=== PATIENT | female | born 1980 | race Caucasian/White ===

== ENCOUNTER → 2016-10-24 | Outpatient (CLI) | payer OTHER ==
[~2016-10-24] MED LIST: HYOS0.1216 PO; NF-ESOM40C PO; OXYC-197 PO; PROM25TA14 PO
--- OUTSIDE RECORDS SUMMARY | 2016-10-24 10:37 | XMS REPORT | Continuity of Care Document ---
Author Author [facility] Organization [facility] Address Unknown Phone Unavailable Care Team Providers Care Improvement Intern Name Role Phone ARMIDA GUERRERO MD PCP Insurance Providers Payer Name Policy Number Subscriber Name Relationship [employer] [id number] Adam Higgins 18 Self / Same As Patient Enter Insurance Name [id number] Jewel Higgins 01 Advance Directives Directive Response Recorded Date/Time Advance Directives No 06/28/16 9:37am Organ Donor Yes 06/28/16 9:37am Resuscitation Status Full Code 06/28/16 9:37am Problems No problem information available. Medications Current Home Medications Medication Dose Units Route Directions Days/Qty Instructions Start Date Hyoscyamine Sulfate 0.125 Mg 0.125 Mg Oral Every 6 Hours as needed for Pain 06/23/16 Promethazine Hcl (Phenergan Tablet) 25 Mg 25 Mg Oral Three Times A Day as needed for Nausea/Vomiting 06/23/16 Esomeprazole Magnesium 40 Mg 40 Mg Oral Twice A Day 06/23/16 Oxycodone Hcl/Acetaminophen 1 Each 1 Each Oral Every 4HRS as needed for Abdominal Pain 30 06/28/16 Social History Social History Problem Response Recorded Date/Time Alcohol Use Rarely Uses 06/28/2016 9:37am Recreational Drug Use No 06/28/2016 9:37am Recent Foreign Travel No 06/28/2016 9:37am Recent Infectious Disease Exposure No 06/28/2016 9:37am Smoking Status Never a Smoker 06/28/2016 9:37am Recent Hopitalizations No 06/28/2016 9:37am Query Response Start Date Stop Date Smoking Status Never a Smoker Hospital Discharge Instructions Patient Instructions Physician Instructions New, Converted or Re-Newed RX: RX on Chart Plan of Care/Instructions/FU: dressings off in 48 hours. Incentive spirometry. Follow-up in 3 weeks. Activity as Tolerated: Yes Discharge Diet: No Restrictions Care Plan Patient Instructions:: dressings off in 48 hours. Incentive spirometry. Follow-up in 3 weeks. Plan of Care Discharge Date 06/28/16 3:36pm Instructions/Education Provided ANESTHESIA INSTRUCTIONS POSTOP Laparoscopic Cholecystectomy (DC) Prescriptions See Medication Section Functional Status No functional status results. Allergies, Adverse Reactions, Alerts Allergen Type Severity Reaction Status Last Updated Codeine Allergy Unknown NAUSEA Active 06/23/16 Immunizations No immunization records. Vital Signs Acute Vital Signs Vital Response Date/Time Temperature (Fahrenheit) 97.3 degrees F (97.6 - 99.5) 06/28/2016 3:36pm Temperature (Calculated Celsius) 36.41628 degrees C (36.4 - 37.5) 06/28/2016 3:15pm Temperature Source Temporal 06/28/2016 3:36pm Pulse Rate (adult) 75 bpm (60 - 90) 06/28/2016 3:36pm Respiratory Rate 16 bpm (12 - 24) 06/28/2016 3:36pm O2 Sat by Pulse Oximetry 98 % (88 - 100) 06/28/2016 3:36pm Blood Pressure 124/67 mm Hg 06/28/2016 3:36pm Blood Pressure Mean 119 mm Hg 06/23/2016 9:21am Pain Numeric Pain Scale 2 06/28/2016 3:36pm Pain Intensity 2 06/28/2016 3:15pm Height (Feet) 5 feet 06/28/2016 9:37am Height (Inches) 1.00 inches 06/28/2016 9:37am Height (Calculated Centimeters) 154.871290 cm 06/28/2016 9:37am Weight (Pounds) 220 pounds 06/28/2016 9:37am Weight (Ounces) 5.0 oz 06/28/2016 9:37am Weight (Calculated Grams) 38634.07 gm 06/28/2016 9:37am Weight (Calculated Kilograms) 99.906330 kilograms 06/28/2016 9:37am Calculated BMI 41.6 06/28/2016 9:37am Results Pending Microbiology Results Procedure Source Collection Date/Time Procedures Procedure Status Date Provider(s) Robot-assisted laparoscopic cholecystectomy Completed 06/28/16 BARRERA VAZQUEZ MD Encounters Encounter Location Arrival/Admit Date Discharge/Depart Date Attending Provider Departed [facility] 06/28/16 9:35am 3:36pm BARRERA VAZQUEZ MD Departed Clinic [facility] 06/23/16 9:05am 06/23/16 9: 36am BARRERA VAZQUEZ MD Registered Clinic [facility] 06/20/16 6:52am CHRISTIANO DOWNING APRN
[2016-10-24 11:14] LABS: BASOPHILS % (AUTO) 1 % (0-10); EOSINOPHILS # (AUTO) 0.3 10^3/uL (0.0-0.3); EOSINOPHILS % (AUTO) 5 % (0-10); LYMPHOCYTES # (AUTO) 2.4 X 10^3 (1.0-4.0); LYMPHOCYTES % (AUTO) 33 % (12-44); MEAN CORPUSCULAR HEMOGLOBIN 27 PG (25-34); MEAN CORPUSCULAR HGB CONC 34 G/DL (32-36); MEAN CORPUSCULAR VOLUME 79 FL (80-99); MEAN PLATELET VOLUME 8.7 FL (7.4-10.4); MONOCYTES # (AUTO) 0.6 X 10^3 (0.0-1.0); MONOCYTES % (AUTO) 8 % (0-12); NEUTROPHILS % (AUTO) 54 % (42-75); PLATELET COUNT 355 10^3/uL (130-400); RED BLOOD COUNT 4.93 10^6/uL (4.35-5.85); RED CELL DISTRIBUTION WIDTH 14.6 % (10.0-14.5); WHITE BLOOD COUNT 7.4 10^3/uL (4.3-11.0)
[2016-10-24 11:42] LABS: ALANINE AMINOTRANSFERASE 15 U/L (0-55); ALBUMIN 3.9 G/DL (3.2-4.5); ANION GAP 6 MMOL/L (5-14); ASPARTATE AMINO TRANSFERASE 11 U/L (5-34); BILIRUBIN,TOTAL 0.5 MG/DL (0.1-1.0); BLOOD UREA NITROGEN 12 MG/DL (7-18); BUN/CREATININE RATIO 16; CALCIUM 8.9 MG/DL (8.5-10.1); CARBON DIOXIDE 26 MMOL/L (21-32); CHLORIDE 107 MMOL/L (98-107); CREATINE KINASE 55 U/L (29-168); CREATININE SERUM 0.74 MG/DL (0.60-1.30); GFR ESTIMATED > 60; GLUCOSE 107 MG/DL (70-105); POTASSIUM 3.9 MMOL/L (3.6-5.0); SODIUM 139 MMOL/L (135-145); TOTAL PROTEIN 6.4 G/DL (6.4-8.2)
[2016-10-24 11:49] LABS: TROPONIN I < 0.30 NG/ML (<0.30)
== END ==
LOC: CARD 10:28
PROVIDERS: ATTEND Nurse Practitioner Family
DX: R07.9 Chest pain, unspecified (principal)
CPT/HCPCS: 36415; 80053; 82550; 84484; 85025; 93005

== ENCOUNTER → 2017-01-11 | Outpatient (CLI) | payer OTHER ==
--- NOTE | 2017-01-11 15:52 | Diagnostic Imaging Report ---
INDICATION: Burning pain going down left side and left shoulder for approximately 3 days. FINDINGS: Frontal, lateral and swimmer's views of the thoracic spine demonstrate no fracture or subluxation. The disc spaces are of normal width. Mild anterior osteophytes are seen anteriorly at the T7 level. IMPRESSION: There are minimal degenerative changes of the thoracic spine. Dictated by: Dictated on workstation # [id number]
--- NOTE | 2017-01-11 15:53 | Diagnostic Imaging Report ---
INDICATION: Complains of burning pain going down left side and left shoulder for 3 days. COMPARISON STUDY: None. FINDINGS: Three views of the left shoulder demonstrate no fracture or dislocation. Small osteophytes are seen off the acromioclavicular joint. The joint spaces are of normal width. IMPRESSION: There are small osteophytes off of the left acromioclavicular joint. Dictated by: Dictated on workstation # [id number]
== END ==
LOC: RAD 14:44
PROVIDERS: ATTEND Nurse Practitioner Family
DX: M25.512 Pain in left shoulder (principal)
CPT/HCPCS: 72072; 73030

== ENCOUNTER → 2017-03-07 | Outpatient (CLI) | payer OTHER | DX: M54.5 Low back pain (principal) ==

== ENCOUNTER → 2017-03-13 | Outpatient (CLI) | payer OTHER ==
--- NOTE | 2017-03-13 16:28 | Diagnostic Imaging Report ---
INDICATION: Left lower quadrant abdominal pain for two weeks. FINDINGS: Uterus measures 8.4 x 5.8 x 5.0 cm. The endometrium is prominent with a thickness of 1.7 cm. There is no discrete myometrial or endometrial mass documented. There is blood flow to both ovaries. Right ovary measures 2.7 x 1.8 x 1.8 cm and contains an approximately 1.4 cm cyst along its margin. The left ovary measures 4.2 x 2.6 x 2.1 cm with an approximately 2.4 x 1.8 x 2.3 cm hyperechoic focus which may represent complex cyst. Other consideration would include endometrioma. No definite free fluid is seen. IMPRESSION: 1. Endometrial thickness may be related to menstrual cycle and clinical correlation is recommended. If indicated, followup study could be performed to document resolution. 2. Hyperechoic 2.4 x 1.8 x 2.3 cm structure in the left ovary is nonspecific and could represent complex cyst or possible endometrioma. This could also be further evaluated after passage of several menstrual cycles to document stability or resolution. Dictated by: Dictated on workstation # [id number]
== END ==
LOC: RAD 14:36
PROVIDERS: ATTEND Nurse Practitioner Family
DX: N83.9 Noninflammatory disorder of ovary, fallopian tube and broad ligament, unspecified (principal); R10.2 Pelvic and perineal pain; R10.32 Left lower quadrant pain
CPT/HCPCS: 76830; 76856

== ENCOUNTER → 2017-03-22 | Outpatient (CLI) | payer OTHER ==
--- NOTE | 2017-03-22 13:28 | Diagnostic Imaging Report ---
PROCEDURE: MR imaging cervical spine without contrast. TECHNIQUE: Multiplanar, multisequence MR imaging of the cervical spine was performed without contrast. INDICATION: Neck pain. FINDINGS: There is straightening of the cervical spine curvature. The spinal alignment is otherwise normal. The vertebral body heights and disc heights are preserved. There is a mild disc desiccation in the yyeac-gc-dmz cervical spine levels. There is homogeneous bone marrow signal in the vertebral bodies. The spinal cord has normal caliber, signal, and contour. The foramen magnum and upper cervical canal are widely patent. C2-C3: Unremarkable. C3-C4: There is a minimal posterior disc herniation or thickening of the posterior longitudinal ligament with no spinal canal or foraminal stenosis at this level. C4-C5: No significant disc herniation. No spinal canal or foraminal stenosis. C5-C6: No significant disc herniation, no spinal canal or foraminal stenosis. C6-C7: Unremarkable. C7-T1: Unremarkable. IMPRESSION: There is straightening of the cervical spine which may reflect muscle spasm. No significant spinal canal or foraminal stenosis at any level. Very minimal degenerative changes. Dictated by: Dictated on workstation # [id number]
== END ==
LOC: RAD 11:36
PROVIDERS: ATTEND Orthopaedic Surgery
DX: M54.2 Cervicalgia (principal)
CPT/HCPCS: 72141

== ENCOUNTER 2017-08-24 09:41 | Outpatient (RCR) | payer OTHER ==
[~2017-08-24 09:41] MED LIST changes: +HYOS-20 PO; -HYOS0.1216 PO
== END 2017-11-22 | disposition home or self-care (01) ==
LOC: ONC 09:41
PROVIDERS: ATTEND Internal Medicine Hematology & Oncology
DX: R79.89 Other specified abnormal findings of blood chemistry (principal); Z86.718 Personal history of other venous thrombosis and embolism; I10 Essential (primary) hypertension; F12.90 Cannabis use, unspecified, uncomplicated; E66.01 Morbid (severe) obesity due to excess calories; Z68.41 Body mass index [BMI] 40.0-44.9, adult; Z79.82 Long term (current) use of aspirin; Z79.899 Other long term (current) drug therapy
CPT/HCPCS: 99214

== ENCOUNTER 2017-10-02 17:40 | Emergency (ER) | payer OTHER ==
[~2017-10-02] VITALS: Ht 154.9 cm; Wt 95.3 kg
[2017-10-02 18:17] LABS: BASOPHILS # (AUTO) 0.1 10^3/uL (0.0-0.1); BASOPHILS % (AUTO) 0 % (0-10); EOSINOPHILS # (AUTO) 0.3 10^3/uL (0.0-0.3); EOSINOPHILS % (AUTO) 2 % (0-10); HEMATOCRIT 38 % (35-52); HEMOGLOBIN 13.6 G/DL (11.5-16.0); LYMPHOCYTES # (AUTO) 5.9 X 10^3 (1.0-4.0); LYMPHOCYTES % (AUTO) 42 % (12-44); MEAN CORPUSCULAR HEMOGLOBIN 27 PG (25-34); MEAN CORPUSCULAR HGB CONC 36 G/DL (32-36); MEAN CORPUSCULAR VOLUME 76 FL (80-99); MEAN PLATELET VOLUME 9.7 FL (7.4-10.4); MONOCYTES # (AUTO) 1.1 X 10^3 (0.0-1.0); MONOCYTES % (AUTO) 8 % (0-12); NEUTROPHILS # (AUTO) 6.8 X 10^3 (1.8-7.8); NEUTROPHILS % (AUTO) 48 % (42-75); PLATELET COUNT 419 10^3/uL (130-400); RED BLOOD COUNT 5.02 10^6/uL (4.35-5.85); RED CELL DISTRIBUTION WIDTH 15.1 % (10.0-14.5); WHITE BLOOD COUNT 14.1 10^3/uL (4.3-11.0)
[2017-10-02 18:31] LABS: ALANINE AMINOTRANSFERASE 29 U/L (0-55); ALBUMIN 4.2 GM/DL (3.2-4.5); ALKALINE PHOSPHATASE 90 U/L (40-136); BILIRUBIN,TOTAL 0.5 MG/DL (0.1-1.0); BUN/CREATININE RATIO 23; CALCIUM 9.9 MG/DL (8.5-10.1); CARBON DIOXIDE 18 MMOL/L (21-32); CHLORIDE 103 MMOL/L (98-107); GFR ESTIMATED > 60; GLUCOSE 97 MG/DL (70-105); POTASSIUM 3.5 MMOL/L (3.6-5.0); SODIUM 137 MMOL/L (135-145); TOTAL PROTEIN 7.4 GM/DL (6.4-8.2)
[2017-10-02 18:33] VITALS: BP 160/82
--- NOTE | 2017-10-02 18:33 | ED General ---
General Chief Complaint: Respiratory Problems Stated Complaint: SOB Nursing Triage Note: PT REPORTS WITH SOA, WEAKNESS AFTER BEING DIAGNOSED ON SUNDAY AT [facility] WITH A PE AND STARTED ON XARELTO. PT REPORTS STARTING PERIOD ON THE FOLLOWING DAY AND HAVING A VERY HEAVY PERIOD D/T THE XARELTO. PT STATES SOA AND WEAKNESS WORSENING TODAY. Nursing Sepsis Screen: No Definite Risk Source of Information: Patient Exam Limitations: No Limitations History of Present Illness Time Seen by Provider: 18:00 Initial Comments This 37-year-old woman presents to the emergency room with complaints of shortness of breath and lightheadedness after being diagnosed with pulmonary embolus at [facility] on September 26. She has been on Xarelto since that time. She started her menstrual period on the following day, September 27. She has been bleeding heavily since. Normally her menstrual cycle lasts about 5 days but she continues to have bleeding now. Bleeding is finally starting to slow today. She has gone through 2-3 pads per hour throughout the last few days. She is concerned about anemia. She also has some cough in the mornings that is productive. This is a long-term problem. She denies any fever or chills. She is a daily smoker of marijuana but has not smoked in the past few days. Hemoglobin on September 26 was 11.5. Vital signs are within normal limits at this time. Allergies and Home Medications Allergies Coded Allergies: codeine (Verified Allergy, Unknown, NAUSEA, 06/23/16) Home Medications Esomeprazole Magnesium 40 Mg Cap, 40 MG PO BID, (Reported) Hyoscyamine Sulfate 0.125 Mg Tablet, 0.125 MG PO Q6H PRN for PAIN, (Reported) Oxycodone HCl/Acetaminophen 1 Each Tablet, 1 EACH PO Q4H PRN for ABDOMINAL PAIN , #30 Prescribed by: BARRERA VAZQUEZ on 06/28/16 1208 Promethazine HCl 25 Mg Tablet, 25 MG PO TID PRN for NAUSEA/VOMITING, (Reported) Constitutional: see HPI, weakness EENTM: no symptoms reported Respiratory: see HPI Cardiovascular: see HPI Gastrointestinal: no symptoms reported Genitourinary: no symptoms reported : No Musculoskeletal: no symptoms reported Skin: no symptoms reported Psychiatric/Neurological: No Symptoms Reported Hematologic/Lymphatic: No Symptoms Reported Past Fkikbvt-Therol-Wyvmrv Hx Patient Social History Alcohol Use: Rarely Uses Number of Drinks Today: II Alcohol Beverage of Choice: Other Recreational Drug Use: Yes Drug of Choice: MARIJUANA DAILY Smoking Status: Never a Smoker 2nd Hand Smoke Exposure: Yes Recent Foreign Travel: No Contact w/Someone Who Travel: No Recent Infectious Disease Expo: No Recent Hopitalizations: No Physical Abuse: No Sexual Abuse: No Mistreated: No Fear: No Immunizations Up To Date Tetanus Booster (TDap): Less than 5yrs Date of Influenza Vaccine: Jun 17, 2011 Seasonal Allergies Seasonal Allergies: Yes Surgeries History of Surgeries: Yes (LIPOMA REMOVED, WISDOM TEETH, RIGHT CTR, ) Surgeries: Appendectomy, Gallbladder, Tubal Ligation Respiratory History of Respiratory Disorde: Yes Respiratory Disorders: Pulmonary Embolism Cardiovascular History of Cardiac Disorders: Yes Cardiac Disorders: Deep Vein Thrombosis, Hypertension Neurological History of Neurological Disord: Yes (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; SPASMS) Reproductive System : No Hx Reproductive Disorders: No Genitourinary History of Genitourinary Disor: No Gastrointestinal History of Gastrointestinal Di: Yes Gastrointestinal Disorders: Gastroesophageal Reflux, Gall Bladder Disease Musculoskeletal History of Musculoskeletal Dis: Yes (abnormal curvature of the spine due to muscle spasm) Musculoskeletal Disorders: Spasms Endocrine History of Endocrine Disorders: No HEENT History of HEENT Disorders: No Cancer History of Cancer: No Psychosocial History of Psychiatric Problem: Yes Behavioral Health Disorders: Depression Suicide Risk Score: 1 Integumentary History of Skin or Integumenta: No Blood Transfusions History of Blood Disorders: No Physical Exam Vital Signs Vital Sign - Last 12Hours 10/02/17 18:03 Temp 97.5 Pulse 101 Resp 24 B/P (MAP) 159/81 (107) Pulse Ox 100 O2 Delivery Room Air Capillary Refill : Less Than 3 Seconds General Appearance: No Apparent Distress, WD/WN HEENT: PERRL/EOMI, Normal ENT Inspection, Pharynx Normal Neck: Normal Inspection Respiratory: Lungs Clear, Normal Breath Sounds, No Accessory Muscle Use, No Respiratory Distress Cardiovascular: Regular Rate, Rhythm, No Edema, No Murmur Extremity: Normal Inspection, No Pedal Edema Neurologic/Psychiatric: Alert, Oriented x3, No Motor/Sensory Deficits, Normal 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, 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 Norm as Tested Skin: Normal Color, Warm/Dry Progress/Results/Core Measures Suspected Sepsis Recent Fever Within 48 Hours: No Infection Criteria Present: None New/Unexplained Altered Menta: No Sepsis Screen: No Definite Risk Sepsis Diagnosis: SIRS Temperature:97.5 Pulse: 101 Respiratory Rate: 24 Laboratory Tests 10/02/17 17:58: White Blood Count 14.1H Blood Pressure 159 /81 Mean: 107 Laboratory Tests 10/02/17 17:58: Creatinine 0.90, INR Comment 2.1H, Platelet Count 419H, Total Bilirubin 0.5 Results/Orders Lab Results Micro Results My Orders Medications Given in ED Vital Signs/I&O Capillary Refill : Less Than 3 Seconds Blood Pressure Mean: 107 Progress Note #1: Time: 18:31 Progress Note Patient seen and examined. Labs ordered. We will obtain a chest x-ray and orthostatic blood pressures. Vital signs are within normal limits at this time. Progress Note #2: Progress Note Workup was relatively unremarkable be leukocytosis was incidentally noted. Further workup was pursued to rule out identifiable causes of infection. Influenza screen was negative. Chest x-ray and urine were also clear. Heart rate elevated mildly with orthostatic vital signs. A liter of IV fluids was administered which did improve patient's symptoms. Patient was instructed to discontinue aspirin while on Xarelto. Diagnostic Imaging Diagonstic Imaging: Xray Plain Films/CT/US/NM/MRI: chest Comments Chest x-ray viewed by me and report reviewed. See report below: NAME: ADAM DE OLIVEIRA MED REC#: [id number] PT STATUS: REG ER : 1980 PHYSICIAN: LISA CHANEY MD ADMIT DATE: 10/02/17/ER Draft Date of Exam:10/02/17 CHEST PA/LAT (2 VIEW) INDICATION: Shortness of breath and weakness and dizziness PA and lateral chest obtained at 0702 p.m. Heart and mediastinal silhouette are normal in appearance. The lungs are clear. There is no pneumothorax or pleural fluid. IMPRESSION: Negative chest. Dictated on workstation # [id number] Dict: 10/02/[id number] Trans: 10/02/171856 NEHA [id number] Interpreted by: CARLOS TROY MD Departure Impression Impression: Primary Impression: Menorrhagia Qualified Codes: N92.2 - Excessive menstruation at puberty Additional Impressions: Pulmonary embolus Qualified Codes: I26.99 - Other pulmonary embolism without acute cor pulmonale Anticoagulated Dyspnea Qualified Codes: R06.00 - Dyspnea, unspecified Leukocytosis Qualified Codes: D72.829 - Elevated white blood cell count, unspecified Disposition: 01 HOME, SELF-CARE Condition: Improved Departure-Patient Inst. Decision time for Depature: 22:27 Referrals: ARMIDA GUERRERO MD (PCP) Primary Care Physician CHRISTIANO DOWNING APRN (Family) Primary Care Physician Patient Instructions: Pulmonary Embolism (Blood Clot in the Lungs) Add. Discharge Instructions: Follow-up with your primary care provider soon as possible. Continue taking Xarelto but stop aspirin until otherwise directed by your doctor. Return to the emergency room if symptoms worsen. Avoid any exposure to lung irritants including smoking of any kind. All discharge instructions reviewed with patient and/or family. Voiced understanding. Copy Copies To 1: ARMIDA GUERRERO MD, JOSHUA T MD Oct 02, 2017 18:33
[2017-10-02 18:34] VITALS: BP_SYST 118; BP_SYST 129; BP_DIAS 84; BP_DIAS 91
[2017-10-02 18:40] LABS: INR 2.1 (0.8-1.4); PROTHROMBIN TIME PATIENT 23.4 SEC (12.2-14.7)
--- NOTE | 2017-10-02 18:58 | Diagnostic Imaging Report ---
INDICATION: Shortness of breath and weakness and dizziness PA and lateral chest obtained at 0702 p.m. Heart and mediastinal silhouette are normal in appearance. The lungs are clear. There is no pneumothorax or pleural fluid. IMPRESSION: Negative chest. Dictated by: Dictated on workstation # [id number]
[2017-10-02] MEDS ORDERED: NS IV 1000 ML 1,000 ML ONE (19:36)
[2017-10-02 20:57] LABS: BILIRUBIN,URINE NEGATIVE (NEGATIVE); CLARITY,URINE VERY CLOUDY; COLOR,URINE RED; GLUCOSE, URINE (UA) NEGATIVE (NEGATIVE); KETONES,URINE 2+ (NEGATIVE); LEUKOCYTE ESTERASE ,URINE 1+ (NEGATIVE); NITRITE,URINE NEGATIVE (NEGATIVE); PH,URINE 6.5 (5-9); PROTEIN,URINE 3+ (NEGATIVE); UROBILINOGEN,URINE NORMAL (NORMAL)
[2017-10-02 21:13] LABS: RBC,URINE TNTC /HPF; WBC,URINE RARE /HPF
[2017-10-02 22:35] VITALS: BP 137/88
== END 2017-10-02 22:34 | disposition home or self-care (01) ==
LOC: EDUNIT# 17:40 → ER 17:42
DX: N92.2 Excessive menstruation at puberty (principal); I26.99 Other pulmonary embolism without acute cor pulmonale; D72.829 Elevated white blood cell count, unspecified; I10 Essential (primary) hypertension; K21.9 Gastro-esophageal reflux disease without esophagitis; F32.9 Major depressive disorder, single episode, unspecified; F12.10 Cannabis abuse, uncomplicated; Z90.49 Acquired absence of other specified parts of digestive tract; Z98.51 Tubal ligation status; Z86.718 Personal history of other venous thrombosis and embolism; Z79.01 Long term (current) use of anticoagulants
CPT/HCPCS: 36415; 71046; 80053; 81000; 83880; 85025; 85610; 85730; 87804; 96360

== ENCOUNTER 2018-02-25 15:50 | Emergency (ER) | payer OTHER ==
[~2018-02-25] VITALS: Ht 154.9 cm; Wt 95.3 kg
--- OUTSIDE RECORDS SUMMARY | 2018-02-25 16:00 | XMS REPORT | CCD ---
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 Name Role Phone PP Unavailable CCM Unavailable Summary Purpose Interface Exchange Insurance Providers Payer name Policy type / Coverage type Covered constitution party ID Effective Begin Date Effective End Date [facility] Commercial Insurance [id number] Unknown Unknown [employer] Commercial Insurance [id number] Unknown Unknown Family history Runs in the family Diagnosis Age At Onset Skin cancer Unknown Diabetes mellitus Type 2 Unknown brain aneursym Unknown Colon cancer Unknown Breast cancer Unknown Alcoholism Unknown Hyperlipidemia Unknown Brother Diagnosis Age At Onset Asthma Unknown Mother Diagnosis Age At Onset Diabetes mellitus Type 2 Unknown Arthritis Unknown Hyperlipidemia Unknown Father Diagnosis Age At Onset Asthma Unknown Social History Social History Element Codes Description Effective Dates Marital status Unknown Jewel Higgins 06/15/2016 Employment Unknown Currently employed 06/15/[address]: 795386907 Never smoker 06/15/2016 Alcohol history Unknown occasionally drinks alcohol 06/15/2016 Allergies, Adverse Reactions, Alerts Allergies, Adverse Reactions, Alerts data not found Past Medical History Illness Codes Condition Status Onset Date Resolved Date Pulmonary Embolus Unknown Active 10/04/2017 Unknown Other pulmonary embolism without acute cor pulmonale ICD-9: 415.19 ICD-10: I26.99 Active 10/04/2017 Unknown Essential (primary) hypertension ICD-9: 401.1 ICD-10: I10 Active 08/07/2017 Unknown Other chest pain ICD-9 : 786.59 ICD-10: R07.89 Active 08/07/2017 Unknown Other specified abnormal findings of blood chemistry ICD-9: 790.92 ICD-10: R79.89 Active 08/07/2017 Unknown Cervicalgia ICD-9: 723.1 ICD-10: M54.2 Active 02/28/2017 Unknown Gastro-esophageal reflux disease without esophagitis ICD-9: 530.81 ICD-10: K21.9 Active 06/14/2016 Unknown Muscle spasm of back ICD-9: 724.8 ICD-10: M62.830 Active 07/19/2017 Unknown Headache ICD-9: 784.0 ICD-10: R51 Active 05/18/2017 Unknown Left lower quadrant pain ICD-9: 789.04 ICD-10: R10.32 Active 03/09/2017 Unknown Pelvic and perineal pain ICD-9: [id number] ICD-10: R10.2 Active 03/05/2017 Unknown Low back pain ICD-9: 724.2 ICD-10: M54.5 Active 03/05/2017 Unknown Sacroiliitis, not elsewhere classified ICD-9: 720.2 ICD-10: M46.1 Active 03/05/2017 Unknown Other muscle spasm ICD -9: 728.85 ICD-10: M62.838 Active 02/28/2017 Unknown Other obesity due to excess calories ICD-9: 278.00 ICD-10: E66.09 Active 01/17/2017 Unknown Pain in left shoulder ICD-9: 719.41 ICD-10: M25.512 Active 01/17/2017 Unknown Acute vulvitis ICD-9: 616.10 ICD-10: N76.2 Active 11/03/2016 Unknown Acute vaginitis ICD-9 : 623.5 ICD-10: N76.0 Active 10/24/2016 Unknown Contact with and (suspected) exposure to infections with a predominantly sexual mode of transmission ICD-9: V01.6 ICD-10: Z20.2 Active 10/24/2016 Unknown Encounter for gynecological examination (general) (routine ) without abnormal findings ICD-9: V72.31 ICD-10: Z01.419 Active 10/24/2016 Unknown Pain in right shoulder ICD-9: 719.41 ICD-10: M25.511 Active 08/15/2016 Unknown Cellulitis of abdominal wall ICD-9: 682.2 ICD-10: L03.311 Active 07/05/2016 Unknown Other allergic rhinitis ICD-9: 477.8 ICD-10: J30.89 Active 06/14/2016 Unknown Right upper quadrant pain ICD-9: 789.01 ICD-10: R10.11 Active 06/14/2016 Unknown Problems Condition Codes Effective Dates Condition Status Pulmonary Embolus Unknown 10/04/2017 Active Other pulmonary embolism without acute cor pulmonale ICD-9: 415.19 ICD-10: I26.99 10/04/2017 Active Essential (primary) hypertension ICD-9: 401.1 ICD-10: I10 08/07/2017 Active Other chest pain ICD-9 : 786.59 ICD-10: R07.89 08/07/2017 Active Other specified abnormal findings of blood chemistry ICD-9: 790.92 ICD-10: R79.89 08/07/2017 Active Cervicalgia ICD-9: 723.1 ICD-10: M54.2 02/28/2017 Active Gastro-esophageal reflux disease without esophagitis ICD-9: 530.81 ICD-10: K21.9 06/14/2016 Active Muscle spasm of back ICD-9: 724.8 ICD-10: M62.830 07/19/2017 Active Headache ICD-9: 784.0 ICD-10: R51 05/18/2017 Active Left lower quadrant pain ICD-9: 789.04 ICD-10: R10.32 03/09/2017 Active Pelvic and perineal pain ICD-9: [id number] ICD-10: R10.2 03/05/2017 Active Low back pain ICD-9: 724.2 ICD-10: M54.5 03/05/2017 Active Sacroiliitis, not elsewhere classified ICD-9: 720.2 ICD-10: M46.1 03/05/2017 Active Other muscle spasm ICD -9: 728.85 ICD-10: M62.838 02/28/2017 Active Other obesity due to excess calories ICD-9: 278.00 ICD-10: E66.09 01/17/2017 Active Pain in left shoulder ICD-9: 719.41 ICD-10: M25.512 01/17/2017 Active Acute vulvitis ICD-9: 616.10 ICD-10: N76.2 11/03/2016 Active Acute vaginitis ICD-9 : 623.5 ICD-10: N76.0 10/24/2016 Active Contact with and (suspected) exposure to infections with a predominantly sexual mode of transmission ICD-9: V01.6 ICD-10: Z20.2 10/24/2016 Active Encounter for gynecological examination (general) (routine ) without abnormal findings ICD-9: V72.31 ICD-10: Z01.419 10/24/2016 Active Pain in right shoulder ICD-9: 719.41 ICD-10: M25.511 08/15/2016 Active Cellulitis of abdominal wall ICD-9: 682.2 ICD-10: L03.311 07/05/2016 Active Other allergic rhinitis ICD-9: 477.8 ICD-10: J30.89 06/14/2016 Active Right upper quadrant pain ICD-9: 789.01 ICD-10: R10.11 06/14/2016 Active Medications Medication Codes Instructions Start Date Stop Date Status Fill Instructions hydrocodone 5 mg-acetaminophen 325 mg tablet RxNorm: 042017 1 Tablet(s) PO QID as needed 09/06/2017 No Stop Date Active omeprazole 20 mg capsule,delayed release RxNorm: 291591 1 Capsule(s) PO BID 09/06/2017 08/31/2018 Active tizanidine 4 mg tablet RxNorm: 308859 1 Tablet(s) PO TID as needed 07/19/2017 11/15/2017 Active omeprazole 20 mg capsule,delayed release RxNorm: 877713 1 Capsule(s) PO daily 07/19/2017 09/05/2017 Inactive lisinopril 10 mg tablet RxNorm: 713619 1 Tablet(s) PO daily 02/201710/03/2017 Inactive hydrocodone 5 mg-acetaminophen 325 mg tablet RxNorm: 858270 1 Tablet(s) PO QID as needed 06/18/2017 09/05/2017 Inactive tizanidine 4 mg tablet RxNorm: 677433 1 Tablet(s) PO TID PRN TAKE 1 TABLET BY MOUTH THREE TIMES DAILY NEEDED 05/18/2017 06/26/2017 Inactive promethazine 25 mg/mL injection solution RxNorm: 697326 Milliliter(s) Inj 05/18/2017 05/18/2017 Inactive ketorolac 60 mg/2 mL intramuscular solution RxNorm: 932646 Milliliter(s) IM 05/18/2017 05/18/2017 Inactive hydrocodone 5 mg-acetaminophen 325 mg tablet RxNorm: 939382 1 Tablet(s) PO QID as needed 05/18/2017 06/17/2017 Inactive gabapentin 100 mg capsule RxNorm: 160917 TAKE 1 CAPSULE BY MOUTH THREE TIMES DAILY 04/23/2017 06/21/2017 Inactive hydrocodone 5 mg-acetaminophen 325 mg tablet RxNorm: 903919 1 Tablet(s) PO QID as needed 04/19/2017 05/17/2017 Inactive tizanidine 2 mg tablet RxNorm: 864878 TAKE 1 TABLET BY MOUTH THREE TIMES DAILY NEEDED 04/09/2017 05/17/2017 Inactive tizanidine 2 mg tablet RxNorm: 429673 1 Tablet(s) PO TID as needed 03/16/2017 03/25/2017 Inactive hydrocodone 5 mg-acetaminophen 325 mg tablet RxNorm: 167918 1 Tablet(s) PO QID as needed 03/16/2017 04/18/2017 Inactive Kenalog 40 mg/mL suspension for injection RxNorm: 8079599 1 Milliliter(s) Inj 03/05/2017 03/05/2017 Inactive Cipro 500 mg tablet RxNorm: 059657 1 Tablet(s) PO BID 201603/14/2017 Inactive Flagyl 500 mg tablet RxNorm: 444412 1 Tablet(s) PO TID 201603/14/2017 Inactive tizanidine 2 mg tablet RxNorm: 261276 1 Tablet(s) PO TID as needed 02/28/2017 03/09/2017 Inactive gabapentin 100 mg capsule RxNorm: 007528 1 Capsule(s) PO TID 04/22/2017 Inactive gabapentin 100 mg capsule RxNorm: 311542 1 Capsule(s) PO QHS 01/31/2017 Inactive cyclobenzaprine 5 mg tablet RxNorm: 281340 1-2 Tablet(s) PO TID as needed muscle spasms 01/11/2017 01/20/2017 Inactive Bactrim DS 800 mg-160 mg tablet RxNorm: 071670 1 Tablet(s) PO BID 11/03/2016 11/12/2016 Inactive hydrocodone 5 mg-acetaminophen 325 mg tablet RxNorm: 734824 1 Tablet(s) PO QID as needed 11/03/2016 03/15/2017 Inactive lisinopril 10 mg tablet RxNorm: 957461 1 Tablet(s) PO daily 12/02/2016 Inactive metronidazole 500 mg tablet RxNorm: 287133 1 Tablet(s) PO TID 10/30/2016 11/08/2016 Inactive metronidazole 500 mg tablet RxNorm: 205869 1 Tablet(s) PO TID 10/30/2016 10/29/2016 Inactive Zithromax Z-Nioclas 250 mg tablet RxNorm: 570505 1 Tablet(s) PO UD 10/24/2016 04/18/2017 Inactive Diflucan 150 mg tablet RxNorm: 884907 1 Tablet(s) PO daily 03/201711/06/2016 Inactive cyclobenzaprine 5 mg tablet RxNorm: 494871 1-2 Tablet(s) PO TID as needed muscle spasms 10/12/2016 10/21/2016 Inactive prednisone 20 mg tablet RxNorm: 790574 2 Tablet(s) PO daily 08/20/2016 Inactive Lamisil 250 mg tablet RxNorm: 247699 1 Tablet(s) PO daily If cleared after 1 week stop pill and use cream 08/16/20162015 Inactive cyclobenzaprine 5 mg tablet RxNorm: 729391 2 Tablet(s) PO TID as needed muscle spasms 08/16/2016 08/20/2016 Inactive Keflex 500 mg capsule RxNorm: 139773 1 Capsule(s) PO TID 201507/12/2016 Inactive mupirocin 2 % topical ointment RxNorm: 293034 1 Application TOP BID 07/06/2016 07/12/2016 Inactive Phenergan 25 mg tablet RxNorm: 314080 1 Tablet(s) PO TID as needed for nausea 06/19/2016 06/28/2016 Inactive hyoscyamine 0.125 mg sublingual tablet RxNorm: 3229690 1 Tablet(s) SL Q6 for pain 06/19/2016 06/18/2016 Inactive hyoscyamine 0.125 mg sublingual tablet RxNorm: 5617698 1 Tablet(s) SL Q6 for pain 06/19/2016 06/23/2016 Inactive Phenergan 25 mg tablet RxNorm: 163058 1 Tablet(s) PO TID as needed for nausea 06/19/2016 06/18/2016 Inactive Diflucan 150 mg tablet RxNorm: 502257 1 Tablet(s) PO daily 06/21/2016 Inactive amlodipine 5 mg tablet RxNorm: 160516 1 Tablet(s) PO QAM No Start Date Active lisinopril 40 mg tablet RxNorm: 939603 1 Tablet(s) PO QAM No Start Date Active Xarelto 20 mg tablet RxNorm: 7405056 1 Tablet(s) PO daily -Pt will start after she finishes 21 days of 15 mg BID No Start Date Active Maxzide-25mg 37.5 mg-25 mg tablet RxNorm: 33849 1 Tablet(s) PO QAM No Start Date Active Nexium 24HR 20 mg tablet,delayed release RxNorm: 3033683 1 Tablet(s) PO daily No Start Date 02/27/2017 Inactive aspirin 81 mg chewable tablet RxNorm: 860290 1 Tablet(s) PO daily No Start Date 02/27/2017 Inactive Medication Administered Medication Codes Instructions Start Date Status promethazine 25 mg/mL injection solution RxNorm: 674351 Milliliter 05/18/2017 No longer Active ketorolac 60 mg/2 mL intramuscular solution RxNorm: 935705 Milliliter 05/18/2017 No longer Active Kenalog 40 mg/mL suspension for injection RxNorm: 9421303 1Milliliter 03/05/2017 No longer Active Immunizations No Immunization data Assessments Condition Codes Effective Dates Other pulmonary embolism without acute cor pulmonale ICD-10 : I26.99 ICD-9: 415.19 10/04/2017 Other specified abnormal findings of blood chemistry ICD-10 : R79.89 ICD-9: 790.92 08/07/2017 Other chest pain ICD-10: R07.89 ICD-9: 786.59 08/07/2017 Essential (primary) hypertension ICD-10: I10 ICD-9: 401.1 08/07/2017 Cervicalgia ICD-10: M54.2 ICD-9: 723.1 07/19/2017 Gastro-esophageal reflux disease without esophagitis ICD-10 : K21.9 ICD-9: 530.81 07/19/2017 Muscle spasm of back ICD-10: M62.830 ICD-9: 724.8 07/19/2017 Headache ICD-10: R51 ICD-9: 784.0 05/18/2017 Left lower quadrant pain ICD-10: R10.32 ICD-9: 789.04 03/09/2017 Pelvic and perineal pain ICD-10: R10.2 ICD-9: QJO3127 03/09/2017 Sacroiliitis, not elsewhere classified ICD-10: M46.1 ICD-9: 720.2 03/05/2017 Low back pain ICD-10: M54.5 ICD-9: 724.2 03/05/2017 Other muscle spasm ICD-10: M62.838 ICD-9: 728.85 02/28/2017 Pain in left shoulder ICD-10: M25.512 ICD-9: 719.41 01/17/2017 Other obesity due to excess calories ICD-10: E66.09 ICD-9: 278.00 01/17/2017 Acute vulvitis ICD-10: N76.2 ICD-9: 616.10 11/03/2016 Encounter for gynecological examination (general) (routine) without abnormal findings ICD-10: Z01.419 ICD-9: V72.31 10/24/2016 Acute vaginitis ICD-10: N76.0 ICD-9: 623.5 10/24/2016 Contact with and (suspected) exposure to infections with a predominantly sexual mode of transmission ICD-10: Z20.2 ICD-9: V01.6 10/24/2016 Pain in right shoulder ICD-10: M25.511 ICD-9: 719.41 08/16/2016 Cellulitis of abdominal wall ICD-10: L03.311 ICD-9: 682.2 07/06/2016 Right upper quadrant pain ICD-10: R10.11 ICD-9: 789.01 06/15/2016 Other allergic rhinitis ICD-10: J30.89 ICD-9: 477.8 06/15/2016 Reason For Visit Reason For Visit Effective Dates Notes Hospital Follow Up 10/04/2017 hypertension 08/07/2017 back pain 07/19/2017 medication follow up 05/18/2017 abdominal pain 03/09/2017 back pain 03/05/2017 neck pain 02/28/2017 shoulder pain 01/17/2017 shoulder pain 01/11/2017 skin lesion 11/03/2016 vaginal discharge 10/24/2016 shoulder pain 08/16/2016 cellulitis 07/06/2016 abdominal pain 06/15/2016 Results Observation Observation Code Item Item Code Result Date Culture Urine [id number] URINE CULTURE SEE NOTES 03/08/2017 Urine Culture Ucult Complete Growth of aerobe sent to ref lab 03/07/2017 GC/CHL PRB [id number] Chl trach DNA Negative 10/25/2016 GC/CHL PRB [id number] GC PROBE Negative 10/25/2016 Wet Prep [id number] Yeast Vaginal None 10/24/2016 Wet Prep [id number] Trichomonas None 10/24/2016 Comp Metabolic Ycp422 NA 136 mEq/L 06/16/2016 Comp Metabolic Mjv654 K 4.3 mEq/L 06/16/2016 Comp Metabolic Ufd926 CL 103 mEq/L 06/16/2016 Comp Metabolic Mxu083 CO2 26.0 mEq/L 06/16/2016 Comp Metabolic Yww897 ANION GAP 11 06/16/2016 Comp Metabolic Kct931 GLUCOSE 115 mg/dL 06/16/2016 Comp Metabolic Qvn740 Creat 0.7 mg/dL 06/16/2016 Comp Metabolic Cwt751 eGFR 106 ml/min/1.73m2 06/16/2016 Comp Metabolic Naz451 BUN 11 mg/dL 06/16/2016 Comp Metabolic Umg921 B/C Ratio 16.7 Ratio 06/16/2016 Comp Metabolic Bus056 CALCIUM 9.0 mg/dL 06/16/2016 Comp Metabolic Thf301 ALK PHOS 89 U/L 06/16/2016 Comp Metabolic Csx932 AST(SGOT) 14 U/L 06/16/2016 Comp Metabolic Lbm785 ALT(SGPT) 20 U/L 06/16/2016 Comp Metabolic Dom257 BILI T 0.5 mg/dL 06/16/2016 Comp Metabolic Tqj437 ALBUMIN 3.6 g/dL 06/16/2016 Comp Metabolic Bkd430 TPRO 5.9 g/dL 06/16/2016 Comp Metabolic Zxk409 GLOB 2.3 g/dL 06/16/2016 Comp Metabolic Bkx412 A/G Ratio 1.6 Ratio 06/16/2016 Comp Metabolic Oqa276 Osmo 272 mOsmo 06/16/2016 Cbc With Differential Ord2 WBC 10.09 K/ul 06/16/2016 Cbc With Differential Ord2 RBC 4.82 M/ul 06/16/2016 Cbc With Differential Ord2 HGB 13.0 g/dl 06/16/2016 Cbc With Differential Ord2 Neut% 53.1 % 06/16/2016 Cbc With Differential Ord2 HCT 38.7 % 06/16/2016 Cbc With Differential Ord2 Lymph% 33.5 % 06/16/2016 Cbc With Differential Ord2 MCV 80.3 fl 06/16/2016 Cbc With Differential Ord2 [place]% 8.1 % 06/16/2016 Cbc With Differential Ord2 MCH 27.0 pg 06/16/2016 Cbc With Differential Ord2 MCHC 33.6 pg 06/16/2016 Cbc With Differential Ord2 Eos% 4.9 % 06/16/2016 Cbc With Differential Ord2 Baso% 0.4 % 06/16/2016 Cbc With Differential Ord2 PLT 337 K/ul 06/16/2016 Cbc With Differential Ord2 RDW 15.3 % 06/16/2016 Cbc With Differential Ord2 Neut ABS# 5.36 K/ul 06/16/2016 Cbc With Differential Ord2 Lymph ABS# 3.38 K/ul 06/16/2016 Cbc With Differential Ord2 [place] ABS# 0.8 K/ul 06/16/2016 Cbc With Differential Ord2 Eos ABS# 0.5 K/ul 06/16/2016 Cbc With Differential Ord2 Baso ABS# 0.0 K/ul 06/16/2016 Lipid Ord30 CHOL 153 mg/dL 06/16/2016 Lipid Ord30 HDL 43.0 mg/dl 06/16/2016 Lipid Ord30 TRIG 121 mg/dL 06/16/2016 Lipid Ord30 LDL 86 mg/dL 06/16/2016 Lipid Ord30 C/HDL 3.6 Ratio 06/16/2016 Tsh Ord6 hTSH II 2.03 uIU/mL 06/16/2016 Review of Systems System Result Effective Dates Constitutional No recent illness 2017 Constitutional No fever 10/04/2017 Constitutional fatigue 10/04/2017 Constitutional No chills 10/04/2017 Constitutional No diaphoresis 10/04/2017 Eyes No eye erythema 10/04/2017 Ears/Nose/Throat/Neck No nasal discharge 10/04/2017 Ears/Nose/Throat/Neck No nasal allergies 10/04/2017 Cardiovascular chest pain/pressure 2017 Cardiovascular No edema 10/04/2017 Respiratory No cough 10/04/2017 Respiratory dyspnea on exertion 2017 Gastrointestinal No abdominal pain 2017 Dermatologic No rash 10/04/2017 Neurologic No alteration of consciousness 10/04/2017 Neurologic No mental status change 2017 Constitutional recent illness 08/07/2017 Constitutional No chills 08/07/2017 Constitutional No diaphoresis 08/07/2017 Constitutional No fever 08/07/2017 Eyes No eye erythema 08/07/2017 Ears/Nose/Throat/Neck No nasal discharge 08/07/2017 Cardiovascular No chest pain/pressure Cardiovascular No dyspnea 08/07/2017 Cardiovascular No edema 08/07/2017 Cardiovascular hypertension 08/07/2017 Respiratory No cough 08/07/2017 Respiratory No chest congestion 2016 Musculoskeletal back pain 08/07/2017 Dermatologic No rash 08/07/2017 Neurologic No alteration of consciousness 08/07/2017 Neurologic No mental status change 2016 Constitutional No recent illness 2016 Constitutional No chills 07/19/2017 Constitutional No diaphoresis 07/19/2017 Constitutional No fever 07/19/2017 Eyes No eye erythema 07/19/2017 Ears/Nose/Throat/Neck No nasal discharge 07/19/2017 Ears/Nose/Throat/Neck No nasal allergies 07/19/2017 Cardiovascular No chest pain/pressure 10/2016 Cardiovascular No dyspnea 07/19/2017 Cardiovascular hypertension 07/19/2017 Cardiovascular No near-syncope/dizziness 07/19/2017 Cardiovascular No palpitations 2016 Respiratory No cough 07/19/2017 Respiratory No chest congestion 2016 Musculoskeletal back pain 07/19/2017 Musculoskeletal shoulder pain 07/19/2017 Neurologic No alteration of consciousness 07/19/2017 Neurologic No mental status change 2016 Constitutional No recent illness 2016 Constitutional No chills 05/18/2017 Constitutional No fever 05/18/2017 Eyes No blindness 05/18/2017 Ears/Nose/Throat/Neck No nasal discharge 05/18/2017 Cardiovascular No chest pain/pressure 09/2016 Cardiovascular No dyspnea 05/18/2017 Respiratory No cough 05/18/2017 Respiratory No dyspnea 05/18/2017 Musculoskeletal neck pain 05/18/2017 Dermatologic No rash 05/18/2017 Neurologic No alteration of consciousness 05/18/2017 Neurologic No mental status change 2016 Ears/Nose/Throat/Neck No dizziness 2016 Ears/Nose/Throat/Neck headache 2016 Gastrointestinal nausea 05/18/2017 Gastrointestinal No vomiting 05/18/2017 Constitutional recent illness 03/09/2017 Constitutional No chills 03/09/2017 Constitutional No diaphoresis 03/09/2017 Constitutional No fever 03/09/2017 Eyes No eye erythema 03/09/2017 Ears/Nose/Throat/Neck No nasal allergies 03/09/2017 Ears/Nose/Throat/Neck No nasal discharge 03/09/2017 Cardiovascular No chest pain/pressure Cardiovascular No dyspnea 03/09/2017 Respiratory No cough 03/09/2017 Respiratory No dyspnea 03/09/2017 Gastrointestinal abdominal pain 2016 Gastrointestinal No nausea 03/09/2017 Gastrointestinal No vomiting 03/09/2017 Genitourinary/Nephrology pelvic pain Musculoskeletal No back pain 03/09/2017 Dermatologic No rash 03/09/2017 Neurologic No alteration of consciousness 03/09/2017 Neurologic No mental status change 2016 Gastrointestinal No constipation 2016 Gastrointestinal No diarrhea 03/09/2017 Gastrointestinal No melena 03/09/2017 Gastrointestinal No hematochezia 2016 Constitutional recent illness 03/05/2017 Constitutional No chills 03/05/2017 Constitutional No diaphoresis 03/05/2017 Constitutional No fever 03/05/2017 Eyes No eye erythema 03/05/2017 Ears/Nose/Throat/Neck No nasal allergies 03/05/2017 Ears/Nose/Throat/Neck No nasal discharge 03/05/2017 Cardiovascular No chest pain/pressure Cardiovascular No dyspnea 03/05/2017 Respiratory No cough 03/05/2017 Respiratory No dyspnea 03/05/2017 Gastrointestinal abdominal pain 2016 Gastrointestinal No vomiting 03/05/2017 Gastrointestinal No nausea 03/05/2017 Genitourinary/Nephrology pelvic pain Musculoskeletal back pain 03/05/2017 Dermatologic No rash 03/05/2017 Neurologic No alteration of consciousness 03/05/2017 Neurologic No mental status change 2016 Constitutional No recent illness 2016 Constitutional No chills 02/28/2017 Constitutional No fever 02/28/2017 Eyes No eye erythema 02/28/2017 Ears/Nose/Throat/Neck No nasal discharge 02/28/2017 Cardiovascular No chest pain/pressure Cardiovascular No dyspnea 02/28/2017 Respiratory No cough 02/28/2017 Respiratory No dyspnea 02/28/2017 Neurologic No alteration of consciousness 02/28/2017 Neurologic No mental status change 2016 Musculoskeletal neck pain 02/28/2017 Dermatologic No rash 02/28/2017 Constitutional No recent illness 2016 Constitutional No chills 01/17/2017 Constitutional No fever 01/17/2017 Eyes No eye erythema 01/17/2017 Ears/Nose/Throat/Neck No nasal allergies 01/17/2017 Ears/Nose/Throat/Neck No nasal discharge 01/17/2017 Cardiovascular No chest pain/pressure 11/2016 Respiratory No dyspnea 01/17/2017 Musculoskeletal shoulder pain 01/17/2017 Neurologic No alteration of consciousness 01/17/2017 Neurologic No mental status change 2016 Constitutional obesity 01/17/2017 Constitutional No recent illness 2016 Constitutional No chills 01/11/2017 Constitutional No fever 01/11/2017 Eyes No eye erythema 01/11/2017 Ears/Nose/Throat/Neck No nasal allergies 01/11/2017 Ears/Nose/Throat/Neck No nasal discharge 01/11/2017 Cardiovascular No chest pain/pressure Respiratory No dyspnea 01/11/2017 Musculoskeletal shoulder pain 01/11/2017 Neurologic No alteration of consciousness 01/11/2017 Neurologic No mental status change 2016 Constitutional recent illness 11/03/2016 Constitutional No chills 11/03/2016 Constitutional No fever 11/03/2016 Eyes No eye erythema 11/03/2016 Ears/Nose/Throat/Neck No nasal discharge 11/03/2016 Ears/Nose/Throat/Neck No nasal allergies 11/03/2016 Cardiovascular No dyspnea 11/03/2016 Respiratory No cough 11/03/2016 Dermatologic sores 11/03/2016 Neurologic No alteration of consciousness 11/03/2016 Constitutional recent illness 10/24/2016 Constitutional No chills 10/24/2016 Constitutional No fever 10/24/2016 Eyes No eye erythema 10/24/2016 Ears/Nose/Throat/Neck No nasal allergies 10/24/2016 Ears/Nose/Throat/Neck No nasal discharge 10/24/2016 Respiratory No cough 10/24/2016 Neurologic No alteration of consciousness 10/24/2016 Genitourinary/Nephrology dysuria 2016 Genitourinary/Nephrology vaginal discharge 10/24/2016 Genitourinary/Nephrology pelvic pain 03/2017 Neurologic No mental status change 2016 Cardiovascular chest pain/pressure 2016 Respiratory chest tightness 10/24/2016 Constitutional No recent illness 2015 Constitutional No fever 08/16/2016 Eyes No eye erythema 08/16/2016 Ears/Nose/Throat/Neck No nasal discharge 08/16/2016 Ears/Nose/Throat/Neck No nasal allergies 08/16/2016 Cardiovascular No chest pain/pressure Respiratory No cough 08/16/2016 Respiratory No dyspnea 08/16/2016 Musculoskeletal joint complaint 2015 Neurologic No alteration of consciousness 08/16/2016 Neurologic No mental status change 2015 Constitutional recent illness 07/06/2016 Constitutional No anorexia 07/06/2016 Constitutional No night sweats 2015 Constitutional No chills 07/06/2016 Constitutional No diaphoresis 07/06/2016 Constitutional No fatigue 07/06/2016 Constitutional No fever 07/06/2016 Constitutional No malaise 07/06/2016 Constitutional No weight loss 07/06/2016 Constitutional No weight gain 07/06/2016 Constitutional No insomnia 07/06/2016 Dermatologic sores 07/06/2016 Gastrointestinal abdominal pain 2015 Gastrointestinal constipation 07/06/2016 Gastrointestinal No diarrhea 07/06/2016 Gastrointestinal No vomiting 07/06/2016 Gastrointestinal No nausea 07/06/2016 Constitutional No recent illness 2015 Constitutional No chills 06/15/2016 Constitutional No diaphoresis 06/15/2016 Constitutional No fever 06/15/2016 Eyes No eye erythema 06/15/2016 Ears/Nose/Throat/Neck nasal allergies Ears/Nose/Throat/Neck No nasal discharge 06/15/2016 Ears/Nose/Throat/Neck No postnasal drip 06/15/2016 Ears/Nose/Throat/Neck No sinus congestion 06/15/2016 Cardiovascular No chest pain/pressure Cardiovascular No dyspnea 06/15/2016 Respiratory No chest congestion 2015 Respiratory No cough 06/15/2016 Respiratory No dyspnea 06/15/2016 Gastrointestinal No abdominal pain 2015 Gastrointestinal No vomiting 06/15/2016 Gastrointestinal No nausea 06/15/2016 Genitourinary/Nephrology dysuria 2015 Musculoskeletal No joint complaint 2015 Dermatologic No rash 06/15/2016 Neurologic No alteration of consciousness 06/15/2016 Neurologic No mental status change 2015 Physical Exam Exam Name System Name Item Name Status Result Effective Dates Notes Full Exam - General 1994 Constitutional general appearance Overall: well developed 10/04/2017 None Full Exam - General 1994 Constitutional general appearance Overall: in no acute distress 10/04/2017 None Full Exam - General 1994 Constitutional general appearance Overall: well nourished 10/04/2017 None Full Exam - General 1994 Eyes conjunctiva /eyelids Overall: conjunctiva clear 10/04/2017 None Full Exam - General 1994 Eyes conjunctiva /eyelids Overall: cornea clear 10/04/2017 None Full Exam - General 1994 Eyes conjunctiva /eyelids Overall: eyelids normal 10/04/2017 None Full Exam - General 1994 Ears/Nose/Throat lips/teeth/gingiva Overall: benign lips 10/04/2017 None Full Exam - General 1994 Ears/Nose/Throat oral cavity/pharynx/larynx Overall: oral mucosa clear 10/04/2017 None Full Exam - General 1994 Respiratory respiratory effort/rhythm Overall: normal rate 10/04/2017 None Full Exam - General 1994 Respiratory respiratory effort/rhythm Overall: no retractions 10/04/2017 None Full Exam - General 1994 Respiratory auscultation Diffuse: diminished 10/04/2017 None Full Exam - General 1994 Respiratory auscultation Overall: breath sounds clear bilaterally 10/04/2017 None Full Exam - General 1994 Cardiovascular auscultation of heart Overall: normal heart sounds 10/04/2017 None Full Exam - General 1994 Cardiovascular auscultation of heart Overall: regular rate 10/04/2017 None Full Exam - General 1994 Musculoskeletal head and neck Overall: head atraumatic 10/04/2017 None Full Exam - General 1994 Musculoskeletal gait and station Overall: normal station 10/04/2017 None Full Exam - General 1994 Musculoskeletal gait and station Overall: normal gait 10/04/2017 None Full Exam - General 1994 Neurologic cranial nerves Overall: crainial nerves 2 - 12 grossly intact 10/04/2017 None Full Exam - General 1994 Psychiatric orientation/consciousness Overall: oriented to person, place and time 10/04/2017 None Full Exam - General 1994 Psychiatric mood and affect Overall: normal mood and affect 10/04/2017 None Full Exam - General 1994 Psychiatric appearance Overall: well-groomed, good eye contact 10/04/2017 None Full Exam - General 1994 Constitutional general appearance Overall: well developed 08/07/2017 None Full Exam - General 1994 Constitutional general appearance Overall: in no acute distress 08/07/2017 None Full Exam - General 1994 Constitutional general appearance Overall: well nourished 08/07/2017 None Full Exam - General 1994 Eyes conjunctiva /eyelids Overall: conjunctiva clear 08/07/2017 None Full Exam - General 1994 Eyes conjunctiva /eyelids Overall: eyelids normal 08/07/2017 None Full Exam - General 1994 Eyes conjunctiva /eyelids Overall: cornea clear 08/07/2017 None Full Exam - General 1994 Ears/Nose/Throat lips/teeth/gingiva Overall: benign lips 08/07/2017 None Full Exam - General 1994 Ears/Nose/Throat oral cavity/pharynx/larynx Overall: oral mucosa clear 08/07/2017 None Full Exam - General 1994 Respiratory auscultation Overall: breath sounds clear bilaterally 08/07/2017 None Full Exam - General 1994 Respiratory respiratory effort/rhythm Overall: no retractions 08/07/2017 None Full Exam - General 1994 Respiratory respiratory effort/rhythm Overall: normal rate 08/07/2017 None Full Exam - General 1994 Cardiovascular auscultation of heart Overall: regular rate 08/07/2017 None Full Exam - General 1994 Cardiovascular auscultation of heart Overall: normal heart sounds 08/07/2017 None Full Exam - General 1994 Musculoskeletal head and neck Overall: head atraumatic 08/07/2017 None Full Exam - General 1994 Neurologic cranial nerves Overall: crainial nerves 2 - 12 grossly intact 08/07/2017 None Full Exam - General 1994 Psychiatric orientation/consciousness Overall: oriented to person, place and time 08/07/2017 None Full Exam - General 1994 Psychiatric mood and affect Overall: normal mood and affect 08/07/2017 None Full Exam - General 1994 Psychiatric appearance Overall: well-groomed, good eye contact 08/07/2017 None Full Exam - General 1994 Constitutional general appearance Overall: well developed 07/19/2017 None Full Exam - General 1994 Constitutional general appearance Overall: in no acute distress 07/19/2017 None Full Exam - General 1994 Constitutional general appearance Overall: well nourished 07/19/2017 None Full Exam - General 1994 Eyes conjunctiva /eyelids Overall: conjunctiva clear 07/19/2017 None Full Exam - General 1994 Eyes conjunctiva /eyelids Overall: eyelids normal 07/19/2017 None Full Exam - General 1994 Eyes conjunctiva /eyelids Overall: cornea clear 07/19/2017 None Full Exam - General 1994 Eyes pupils and irises Overall: pupils equal, round, reactive to light and accomodation 07/19/2017 None Full Exam - General 1994 Ears/Nose/Throat lips/teeth/gingiva Overall: benign lips 07/19/2017 None Full Exam - General 1994 Ears/Nose/Throat oral cavity/pharynx/larynx Overall: oral mucosa clear 07/19/2017 None Full Exam - General 1994 Respiratory respiratory effort/rhythm Overall: no retractions 07/19/2017 None Full Exam - General 1994 Respiratory respiratory effort/rhythm Overall: normal rate 07/19/2017 None Full Exam - General 1994 Respiratory auscultation Overall: breath sounds clear bilaterally 07/19/2017 None Full Exam - General 1994 Cardiovascular auscultation of heart Overall: regular rate 07/19/2017 None Full Exam - General 1994 Cardiovascular auscultation of heart Overall: normal heart sounds 07/19/2017 None Full Exam - General 1994 Abdomen abdominal exam Overall: normal bowel sounds 07/19/2017 None Full Exam - General 1994 Abdomen abdominal exam Epigastric: tender to palpation 07/19/2017 None Full Exam - General 1994 Abdomen abdominal exam Epigastric: dull pain 07/19/2017 None Full Exam - General 1994 Abdomen abdominal exam Epigastric: no guarding 07/19/2017 None Full Exam - General 1994 Abdomen abdominal exam Epigastric: no rebound tenderness 07/19/2017 None Full Exam - General 1994 Abdomen abdominal exam Epigastric: soft 07/19/2017 None Full Exam - General 1994 Musculoskeletal head and neck Overall: head atraumatic 07/19/2017 None Full Exam - General 1994 Musculoskeletal gait and station Overall: normal station 07/19/2017 None Full Exam - General 1994 Musculoskeletal gait and station Overall: normal gait 07/19/2017 None Full Exam - General 1994 Musculoskeletal spine, ribs and pelvis Spine: tender @ cervical spine 07/19/2017 None Full Exam - General 1994 Neurologic cranial nerves Overall: crainial nerves 2 - 12 grossly intact 07/19/2017 None Full Exam - General 1994 Psychiatric orientation/consciousness Overall: oriented to person, place and time 07/19/2017 None Full Exam - General 1994 Psychiatric mood and affect Overall: normal mood and affect 07/19/2017 None Full Exam - General 1994 Psychiatric appearance Overall: well-groomed, good eye contact 07/19/2017 None Full Exam - Orthopedics Constitutional general appearance Overall: well nourished 05/18/2017 None Full Exam - Orthopedics Constitutional general appearance Overall: well developed 05/18/2017 None Full Exam - Orthopedics Constitutional general appearance Overall: in no acute distress 05/18/2017 None Full Exam - Orthopedics Eyes conjunctiva/ eyelids Overall: conjunctiva clear 05/18/2017 None Full Exam - Orthopedics Eyes conjunctiva/ eyelids Overall: eyelids normal 05/18/2017 None Full Exam - Orthopedics Ears/Nose/Throat lips/teeth/gingiva Overall: benign lips 05/18/2017 None Full Exam - Orthopedics Ears/Nose/Throat oral cavity/pharynx/larynx Overall: oral mucosa clear 05/18/2017 None Full Exam - Orthopedics Respiratory auscultation Overall: breath sounds clear bilaterally 05/18/2017 None Full Exam - Orthopedics Respiratory respiratory effort/rhythm Overall: no retractions 05/18/2017 None Full Exam - Orthopedics Respiratory respiratory effort/rhythm Overall: normal rate 05/18/2017 None Full Exam - Orthopedics Cardiovascular examination of vasculature Overall: clear S1 and S2 05/18/2017 None Full Exam - Orthopedics MS: head/neck insp & palp - H/N Cervical muscles palpation: tender left paracervical 05/18/2017 None Full Exam - Orthopedics MS: head/neck insp & palp - H/N Cervical muscles palpation: tender right paracervical 05/18/2017 None Full Exam - Orthopedics MS: head/neck insp & palp - H/N Cervical muscles palpation: tender left trapezius 05/18/2017 None Full Exam - Orthopedics MS: head/neck insp & palp - H/N Cervical muscles palpation: tender right trapezius 05/18/2017 None Full Exam - Orthopedics Psychiatric orientation/consciousness Overall: oriented to person, place and time 05/18/2017 None Full Exam - Orthopedics Psychiatric mood and affect Overall: normal mood and affect 05/18/2017 None Full Exam - Orthopedics Psychiatric appearance Overall: well-groomed, good eye contact 05/18/2017 None Full Exam - General 1994 Constitutional general appearance Overall: well developed 03/09/2017 None Full Exam - General 1994 Constitutional general appearance Overall: well nourished 03/09/2017 None Full Exam - General 1994 Constitutional general appearance Evidence of Distress: mild distress 03/09/2017 None Full Exam - General 1994 Constitutional general appearance Evidence of Distress: in distress secondary to pain 03/09/2017 None Full Exam - General 1994 Eyes conjunctiva /eyelids Overall: conjunctiva clear 03/09/2017 None Full Exam - General 1994 Eyes conjunctiva /eyelids Overall: eyelids normal 03/09/2017 None Full Exam - General 1994 Ears/Nose/Throat lips/teeth/gingiva Overall: benign lips 03/09/2017 None Full Exam - General 1994 Ears/Nose/Throat oral cavity/pharynx/larynx Overall: oral mucosa clear 03/09/2017 None Full Exam - General 1994 Respiratory auscultation Overall: breath sounds clear bilaterally 03/09/2017 None Full Exam - General 1994 Respiratory respiratory effort/rhythm Overall: no retractions 03/09/2017 None Full Exam - General 1994 Respiratory respiratory effort/rhythm Overall: normal rate 03/09/2017 None Full Exam - General 1994 Cardiovascular auscultation of heart Overall: regular rate 03/09/2017 None Full Exam - General 1994 Cardiovascular auscultation of heart Overall: normal heart sounds 03/09/2017 None Full Exam - General 1994 Abdomen abdominal exam Overall: normal bowel sounds 03/09/2017 None Full Exam - General 1994 Abdomen abdominal exam Lower quadrant: tender to palpation 03/09/2017 None Full Exam - General 1994 Abdomen abdominal exam Lower quadrant: no rebound tenderness 03/09/2017 None Full Exam - General 1994 Abdomen abdominal exam Lower quadrant: soft 03/09/2017 None Full Exam - General 1994 Abdomen abdominal exam Suprapubic: tender to palpation 03/09/2017 None Full Exam - General 1994 Abdomen abdominal exam Suprapubic: no rebound tenderness 03/09/2017 None Full Exam - General 1994 Abdomen abdominal exam Suprapubic: soft 03/09/2017 None Full Exam - General 1994 Musculoskeletal gait and station Overall: normal gait 03/09/2017 None Full Exam - General 1994 Musculoskeletal gait and station Overall: normal station 03/09/2017 None Full Exam - General 1994 Musculoskeletal head and neck Overall: head atraumatic 03/09/2017 None Full Exam - General 1994 Neurologic cranial nerves Overall: crainial nerves 2 - 12 grossly intact 03/09/2017 None Full Exam - General 1994 Psychiatric orientation/consciousness Overall: oriented to person, place and time 03/09/2017 None Full Exam - General 1994 Psychiatric appearance Overall: well-groomed, good eye contact 03/09/2017 None Full Exam - General 1994 Abdomen abdominal exam Suprapubic: voluntary guarding 03/09/2017 None Full Exam - General 1994 Abdomen abdominal exam Lower quadrant: voluntary guarding 03/09/2017 None Full Exam - General 1994 Psychiatric mood and affect Mood: flat 03/09/2017 None Full Exam - General 1994 Constitutional general appearance Overall: well developed 03/05/2017 None Full Exam - General 1994 Constitutional general appearance Overall: well nourished 03/05/2017 None Full Exam - General 1994 Constitutional general appearance Evidence of Distress: mild distress 03/05/2017 None Full Exam - General 1994 Constitutional general appearance Evidence of Distress: in distress secondary to pain 03/05/2017 None Full Exam - General 1994 Eyes conjunctiva /eyelids Overall: conjunctiva clear 03/05/2017 None Full Exam - General 1994 Eyes conjunctiva /eyelids Overall: eyelids normal 03/05/2017 None Full Exam - General 1994 Ears/Nose/Throat lips/teeth/gingiva Overall: benign lips 03/05/2017 None Full Exam - General 1994 Ears/Nose/Throat oral cavity/pharynx/larynx Overall: oral mucosa clear 03/05/2017 None Full Exam - General 1994 Respiratory auscultation Overall: breath sounds clear bilaterally 03/05/2017 None Full Exam - General 1994 Respiratory respiratory effort/rhythm Overall: no retractions 03/05/2017 None Full Exam - General 1994 Respiratory respiratory effort/rhythm Overall: normal rate 03/05/2017 None Full Exam - General 1994 Cardiovascular auscultation of heart Overall: regular rate 03/05/2017 None Full Exam - General 1994 Cardiovascular auscultation of heart Overall: normal heart sounds 03/05/2017 None Full Exam - General 1994 Abdomen abdominal exam Overall: normal bowel sounds 03/05/2017 None Full Exam - General 1994 Abdomen abdominal exam Suprapubic: tender to palpation 03/05/2017 None Full Exam - General 1994 Abdomen abdominal exam Suprapubic: no guarding 03/05/2017 None Full Exam - General 1994 Abdomen abdominal exam Suprapubic: soft 03/05/2017 None Full Exam - General 1994 Abdomen abdominal exam Suprapubic: no rebound tenderness 03/05/2017 None Full Exam - General 1994 Abdomen abdominal exam Lower quadrant: tender to palpation 03/05/2017 None Full Exam - General 1994 Abdomen abdominal exam Lower quadrant: no rebound tenderness 03/05/2017 None Full Exam - General 1994 Abdomen abdominal exam Lower quadrant: soft 03/05/2017 None Full Exam - General 1994 Musculoskeletal spine, ribs and pelvis Sacroiliac joints: tender left sacroiliac joint 03/05/2017 None Full Exam - General 1994 Musculoskeletal gait and station Overall: normal gait 03/05/2017 None Full Exam - General 1994 Musculoskeletal gait and station Overall: normal station 03/05/2017 None Full Exam - General 1994 Musculoskeletal head and neck Overall: head atraumatic 03/05/2017 None Full Exam - General 1994 Neurologic cranial nerves Overall: crainial nerves 2 - 12 grossly intact 03/05/2017 None Full Exam - General 1994 Psychiatric orientation/consciousness Overall: oriented to person, place and time 03/05/2017 None Full Exam - General 1994 Psychiatric mood and affect Overall: normal mood and affect 03/05/2017 None Full Exam - General 1994 Psychiatric appearance Overall: well-groomed, good eye contact 03/05/2017 None Full Exam - Orthopedics Constitutional general appearance Overall: well nourished 02/28/2017 None Full Exam - Orthopedics Constitutional general appearance Overall: well developed 02/28/2017 None Full Exam - Orthopedics Constitutional general appearance Overall: in no acute distress 02/28/2017 None Full Exam - Orthopedics Eyes conjunctiva/ eyelids Overall: conjunctiva clear 02/28/2017 None Full Exam - Orthopedics Eyes conjunctiva/ eyelids Overall: eyelids normal 02/28/2017 None Full Exam - Orthopedics Ears/Nose/Throat lips/teeth/gingiva Overall: benign lips 02/28/2017 None Full Exam - Orthopedics Ears/Nose/Throat oral cavity/pharynx/larynx Overall: oral mucosa clear 02/28/2017 None Full Exam - Orthopedics Respiratory respiratory effort/rhythm Overall: no retractions 02/28/2017 None Full Exam - Orthopedics Respiratory respiratory effort/rhythm Overall: normal rate 02/28/2017 None Full Exam - Orthopedics Psychiatric orientation/consciousness Overall: oriented to person, place and time 02/28/2017 None Full Exam - Orthopedics Psychiatric mood and affect Overall: normal mood and affect 02/28/2017 None Full Exam - Orthopedics Psychiatric appearance Overall: well-groomed, good eye contact 02/28/2017 None Full Exam - Orthopedics Respiratory auscultation Overall: breath sounds clear bilaterally 02/28/2017 None Full Exam - Orthopedics Cardiovascular examination of vasculature Overall: clear S1 and S2 02/28/2017 None Full Exam - Orthopedics MS: head/neck insp & palp - H/N Cervical muscles palpation: tender left paracervical 02/28/2017 None Full Exam - Orthopedics MS: head/neck insp & palp - H/N Cervical muscles palpation: tender right paracervical 02/28/2017 None Full Exam - Orthopedics MS: head/neck insp & palp - H/N Cervical muscles palpation: tender left trapezius 02/28/2017 None Full Exam - Orthopedics MS: head/neck insp & palp - H/N Cervical muscles palpation: tender right trapezius 02/28/2017 None Full Exam - Orthopedics Constitutional general appearance Overall: well nourished 01/17/2017 None Full Exam - Orthopedics Constitutional general appearance Overall: well developed 01/17/2017 None Full Exam - Orthopedics Constitutional general appearance Overall: in no acute distress 01/17/2017 None Full Exam - Orthopedics Eyes conjunctiva/ eyelids Overall: conjunctiva clear 01/17/2017 None Full Exam - Orthopedics Eyes conjunctiva/ eyelids Overall: eyelids normal 01/17/2017 None Full Exam - Orthopedics Ears/Nose/Throat lips/teeth/gingiva Overall: benign lips 01/17/2017 None Full Exam - Orthopedics Ears/Nose/Throat oral cavity/pharynx/larynx Overall: oral mucosa clear 01/17/2017 None Full Exam - Orthopedics Ears/Nose/Throat oral cavity/pharynx/larynx Overall: oropharyngeal mucosa clear 01/17/2017 None Full Exam - Orthopedics Respiratory respiratory effort/rhythm Overall: no retractions 01/17/2017 None Full Exam - Orthopedics Respiratory respiratory effort/rhythm Overall: normal rate 01/17/2017 None Full Exam - Orthopedics MS: left upper extremity insp & palp - LUE Shoulder: normal appearance 01/17/2017 None Full Exam - Orthopedics MS: left upper extremity range of motion - LUE Shoulder: pain with flexion 01/17/2017 mild Full Exam - Orthopedics MS: left upper extremity range of motion - LUE Shoulder: pain with extension 01/17/2017 mild Full Exam - Orthopedics Psychiatric orientation/consciousness Overall: oriented to person, place and time 01/17/2017 None Full Exam - Orthopedics Psychiatric mood and affect Overall: normal mood and affect 01/17/2017 None Full Exam - Orthopedics Psychiatric appearance Overall: well-groomed, good eye contact 01/17/2017 None Full Exam - Orthopedics Constitutional general appearance Overall: well nourished 01/11/2017 None Full Exam - Orthopedics Constitutional general appearance Overall: well developed 01/11/2017 None Full Exam - Orthopedics Constitutional general appearance Overall: in no acute distress 01/11/2017 None Full Exam - Orthopedics Eyes conjunctiva/ eyelids Overall: conjunctiva clear 01/11/2017 None Full Exam - Orthopedics Eyes conjunctiva/ eyelids Overall: eyelids normal 01/11/2017 None Full Exam - Orthopedics Ears/Nose/Throat lips/teeth/gingiva Overall: benign lips 01/11/2017 None Full Exam - Orthopedics Ears/Nose/Throat oral cavity/pharynx/larynx Overall: oral mucosa clear 01/11/2017 None Full Exam - Orthopedics Ears/Nose/Throat oral cavity/pharynx/larynx Overall: oropharyngeal mucosa clear 01/11/2017 None Full Exam - Orthopedics Respiratory respiratory effort/rhythm Overall: no retractions 01/11/2017 None Full Exam - Orthopedics Respiratory respiratory effort/rhythm Overall: normal rate 01/11/2017 None Full Exam - Orthopedics MS: left upper extremity insp & palp - LUE Shoulder: normal appearance 01/11/2017 None Full Exam - Orthopedics MS: left upper extremity range of motion - LUE Shoulder: pain with flexion 01/11/2017 mild Full Exam - Orthopedics MS: left upper extremity range of motion - LUE Shoulder: pain with extension 01/11/2017 mild Full Exam - Orthopedics Psychiatric orientation/consciousness Overall: oriented to person, place and time 01/11/2017 None Full Exam - Orthopedics Psychiatric mood and affect Overall: normal mood and affect 01/11/2017 None Full Exam - Orthopedics Psychiatric appearance Overall: well-groomed, good eye contact 01/11/2017 None Full Exam - Dermatology Constitutional general appearance Overall: well nourished 11/03/2016 None Full Exam - Dermatology Constitutional general appearance Overall: well developed 11/03/2016 None Full Exam - Dermatology Constitutional general appearance Overall: in no acute distress 11/03/2016 None Full Exam - Dermatology Eyes conjunctiva/ eyelids Overall: clear conjunctiva bilaterally 11/03/2016 None Full Exam - Dermatology Eyes conjunctiva/ eyelids Overall: normal eyelids 11/03/2016 None Full Exam - Dermatology Ears/Nose/Throat lips/teeth/gingiva Overall: benign lips 11/03/2016 None Full Exam - Dermatology Respiratory auscultation Overall: breath sounds clear bilaterally 11/03/2016 None Full Exam - Dermatology Respiratory respiratory effort/rhythm Overall: no retractions 11/03/2016 None Full Exam - Dermatology Respiratory respiratory effort/rhythm Overall: normal rate 11/03/2016 None Full Exam - Dermatology Cardiovascular peripheral vascular system Overall: S1S2 11/03/2016 None Full Exam - Dermatology Integument insp & palp - genitalia/groin/buttocks Location: on the left vulva 11/03/2016 None Full Exam - Dermatology Integument insp & palp - genitalia/groin/buttocks Color: erythematous 11/03/2016 None Full Exam - Dermatology Psychiatric orientation Overall: oriented to person, place and time 11/03/2016 None Full Exam - Dermatology Psychiatric mood and affect Overall: normal mood and affect 11/03/2016 None Full Exam - Dermatology Constitutional general appearance Overall: well nourished 10/24/2016 None Full Exam - Dermatology Constitutional general appearance Overall: well developed 10/24/2016 None Full Exam - Dermatology Constitutional general appearance Overall: in no acute distress 10/24/2016 None Full Exam - Dermatology Eyes conjunctiva/ eyelids Overall: clear conjunctiva bilaterally 10/24/2016 None Full Exam - Dermatology Eyes conjunctiva/ eyelids Overall: normal eyelids 10/24/2016 None Full Exam - Dermatology Ears/Nose/Throat lips/teeth/gingiva Overall: benign lips 10/24/2016 None Full Exam - Dermatology Respiratory respiratory effort/rhythm Overall: no retractions 10/24/2016 None Full Exam - Dermatology Respiratory respiratory effort/rhythm Overall: normal rate 10/24/2016 None Full Exam - Dermatology Psychiatric orientation Overall: oriented to person, place and time 10/24/2016 None Full Exam - Dermatology Psychiatric mood and affect Overall: normal mood and affect 10/24/2016 None Full Exam - Dermatology Genitourinary uterus Overall: normal size 10/24/2016 None Full Exam - Dermatology Genitourinary uterus Overall: nontender 10/24/2016 None Full Exam - Dermatology Genitourinary uterus Overall: normal contour 10/24/2016 None Full Exam - Dermatology Genitourinary cervix Cervical discharge: peña 10/24/2016 None Full Exam - Dermatology Genitourinary cervix Cervical discharge: green 10/24/2016 None Full Exam - Dermatology Genitourinary cervix Cervical discharge: malodorous 10/24/2016 None Full Exam - Dermatology Genitourinary cervix Inspection: normal os 10/24/2016 None Full Exam - Dermatology Genitourinary labia and vagina Overall: normal hair distribution 10/24/2016 None Full Exam - Dermatology Genitourinary labia and vagina Vaginal discharge: peña 10/24/2016 None Full Exam - Dermatology Genitourinary labia and vagina Vaginal discharge: green 10/24/2016 None Full Exam - Dermatology Genitourinary labia and vagina Vagina: no lesions present 10/24/2016 None Full Exam - Dermatology Genitourinary adnexa/parametria Overall: no tenderness 10/24/2016 None Full Exam - Dermatology Genitourinary bladder Overall: no tenderness 10/24/2016 None Full Exam - Dermatology Genitourinary bladder Overall: no mass lesions 10/24/2016 None Full Exam - Dermatology Genitourinary urethra Overall: no masses 10/24/2016 None Full Exam - Dermatology Genitourinary urethra Overall: good tone 10/24/2016 None Full Exam - Orthopedics Constitutional general appearance Overall: well nourished 08/16/2016 None Full Exam - Orthopedics Constitutional general appearance Overall: well developed 08/16/2016 None Full Exam - Orthopedics Constitutional general appearance Overall: in no acute distress 08/16/2016 None Full Exam - Orthopedics Eyes conjunctiva/ eyelids Overall: conjunctiva clear 08/16/2016 None Full Exam - Orthopedics Ears/Nose/Throat lips/teeth/gingiva Overall: benign lips 08/16/2016 None Full Exam - Orthopedics Respiratory respiratory effort/rhythm Overall: no retractions 08/16/2016 None Full Exam - Orthopedics Respiratory respiratory effort/rhythm Overall: normal rate 08/16/2016 None Full Exam - Orthopedics MS: spine/rib/pelvis insp & palp - S/R/P Thoracic spine palpation: tender facet joints 08/16/2016 None Full Exam - Orthopedics Psychiatric orientation/consciousness Overall: oriented to person, place and time 08/16/2016 None Full Exam - Orthopedics Psychiatric mood and affect Overall: normal mood and affect 08/16/2016 None Full Exam - Orthopedics Psychiatric appearance Overall: well-groomed, good eye contact 08/16/2016 None Full Exam - Dermatology Constitutional general appearance Overall: well developed 07/06/2016 None Full Exam - Dermatology Constitutional general appearance Overall: in no acute distress 07/06/2016 None Full Exam - Dermatology Constitutional general appearance Overall: well groomed 07/06/2016 None Full Exam - Dermatology Constitutional general appearance Overall: of normal body habitus 07/06/2016 None Full Exam - Dermatology Constitutional general appearance Nourishment: obese 07/06/2016 None Full Exam - Dermatology Psychiatric orientation Overall: oriented to person, place and time 07/06/2016 None Full Exam - Dermatology Respiratory auscultation Overall: breath sounds clear bilaterally 07/06/2016 None Full Exam - Dermatology Respiratory respiratory effort/rhythm Overall: no retractions 07/06/2016 None Full Exam - Dermatology Respiratory respiratory effort/rhythm Overall: normal rate 07/06/2016 None Full Exam - Dermatology Integument insp & palp - abdomen Location: in the periumbilical area 07/06/2016 lap site umbilicus with erythema spreading approx 2cm around incision-small amount of serous drainage noted from incision. Other lap sites x 2 d/i with no redness, drainage, warmth Full Exam - General 1994 Constitutional general appearance Overall: well developed 06/15/2016 None Full Exam - General 1994 Constitutional general appearance Overall: in no acute distress 06/15/2016 None Full Exam - General 1994 Constitutional general appearance Overall: well nourished 06/15/2016 None Full Exam - General 1994 Eyes conjunctiva /eyelids Overall: conjunctiva clear 06/15/2016 None Full Exam - General 1994 Eyes conjunctiva /eyelids Overall: cornea clear 06/15/2016 None Full Exam - General 1994 Eyes conjunctiva /eyelids Overall: eyelids normal 06/15/2016 None Full Exam - General 1994 Eyes pupils and irises Overall: pupils equal, round, reactive to light and accomodation 06/15/2016 None Full Exam - General 1994 Ears/Nose/Throat otoscopic exam Overall: external auditory canals clear 06/15/2016 None Full Exam - General 1994 Ears/Nose/Throat otoscopic exam Overall: tympanic membranes clear 06/15/2016 None Full Exam - General 1994 Ears/Nose/Throat lips/teeth/gingiva Overall: benign lips 06/15/2016 None Full Exam - General 1994 Ears/Nose/Throat oral cavity/pharynx/larynx Overall: oral mucosa clear 06/15/2016 None Full Exam - General 1994 Ears/Nose/Throat oral cavity/pharynx/larynx Overall: oropharyngeal mucosa clear 06/15/2016 None Full Exam - General 1994 Ears/Nose/Throat oral cavity/pharynx/larynx Overall: no masses 06/15/2016 None Full Exam - General 1994 Respiratory auscultation Overall: breath sounds clear bilaterally 06/15/2016 None Full Exam - General 1994 Respiratory respiratory effort/rhythm Overall: no retractions 06/15/2016 None Full Exam - General 1994 Respiratory respiratory effort/rhythm Overall: normal rate 06/15/2016 None Full Exam - General 1994 Cardiovascular auscultation of heart Overall: regular rate 06/15/2016 None Full Exam - General 1994 Cardiovascular auscultation of heart Overall: normal heart sounds 06/15/2016 None Full Exam - General 1994 Cardiovascular extremities Overall: no clubbing 06/15/2016 None Full Exam - General 1994 Lymphatic neck nodes Overall: anterior cervical chain benign 06/15/2016 None Full Exam - General 1994 Lymphatic neck nodes Overall: posterior cervical chain benign 06/15/2016 None Full Exam - General 1994 Musculoskeletal gait and station Overall: normal gait 06/15/2016 None Full Exam - General 1994 Musculoskeletal gait and station Overall: normal station 06/15/2016 None Full Exam - General 1994 Musculoskeletal head and neck Overall: head atraumatic 06/15/2016 None Full Exam - General 1994 Integument inspection of skin Overall: no rash, lesions 06/15/2016 None Full Exam - General 1994 Neurologic cranial nerves Overall: crainial nerves 2 - 12 grossly intact 06/15/2016 None Full Exam - General 1994 Psychiatric orientation/consciousness Overall: oriented to person, place and time 06/15/2016 None Full Exam - General 1994 Psychiatric mood and affect Overall: normal mood and affect 06/15/2016 None Full Exam - General 1994 Psychiatric appearance Overall: well-groomed, good eye contact 06/15/2016 None Full Exam - General 1994 Abdomen abdominal exam Overall: normal bowel sounds 06/15/2016 None Full Exam - General 1994 Abdomen abdominal exam Upper quadrant: tender to palpation 06/15/2016 None Full Exam - General 1994 Abdomen abdominal exam Upper quadrant: sharp pain 06/15/2016 None Full Exam - General 1994 Abdomen abdominal exam Upper quadrant: voluntary guarding 06/15/2016 None Full Exam - General 1994 Abdomen abdominal exam Upper quadrant: no guarding 06/15/2016 None Full Exam - General 1994 Abdomen abdominal exam Upper quadrant: non-tender to palpation 06/15/2016 None Full Exam - General 1994 Abdomen abdominal exam Upper quadrant: no rebound tenderness 06/15/2016 None Full Exam - General 1994 Abdomen abdominal exam Upper quadrant: no mass lesions 06/15/2016 None Full Exam - General 1994 Abdomen abdominal exam Upper quadrant: soft 06/15/2016 None Full Exam - General 1994 Abdomen abdominal exam Epigastric: dull pain 06/15/2016 None Full Exam - General 1994 Abdomen abdominal exam Epigastric: tender to palpation 06/15/2016 None Full Exam - General 1994 Abdomen abdominal exam Epigastric: no guarding 06/15/2016 None Full Exam - General 1994 Abdomen abdominal exam Epigastric: no rebound tenderness 06/15/2016 None Full Exam - General 1994 Abdomen abdominal exam Epigastric: no mass lesions 06/15/2016 None Full Exam - General 1994 Abdomen abdominal exam Epigastric: soft 06/15/2016 None Full Exam - General 1994 Abdomen abdominal exam Lower quadrant: non-tender to palpation 06/15/2016 None Full Exam - General 1994 Abdomen abdominal exam Lower quadrant: no guarding 06/15/2016 None Full Exam - General 1994 Abdomen abdominal exam Lower quadrant: no rebound tenderness 06/15/2016 None Full Exam - General 1994 Abdomen abdominal exam Lower quadrant: no mass lesions 06/15/2016 None Full Exam - General 1994 Abdomen abdominal exam Lower quadrant: soft 06/15/2016 None Procedures Procedure Codes Date KETOROLAC TROMETHAMINE INJ CPT-4: J1885 05/18/2017 PROMETHAZINE HCL INJECTION CPT-4: J2550 05/18/2017 DRAIN/INJECT JOINT/BURSA CPT-4: 64971 03/05/2017 TRIAMCINOLONE ACET INJ NOS CPT-4: J3301 03/05/2017 Vital Signs Date Vital 10/04/2017 Blood Pressure 1: 120/80 Code : 8480-6 BMI: 39.9 Code : 52604-5 Heart Rate 1 : 73 bpm Height: 5'1" SpO2: 99% Weight: 211 lbs 07/19/2017 Blood Pressure 1: 180/110 Code: 8480-6 Blood Pressure 1: 172/100 Code: 8480-6 BMI: 41.9 Code: 56652-7 Heart Rate 1: 102 bpm Height: 5'1" SpO2: 99% Weight: 222 lbs 05/18/2017 Blood Pressure 1: 122/74 Code : 8480-6 BMI: 42.7 Code : 07780-1 Heart Rate 1 : 72 bpm Height: 5'1" SpO2: 99% Weight: 226 lbs 03/09/2017 Blood Pressure 1: 144/72 Code : 8480-6 BMI: 42.5 Code : 46271-7 Heart Rate 1 : 95 bpm Height: 5'1" SpO2: 98% Weight: 225 lbs 03/05/2017 BMI: 42.5 Code: 00383-2 Heart Rate 1: 90 bpm Height: 5'1" Weight: 225 lbs 02/28/2017 Blood Pressure 1: 138/90 Code : 8480-6 BMI: 42.5 Code : 09664-0 Heart Rate 1 : 79 bpm Height: 5'1" SpO2: 99% Weight: 225 lbs 01/17/2017 Blood Pressure 1: 138/74 Code : 8480-6 BMI: 44.0 Code : 12720-5 Heart Rate 1 : 74 bpm Height: 5'1" SpO2: 98% Weight: 233 lbs 01/11/2017 Blood Pressure 1: 152/90 Code : 8480-6 BMI: 42.1 Code : 11835-8 Heart Rate 1 : 83 bpm Height: 5'1" Weight: 223 lbs 11/03/2016 Blood Pressure 1: 146/80 Code : 8480-6 BMI: 42.3 Code : 07334-3 Heart Rate 1 : 89 bpm Height: 5'1" SpO2: 98% Weight: 224 lbs 10/24/2016 Blood Pressure 1: 166/88 Code : 8480-6 BMI: 42.3 Code : 39452-0 Heart Rate 1 : 92 bpm Height: 5'1" SpO2: 99% Weight: 224 lbs 08/16/2016 Blood Pressure 1: 138/80 Code : 8480-6 BMI: 41.9 Code : 22860-4 Heart Rate 1 : 77 bpm Height: 5'1" SpO2: 97% Weight: 222 lbs 07/06/2016 Blood Pressure 1: 128/86 Code : 8480-6 BMI: 41.6 Code : 29841-0 Heart Rate 1 : 101 bpm Height: 5'1" SpO2: 98% Temperature: 36.5 (C) / 97.7 (F) Weight: 220 lbs 06/15/2016 Blood Pressure 1: 138/76 Code : 8480-6 BMI: 41.6 Code : 94160-4 Heart Rate 1 : 99 bpm Height: 5'1" SpO2: 99% Weight: 220 lbs Functional Status No Functional Status data History of Present Illness Symptom Name Status Result Effective Date Notes Hospital Follow Up _ Other: pulmonary embolism 10/04/2017 None Hospital Follow Up Quality acute 10/04/2017 None Hospital Follow Up Quality improving 10/04/2017 None Hospital Follow Up Onset and Resolution sudden in onset 10/04/2017 None Hospital Follow Up Onset of Symptom 1 weeks ago 10/04/2017 None hypertension Quality chronic 08/07/2017 None hypertension Quality worsening 08/07/2017 None hypertension Blood Pressure Values Stage 1:SBP 140-159 mmHg / DBP 90-99 mmHg 08/07/2017 None hypertension Blood Pressure Values Stage 2:SBP 160-179 mmHg / DBP 100-109 mmHg 08/07/2017 None hypertension Severity not consistently severe symptoms, the symptoms fluctuate from no symptoms to anxiety and headaches 08/07/2017 None hypertension Pertinent Findings Denies dyspnea 08/07/2017 None Hospital Follow Up _ Other: chest pain 08/07/2017 None Hospital Follow Up Onset and Resolution sudden in onset 08/07/2017 None back pain Location diffusely 07/19/2017 None back pain Quality constant 07/19/2017 None back pain Onset and Resolution ongoing 07/19/2017 None hypertension Onset and Resolution sudden in onset 07/19/2017 None hypertension Onset of Symptom 2 weeks ago 07/19/2017 None hypertension Blood Pressure Values Stage 2:SBP 160-179 mmHg / DBP 100-109 mmHg 07/19/2017 None medication follow up Additional Comments medication use 05/18/2017 None medication follow up Location oral intake 05/18/2017 None headache Location diffusely 05/18/2017 None headache Quality aching 05/18/2017 None headache Quality pressure 05/18/2017 None headache Onset and Resolution sudden in onset 05/18/2017 None headache Onset of Symptom _ days ago 05/18/2017 None headache Frequency of Episodes daily 05/18/2017 None abdominal pain Location in the LLQ 03/09/2017 None abdominal pain Location in the suprapubic area 03/09/2017 None abdominal pain Quality aching 03/09/2017 None abdominal pain Quality acute 03/09/2017 None abdominal pain Pertinent Findings Denies chills 03/09/2017 None abdominal pain Pertinent Findings Denies dyspnea 03/09/2017 None abdominal pain Pertinent Findings Denies melena 03/09/2017 None abdominal pain Pertinent Findings Denies emesis 03/09/2017 None abdominal pain Pertinent Findings Denies fever 03/09/2017 None abdominal pain Pertinent Findings Denies nausea 03/09/2017 None abdominal pain Pertinent Findings Denies urinary urgency 03/09/2017 None back pain Location lumbar-sacral spine 03/05/2017 None back pain Location in the left lower back area 03/05/2017 None back pain Quality acute 03/05/2017 None back pain Quality worsening 03/05/2017 None back pain Onset and Resolution gradual in onset 03/05/2017 None back pain Limitation on Activities moderately limits activities 03/05/2017 None back pain Triggers no known associated factors 03/05/2017 None back pain Pertinent Findings Denies fever 03/05/2017 None back pain Pertinent Findings Denies chills 03/05/2017 None back pain Pertinent Findings Denies weakness 03/05/2017 None abdominal pain Location in the suprapubic area 03/05/2017 None abdominal pain Location in the LLQ 03/05/2017 None abdominal pain Quality acute 03/05/2017 None abdominal pain Quality aching 03/05/2017 None abdominal pain Pertinent Findings Denies chills 03/05/2017 None abdominal pain Pertinent Findings Denies dyspnea 03/05/2017 None abdominal pain Pertinent Findings Denies melena 03/05/2017 None neck pain Location diffusely 02/28/2017 None neck pain Quality chronic 02/28/2017 None neck pain Onset and Resolution ongoing 02/28/2017 None neck pain Pertinent Findings Denies cough 02/28/2017 None neck pain Pertinent Findings Denies ear pain 02/28/2017 None shoulder pain Location diffusely 01/17/2017 None shoulder pain Quality aching 01/17/2017 None shoulder pain Quality constant 01/17/2017 None shoulder pain Quality dull 01/17/2017 None shoulder pain Quality sharp 01/17/2017 None shoulder pain Onset and Resolution sudden in onset 01/17/2017 None shoulder pain Onset of Symptom 3 days ago 01/17/2017 None shoulder pain Frequency of Episodes daily 01/17/2017 None shoulder pain Triggers activity 01/17/2017 None shoulder pain Alleviating Factors heat application 01/17/2017 None shoulder pain Location diffusely 01/11/2017 None shoulder pain Quality aching 01/11/2017 None shoulder pain Quality dull 01/11/2017 None shoulder pain Quality constant 01/11/2017 None shoulder pain Quality sharp 01/11/2017 None shoulder pain Onset and Resolution sudden in onset 01/11/2017 None shoulder pain Onset of Symptom 3 days ago 01/11/2017 None shoulder pain Frequency of Episodes daily 01/11/2017 None shoulder pain Mechanism of injury unknown 01/11/2017 None shoulder pain Triggers activity 01/11/2017 None shoulder pain Alleviating Factors heat application 01/11/2017 None skin lesion Onset and Resolution sudden in onset 11/03/2016 None skin lesion Onset of Symptom 5 days ago 11/03/2016 None skin lesion Frequency of Episodes daily 11/03/2016 None skin lesion Quality enlarging 11/03/2016 None skin lesion Quality firm 11/03/2016 None skin lesion Location labia minora 11/03/2016 None hypertension Quality constant 11/03/2016 None hypertension Onset and Resolution sudden in onset 11/03/2016 None hypertension Onset of Symptom 1 weeks ago 11/03/2016 None vaginal discharge Quality clear 10/24/2016 None vaginal discharge Quality thin 10/24/2016 None vaginal discharge Onset and Resolution sudden in onset 10/24/2016 None vaginal discharge Onset of Symptom 2 weeks ago 10/24/2016 None vaginal discharge Pertinent Findings vaginal pruritus 10/24/2016 None rash Location-Trunk on the perineum 10/24/2016 None shoulder pain Location deep 08/16/2016 None shoulder pain Location scapular border, right shoulder 08/16/2016 in to her neck shoulder pain Quality constant 08/16/2016 None shoulder pain Quality aching 08/16/2016 None shoulder pain Quality dull 08/16/2016 None shoulder pain Onset and Resolution sudden in onset 08/16/2016 None shoulder pain Frequency of Episodes daily 08/16/2016 None shoulder pain Onset of Symptom 1 weeks ago 08/16/2016 None cellulitis Quality intermittent 07/06/2016 None cellulitis Onset of Symptom 1 days ago 07/06/2016 None cellulitis Pertinent Findings Denies fever 07/06/2016 None cellulitis Pertinent Findings drainage 07/06/2016 None cellulitis Pertinent Findings pain 07/06/2016 None cellulitis Onset and Resolution ongoing 07/06/2016 None cellulitis Limitation on Activities does not limit activities 07/06/2016 None cellulitis Frequency of Episodes unchanged 07/06/2016 None cellulitis Triggers no known associated factors 07/06/2016 None cellulitis Associated Injuries unknown 07/06/2016 None abdominal pain Location in the epigastric area 06/15/2016 None abdominal pain Quality aching 06/15/2016 None abdominal pain Quality intermittent 06/15/2016 None abdominal pain Quality dull 06/15/2016 None abdominal pain Onset and Resolution gradual in onset 06/15/2016 None abdominal pain Onset of Symptom 1 years ago 06/15/2016 None abdominal pain Triggers meals 06/15/2016 None abdominal pain Exacerbating Factors eating 06/15/2016 None abdominal pain Location in the RUQ 06/15/2016 None Advance Directives No Advance Directive data Encounters Encounter Performer Location Codes Date 92650 EST. PATIENT, LEVEL III Diagnosis: Other pulmonary embolism without acute cor pulmonale[ICD10: I26.99] Reva Huggins MD, [facility] CPT-4: 68475 10/04/2017 85071 EST. PATIENT, LEVEL IV Diagnosis: Essential (primary) hypertension[ICD10: I10] Diagnosis: Other chest pain[ICD10: R07.89] Diagnosis: Other specified abnormal findings of blood chemistry[ICD10: R79.89] Reva Huggins MD, [facility] CPT-4: 07498 08/07/2017 40807 EST. PATIENT, LEVEL IV Diagnosis: Essential (primary) hypertension[ICD10: I10] Diagnosis: Gastro-esophageal reflux disease without esophagitis[ICD10: K21.9] Diagnosis: Cervicalgia[ICD10: M54.2] Diagnosis: Muscle spasm of back[ICD10: M62.830] Reva Huggins MD, [facility] CPT-4: 13687 07/19/2017 ([id number]) 06572 EST. PATIENT, LEVEL III Diagnosis: Cervicalgia[ICD10: M54.2] Diagnosis: Headache[ICD10: R51] Aleja Huggins MD, [facility] CPT-4: 77105 05/18/2017 25401 EST. PATIENT, LEVEL III Diagnosis: Left lower quadrant pain[ICD10: R10.32] Diagnosis: Pelvic and perineal pain[ICD10: R10.2] Reva Huggins MD, [facility] CPT-4: 72502 03/09/2017 17968 EST. PATIENT, LEVEL IV Diagnosis: Low back pain[ICD10: M54.5] Diagnosis: Sacroiliitis, not elsewhere classified[ICD10: M46.1] Diagnosis: Pelvic and perineal pain[ICD10: R10.2] Reva Huggins MD, [facility] CPT-4: 61484 03/05/2017 77210 EST. PATIENT, LEVEL III Diagnosis: Cervicalgia[ICD10: M54.2] Diagnosis: Other muscle spasm[ICD10: M62.838] Reva Huggins MD, [facility] CPT-4: 00522 02/28/2017 12683 EST. PATIENT, LEVEL III Diagnosis: Pain in left shoulder[ICD10: M25.512] Diagnosis: Other obesity due to excess calories[ICD10: E66.09] Reva Huggins MD, [facility] CPT-4: 43196 01/17/2017 14908 EST. PATIENT, LEVEL III Diagnosis: Pain in left shoulder[ICD10: M25.512] Diagnosis: Other obesity due to excess calories[ICD10: E66.09] Reva Huggins MD, [facility] CPT-4: 10384 01/11/2017 42000 EST. PATIENT, LEVEL III Diagnosis: Acute vulvitis[ICD10: N76.2] Reva Huggins MD, [facility] CPT-4 : 50203 11/03/2016 87454 EST. PATIENT, LEVEL III Diagnosis: Encounter for gynecological examination (general) (routine) without abnormal findings[ICD10: Z01.419] Diagnosis: Acute vaginitis[ICD10: N76.0] Diagnosis: Contact with and (suspected) exposure to infections with a predominantly sexual mode of transmission[ICD10: Z20.2] Reva Huggins MD, [facility] CPT-4: 08202 10/24/2016 26910 EST. PATIENT, LEVEL III Diagnosis: Pain in right shoulder[ICD10: M25.511] Reva Huggins MD, [facility] CPT-4: 97150 08/16/2016 75259 EST. 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 10/04/2017 Patient Education: Patient Medication Summary Completed 10/04/2017 Referral: Andrew Miller WPtel: 1 [facility] Referral Initiated 08/28/2017 Referral: External, Ordering Provider Referral Initiated 08/24/2017 Appointment: Reva Godinez WPtel: [phone] (30 min) Complex 08/16/2017 Care Plan: Referral Order SNOMED-CT : 809032011 Pending 08/13/2017 Care Plan: Referral Order SNOMED-CT : [id number] Pending 08/13/2017 Visit Plan: ER follow up - chest pain, hypertension, elevated D-dimer - will refer to Transportation Engineer and fur blowing machine attendant for follow up - pt is to notify clinic if symptoms return, or with any acute changes, questions , or concerns. 08/07/2017 Appointment: Reva Godinez WPtel: [address] [place], [place] [id number] (30 min) Complex 08/07/2017 Patient Education: Patient Medication Summary Completed 08/07/2017 Visit Plan: Hypertension - uncontrolled - Will refer to Dr. Pompa - the patient's medications have been modified as documented in the visit note. The patient has been counseled to cut back on salt in diet for a no added salt diet, low fat diet, start an exercise program with low weight bearing exercises and higher aerobic activity for heart health. The patient is to check blood pressure readings as an outpatient and either fax, call, or email the readings to the office next week for practitioner to review. The pt is to call for acute concerns. Esophageal Reflux - the patient has been counseled against excessive intake of caffeine, spicy foods, peppermint, and cinnamon - all of which can exacerbate esophageal reflux. The patient is to take medications as prescribed and call the office if the symptoms are not improving. 07/19/2017 Appointment: Reva Godinez WPtel: [phone] [facility] [place] (30 min) Complex 07/19/2017 Patient Education: Patient Medication Summary Completed 07/19/2017 Patient Education: Obesity Completed 07/19/2017 Patient Education: .Cervicalgia Neck Pain Completed 07/19/2017 Visit Plan: Neck Pain- pt to start with aspercreme or biofreeze to neck three times daily and start neck exercises daily. Headache- nausea-toradol and phenergan injections today in the office 05/18/2017 Appointment: Aleja Vidal WPtel: [phone] [phone] [place] (30 min) Complex 05/18/2017 Patient Education: Patient Medication Summary Completed 05/18/2017 Visit Plan: Ongoing LLQ and Suprapubic pain - Pt is to continue RX as prescribed - will order pelvic US and treat as indicated - pt is to notify clinic if symptoms do not improve, if they worsen, or with any changes or concerns. 03/09/2017 Appointment: [facility]el[facility] [phone] [facility] [place] ([facility]) Complex 03/09/2017 Patient Education: Patient Medication Summary Completed 03/09/2017 Patient Education: Obesity Completed 03/09/2017 Visit Plan: Low back pain- the patient was instructed in appropriate posture, need for weight loss to alleviate abdominal obesity that is worsening the patient's back pain.. The pt is to use prn antiinflammatories to manage acute pain. The patient is to call the office if the pain is worsening or does not improve. Joint Injection - Pt was given post - injection instructions. The pt has been advised to use anti-inflammatories post injection today, ice to the injected site, call if redness, warmth, or increased pain occurs at the site of injection. Sacroiliitis - back exercises discussed with the patient, pt to continue with anti-inflammatories. Pt is to call if the symptoms do not improve or if they worsen. Left lower quadrant pain, pelvic pain - will check UA with C&S if indicated, will send RX - pt is to notify clinic if symptoms do not improve, if they worsen, or with any other questions or concerns. 03/05/2017 Appointment: Reva [facility]inez WPtel[facility] [phone] [facility] [place] (15 min) Moderate 03/05/2017 Patient Education: Patient Medication Summary Completed 03/05/2017 Patient Education: Obesity Completed 03/05/2017 Visit Plan: Neck pain - ongoing - pt is working with PT and has a follow up appointment with ortho - will send RX - The pt is to use prn antiinflammatories to manage acute pain. The patient is to call the office if the pain is worsening or does not improve. 02/28/2017 Appointment: Rev[facility]Ptel[facility] [phone] [facility] [place] (30 min) Complex 02/28/2017 Patient Education: Patient Medication Summary Completed 02/28/2017 Patient Education: Obesity Completed 02/28/2017 Patient Education: .Cervicalgia Neck Pain Completed 02/28/2017 Care Plan: BMI Above normal followup SELF-MGMT EDUC & TRAIN 1 PT Pending 2016 Referral: Rene Hawkins Referral Completed 01/25/2017 Visit Plan: Left shoulder pain - will refer to Dr. Hawkins - The pt is to use prn antiinflammatories to manage acute pain. The patient is to call the office if the pain is worsening or does not improve. Obesity - chronic issue with this patient. The pt has been counseled about diet changes, calorie restriction, and need to exercise. Pt will RTC in one month for weight check. 01/17/2017 Patient Education: Patient Medication Summary Completed 01/17/2017 Patient Education: Obesity Completed 01/17/2017 Care Plan: Referral Order SNOMED-CT : [id number] Pending 01/17/2017 Care Plan: BMI Above normal followup SELF-MGMT EDUC & TRAIN 1 PT Pending 2016 Visit Plan: Left shoulder pain - The pt is to use prn antiinflammatories to manage acute pain. The patient is to call the office if the pain is worsening or does not improve. Obesity - chronic issue with this patient. The pt has been counseled about diet changes, calorie restriction, and need to exercise. Pt will RTC in one month for weight check. 01/11/2017 Appointment: Reva Godinez WPtel: [phone] [phone] (30 min) Complex 01/11/2017 Patient Education: Patient Medication Summary Completed 01/11/2017 Patient Education: Obesity Completed 01/11/2017 Visit Plan: Vulvitis - continue with oral antibiotics as previously directed, return to clinic as previously directed, call for acute change in symptoms, worsening redness, warmth, discharge. 11/03/2016 Appointment: Reva [facility]ztel: [phone] [facility] ([facility] min) Complex 11/03/2016 Patient Education: Patient Medication Summary Completed 11/03/2016 Visit Plan: Vaginal itching, burning, and discharge - pt states that her and her are in an open relationship and have multiple partners, pt has been treated with Diflucan in the past with some relief, but no resolution of symptoms - exam completed. Pap completed. Pt will be called with results of her testing. She was advised to continue with yearly annual exams. Safe sex practices discussed during office visit today. Call if any abnormal gynecologic issues during the next year, otherwise, RTC yearly or prn. 10/24/2016 Visit Plan: Vaginal itching, burning, and discharge - pt states that her and her are in an open relationship and have multiple partners, pt has been treated with Diflucan in the past with some relief, but no resolution of symptoms - exam completed. Pap completed. Pt will be called with results of her testing. She was advised to continue with yearly annual exams. Safe sex practices discussed during office visit today. Call if any abnormal gynecologic issues during the next year, otherwise, RTC yearly or prn. 10/24/2016 Appointment: Reva [facility]ztel: [phone] [facility] [place] (30 min) Complex 10/24/2016 Patient Education: Patient Medication Summary Completed 10/24/2016 Care Plan: C WET NC Pending 10/24/2016 Care Plan: PAP Pending 10/24/2016 Care Plan: GC/CHL PRB Pending 10/24/2016 Visit Plan: Right shoulder pain - muscle spasms in the right shoulder and along the thoracic spine - The pt is to use prn antiinflammatories to manage acute pain. The patient is to call the office if the pain is worsening or does not improve. 08/16/2016 Appointment: Aleja Vidal WPtel: [phone] (15 min) Moderate 08/16/2016 Patient Education: Patient Medication Summary Completed 08/16/2016 Patient Education: Obesity Completed 08/16/2016 Visit Plan: Cellulitis of abdomen-had gallbladder removed a week ago-culture of wound today in the office-RX for bactroban ointment provided and instructed on use-RX for oral abx provided and instructed to take if erythema spreads, increased drainage, etc. Recommend follow up with Dr Bravo. Call if symptoms do not resolve or if any worse. Patient verbalized understanding of plan. 07/06/2016 Visit Plan: Cellulitis of abdomen-had gallbladder removed a week ago-culture of wound today in the office-RX for bactroban ointment provided and instructed on use-RX for oral abx provided and instructed to take if erythema spreads, increased drainage, etc. Recommend follow up with Dr Bravo. Call if symptoms do not resolve or if any worse. Patient verbalized understanding of plan. 07/06/2016 Appointment: Aleja Vidal WPtel: [address] [place] [phone] (10 min) Simple 07/06/2016 Patient Education: Patient Medication Summary Completed 07/06/2016 Referral: Lawrence Referral Initiated 06/22/2016 Visit Plan: Allergies - chronic - recommended pt to use allergy medication as prescribed. Pt has been counseled as to the appropriate use of the medication. Pt to call if allergy symptoms are not controlled with the medication. If using nasal spray, instructions as follows: Nasal spray- use twice daily, one spray per nostril twice daily, after 30 minutes, rinse out nose with saline spray.. Use opposite hand per nostril to spray in the nasal steroid allergy spray. Esophageal Reflux - the patient has been counseled against excessive intake of caffeine, spicy foods, peppermint, and cinnamon - all of which can exacerbate esophageal reflux. The patient is to take medications as prescribed and call the office if the symptoms are not improving. Right upper quadrant pain - will order gallbladder US, will refer to Dr. Bravo. 06/15/2016 Patient Education: Patient Medication Summary Completed 06/15/2016 Care Plan: Referral Order SNOMED-CT : [id number] Pending 06/15/2016 Referral: Rene Hawkins Referral Completed Referral: Andrew Miller [facility]Ptel[facility] [address] [facility] [place] Referral Initiated Referral: Lawrence Referral Initiated Referral: External, Ordering Provider Referral Initiated Instructions Comment Will refer to Dr. Pompa for possible stress test. Start omeprazole daily Increase lisinopril to 20mg daily If top number of BP is over 150 and heart rate is over 60 then take a 1/2 of the bystolic Check blood pressures and heart rates at home (2 or 3 times a day and if you are feeling bad) Call me on Sunday to let me know what you blood pressures and heart rates have been doing. Will increase pain medication. Go to ER over the weekend with any acute changes or concerns. . Hypertension - uncontrolled - Will refer to Dr. Pompa - the patient's medications have been modified as documented in the visit note. The patient has been counseled to cut back on salt in diet for a no added salt diet, low fat diet, start an exercise program with low weight bearing exercises and higher aerobic activity for heart health. The patient is to check blood pressure readings as an outpatient and either fax , call, or email the readings to the office next week for practitioner to review. The pt is to call for acute concerns. Esophageal Reflux - the patient has been counseled against excessive intake of caffeine, spicy foods, peppermint, and cinnamon - all of which can exacerbate esophageal reflux. The patient is to take medications as prescribed and call the office if the symptoms are not improving. . Left shoulder pain - will refer to Dr. Hawkins - The pt is to use prn antiinflammatories to manage acute pain. The patient is to call the office if the pain is worsening or does not improve. Obesity - chronic issue with this patient. The pt has been counseled about diet changes, calorie restriction, and need to exercise. Pt will RTC in one month for weight check. . 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 . Right shoulder pain - muscle spasms in the right shoulder and along the thoracic spine - The pt is to use prn antiinflammatories to manage acute pain. The patient is to call the office if the pain is worsening or does not improve. . Left shoulder pain - The pt is to use prn antiinflammatories to manage acute pain. The patient is to call the office if the pain is worsening or does not improve. Obesity - chronic issue with this patient. The pt has been counseled about diet changes, calorie restriction, and need to exercise. Pt will RTC in one month for weight check. . Vulvitis - continue with oral antibiotics as previously directed, return to clinic as previously directed, call for acute change in symptoms, worsening redness, warmth, discharge. FOLLOW UP APPT WITH DR BRAVO BACTROBAN OINTMENT TO WOUND KEFLEX IF SYMPTOMS WORSEN . Cellulitis of abdomen-had gallbladder removed a week ago-culture of wound today in the office-RX for bactroban ointment provided and instructed on use-RX for oral abx provided and instructed to take if erythema spreads, increased drainage, etc. Recommend follow up with Dr Bravo. Call if symptoms do not resolve or if any worse. Patient verbalized understanding of plan. FOLLOW UP APPT WITH DR BRAVO BACTPHILIPPEAN OINTMENT TO WOUND KEFLEX IF SYMPTOMS WORSEN . Cellulitis of abdomen-had gallbladder removed a week ago-culture of wound today in the office-RX for bactroban ointment provided and instructed on use-RX for oral abx provided and instructed to take if erythema spreads, increased drainage, etc. Recommend follow up with Dr Bravo. Call if symptoms do not resolve or if any worse. Patient verbalized understanding of plan. . ER follow up - chest pain, hypertension, elevated D- dimer - will refer to Transportation Engineer and fur blowing machine attendant for follow up - pt is to notify clinic if symptoms return, or with any acute changes, questions, or concerns. . Allergies - chronic - recommended pt to use allergy medication as prescribed. Pt has been counseled as to the appropriate use of the medication. Pt to call if allergy symptoms are not controlled with the medication. If using nasal spray, instructions as follows: Nasal spray- use twice daily, one spray per nostril twice daily, after 30 minutes, rinse out nose with saline spray.. Use opposite hand per nostril to spray in the nasal steroid allergy spray. Esophageal Reflux - the patient has been counseled against excessive intake of caffeine, spicy foods, peppermint, and cinnamon - all of which can exacerbate esophageal reflux. The patient is to take medications as prescribed and call the office if the symptoms are not improving. Right upper quadrant pain - will order gallbladder US, will refer to Dr. Bravo. . Ongoing LLQ and Suprapubic pain - Pt is to continue RX as prescribed - will order pelvic US and treat as indicated - pt is to notify clinic if symptoms do not improve, if they worsen, or with any changes or concerns. . Vaginal itching, burning, and discharge - pt states that her and her are in an open relationship and have multiple partners, pt has been treated with Diflucan in the past with some relief, but no resolution of symptoms - exam completed. Pap completed. Pt will be called with results of her testing. She was advised to continue with yearly annual exams. Safe sex practices discussed during office visit today. Call if any abnormal gynecologic issues during the next year, otherwise, RTC yearly or prn. . Vaginal itching, burning, and discharge - pt states that her and her are in an open relationship and have multiple partners, pt has been treated with Diflucan in the past with some relief, but no resolution of symptoms - exam completed. Pap completed. Pt will be called with results of her testing. She was advised to continue with yearly annual exams. Safe sex practices discussed during office visit today. Call if any abnormal gynecologic issues during the next year, otherwise, RTC yearly or prn. . Low back pain- the patient was instructed in appropriate posture, need for weight loss to alleviate abdominal obesity that is worsening the patient's back pain.. The pt is to use prn antiinflammatories to manage acute pain. The patient is to call the office if the pain is worsening or does not improve. Joint Injection - Pt was given post - injection instructions. The pt has been advised to use anti-inflammatories post injection today, ice to the injected site, call if redness, warmth, or increased pain occurs at the site of injection. Sacroiliitis - back exercises discussed with the patient, pt to continue with anti-inflammatories. Pt is to call if the symptoms do not improve or if they worsen. Left lower quadrant pain, pelvic pain - will check UA with C&S if indicated, will send RX - pt is to notify clinic if symptoms do not improve, if they worsen , or with any other questions or concerns. . Neck pain - ongoing - pt is working with PT and has a follow up appointment with ortho - will send RX - The pt is to use prn antiinflammatories to manage acute pain. The patient is to call the office if the pain is worsening or does not improve. . Neck Pain- pt to start with aspercreme or biofreeze to neck three times daily and start neck exercises daily. Ktstbaey-jnleqb-vnwyffa and phenergan injections today in the office
--- OUTSIDE RECORDS SUMMARY | 2018-02-25 16:02 | XMS REPORT | CCD ---
Author Author Reva Godinez Organization Bhavani Huggins MD, [facility] Address [address] [place] [address] Phone Care Team Providers Care Computer Engineering Technician Name Role Phone PP Unavailable CCM Unavailable Summary Purpose Interface Exchange Insurance Providers Payer name Policy type / Coverage type Covered green party ID Effective Begin Date Effective End Date [facility] Commercial Insurance [id number] Unknown Unknown [employer] Commercial Insurance [id number] Unknown Unknown Family history Runs in the [...] Currently employed 06/15/[address]: [id number] Never smoker 06/15/2016 Alcohol history Unknown occasionally [...] 03/09/2017 Unknown Pelvic and perineal pain ICD-9: [id number] ICD-10: R10.2 Active 03/05/2017 Unknown Low back [...] 03/09/2017 Active Pelvic and perineal pain ICD-9: [id number] ICD-10: R10.2 03/05/2017 Active Low back pain [...] hydrocodone 5 mg-acetaminophen 325 mg tablet RxNorm: 458485 1 Tablet(s) PO QID as needed 09/06/2017 No Stop Date Active omeprazole 20 mg capsule,delayed release RxNorm: 819316 1 Capsule(s) PO BID 09/06/2017 08/31/2018 Active tizanidine 4 mg tablet RxNorm: 438282 1 Tablet(s) PO TID as needed 07/19/2017 11/15/2017 Active omeprazole 20 mg capsule,delayed release RxNorm: 635358 1 Capsule(s) PO daily 07/19/2017 09/05/2017 Inactive lisinopril 10 mg tablet RxNorm: 872361 1 Tablet(s) PO daily 02/201710/03/2017 Inactive hydrocodone 5 mg-acetaminophen 325 mg tablet RxNorm: 993427 1 Tablet(s) PO QID as needed 06/18/2017 09/05/2017 Inactive tizanidine 4 mg tablet RxNorm: 654465 1 Tablet(s) PO TID PRN TAKE 1 TABLET BY MOUTH THREE TIMES DAILY NEEDED 05/18/2017 06/26/2017 Inactive promethazine 25 mg/mL injection solution RxNorm: 643778 Milliliter(s) Inj 05/18/2017 05/18/2017 Inactive ketorolac 60 mg/2 mL intramuscular solution RxNorm: 042948 Milliliter(s) IM 05/18/2017 05/18/2017 Inactive hydrocodone 5 mg-acetaminophen 325 mg tablet RxNorm: 270184 1 Tablet(s) PO QID as needed 05/18/2017 06/17/2017 Inactive gabapentin 100 mg capsule RxNorm: 295261 TAKE 1 CAPSULE BY MOUTH THREE TIMES DAILY 04/23/2017 06/21/2017 Inactive hydrocodone 5 mg-acetaminophen 325 mg tablet RxNorm: 050640 1 Tablet(s) PO QID as needed 04/19/2017 05/17/2017 Inactive tizanidine 2 mg tablet RxNorm: 691713 TAKE 1 TABLET BY MOUTH THREE TIMES DAILY NEEDED 04/09/2017 05/17/2017 Inactive tizanidine 2 mg tablet RxNorm: 278419 1 Tablet(s) PO TID as needed 03/16/2017 03/25/2017 Inactive hydrocodone 5 mg-acetaminophen 325 mg tablet RxNorm: 632107 1 Tablet(s) PO QID as needed 03/16/2017 04/18/2017 Inactive Kenalog 40 mg/mL suspension for injection RxNorm: 8680015 1 Milliliter(s) Inj 03/05/2017 03/05/2017 Inactive Cipro 500 mg tablet RxNorm: 022567 1 Tablet(s) PO BID 201603/14/2017 Inactive Flagyl 500 mg tablet RxNorm: 744459 1 Tablet(s) PO TID 201603/14/2017 Inactive tizanidine 2 mg tablet RxNorm: 741135 1 Tablet(s) PO TID as needed 02/28/2017 03/09/2017 Inactive gabapentin 100 mg capsule RxNorm: 873874 1 Capsule(s) PO TID 04/22/2017 Inactive gabapentin 100 mg capsule RxNorm: 410957 1 Capsule(s) PO QHS 01/31/2017 Inactive cyclobenzaprine 5 mg tablet RxNorm: 640407 1-2 Tablet(s) PO TID as needed muscle spasms 01/11/2017 01/20/2017 Inactive Bactrim DS 800 mg-160 mg tablet RxNorm: 316678 1 Tablet(s) PO BID 11/03/2016 11/12/2016 Inactive hydrocodone 5 mg-acetaminophen 325 mg tablet RxNorm: 566452 1 Tablet(s) PO QID as needed 11/03/2016 03/15/2017 Inactive lisinopril 10 mg tablet RxNorm: 863120 1 Tablet(s) PO daily 12/02/2016 Inactive metronidazole 500 mg tablet RxNorm: 700670 1 Tablet(s) PO TID 10/30/2016 11/08/2016 Inactive metronidazole 500 mg tablet RxNorm: 753599 1 Tablet(s) PO TID 10/30/2016 10/29/2016 Inactive Zithromax Z-Nicolas 250 mg tablet RxNorm: 633236 1 Tablet(s) PO UD 10/24/2016 04/18/2017 Inactive Diflucan 150 mg tablet RxNorm: 101208 1 Tablet(s) PO daily 03/201711/06/2016 Inactive cyclobenzaprine 5 mg tablet RxNorm: 605678 1-2 Tablet(s) PO TID as needed muscle spasms 10/12/2016 10/21/2016 Inactive prednisone 20 mg tablet RxNorm: 769376 2 Tablet(s) PO daily 08/20/2016 Inactive Lamisil 250 mg tablet RxNorm: 290369 1 Tablet(s) PO daily If cleared after 1 week stop pill and use cream 08/16/20162015 Inactive cyclobenzaprine 5 mg tablet RxNorm: 991747 2 Tablet(s) PO TID as needed muscle spasms 08/16/2016 08/20/2016 Inactive Keflex 500 mg capsule RxNorm: 491691 1 Capsule(s) PO TID 201507/12/2016 Inactive mupirocin 2 % topical ointment RxNorm: 421338 1 Application TOP BID 07/06/2016 07/12/2016 Inactive Phenergan 25 mg tablet RxNorm: 107522 1 Tablet(s) PO TID as needed for nausea 06/19/2016 06/28/2016 Inactive hyoscyamine 0.125 mg sublingual tablet RxNorm: 3558994 1 Tablet(s) SL Q6 for pain 06/19/2016 06/18/2016 Inactive hyoscyamine 0.125 mg sublingual tablet RxNorm: 7728704 1 Tablet(s) SL Q6 for pain 06/19/2016 06/23/2016 Inactive Phenergan 25 mg tablet RxNorm: 582811 1 Tablet(s) PO TID as needed for nausea 06/19/2016 06/18/2016 Inactive Diflucan 150 mg tablet RxNorm: 480554 1 Tablet(s) PO daily 06/21/2016 Inactive amlodipine 5 mg tablet RxNorm: 330130 1 Tablet(s) PO QAM No Start Date Active lisinopril 40 mg tablet RxNorm: 797480 1 Tablet(s) PO QAM No Start Date Active Xarelto 20 mg tablet RxNorm: 8679031 1 Tablet(s) PO daily -Pt will start after she finishes 21 days of 15 mg BID No Start Date Active Maxzide-25mg 37.5 mg-25 mg tablet RxNorm: 65987 1 Tablet(s) PO QAM No Start Date Active Nexium 24HR 20 mg tablet,delayed release RxNorm: 0241298 1 Tablet(s) PO daily No Start Date 02/27/2017 Inactive aspirin 81 mg chewable tablet RxNorm: 197090 1 Tablet(s) PO daily No Start Date 02/27/2017 Inactive Medication Administered Medication Codes Instructions Start Date Status promethazine 25 mg/mL injection solution RxNorm: 389110 Milliliter 05/18/2017 No longer Active ketorolac 60 mg/2 mL intramuscular solution RxNorm: 372605 Milliliter 05/18/2017 No longer Active Kenalog 40 mg/mL suspension for injection RxNorm: 1597607 1Milliliter 03/05/2017 No longer Active Immunizations No [...] Pelvic and perineal pain ICD-10: R10.2 ICD-9: MRL6550 03/09/2017 Sacroiliitis, not elsewhere classified ICD-10: M46.1 [...] Item Item Code Result Date Culture Urine [id number] URINE CULTURE SEE NOTES 03/08/2017 Urine Culture Ucult Complete Growth of aerobe sent to ref lab 03/07/2017 GC/CHL PRB [id number] Chl trach DNA Negative 10/25/2016 GC/CHL PRB [id number] GC PROBE Negative 10/25/2016 Wet Prep [id number] Yeast Vaginal None 10/24/2016 Wet Prep [id number] Trichomonas None 10/24/2016 Comp Metabolic Ezp831 NA 136 mEq/L 06/16/2016 Comp Metabolic Ezj616 K 4.3 mEq/L 06/16/2016 Comp Metabolic Snf974 CL 103 mEq/L 06/16/2016 Comp Metabolic Kcs417 CO2 26.0 mEq/L 06/16/2016 Comp Metabolic Tdx438 ANION GAP 11 06/16/2016 Comp Metabolic Xjg100 GLUCOSE 115 mg/dL 06/16/2016 Comp Metabolic Lze278 Creat 0.7 mg/dL 06/16/2016 Comp Metabolic Rkj231 eGFR 106 ml/min/1.73m2 06/16/2016 Comp Metabolic Uij295 BUN 11 mg/dL 06/16/2016 Comp Metabolic Wuq706 B/C Ratio 16.7 Ratio 06/16/2016 Comp Metabolic Cwc557 CALCIUM 9.0 mg/dL 06/16/2016 Comp Metabolic Fhk685 ALK PHOS 89 U/L 06/16/2016 Comp Metabolic Tor832 AST(SGOT) 14 U/L 06/16/2016 Comp Metabolic Ukt172 ALT(SGPT) 20 U/L 06/16/2016 Comp Metabolic Bbd412 BILI T 0.5 mg/dL 06/16/2016 Comp Metabolic Hgt417 ALBUMIN 3.6 g/dL 06/16/2016 Comp Metabolic Ibs207 TPRO 5.9 g/dL 06/16/2016 Comp Metabolic Rjf523 GLOB 2.3 g/dL 06/16/2016 Comp Metabolic Rmm663 A/G Ratio 1.6 Ratio 06/16/2016 Comp Metabolic Zch925 Osmo 272 mOsmo 06/16/2016 Cbc With Differential [...] 80.3 fl 06/16/2016 Cbc With Differential Ord2 [place]% 8.1 % 06/16/2016 Cbc With Differential Ord2 [...] 3.38 K/ul 06/16/2016 Cbc With Differential Ord2 [place] ABS# 0.8 K/ul 06/16/2016 Cbc With Differential [...] INJECTION CPT-4: J2550 05/18/2017 DRAIN/INJECT JOINT/BURSA CPT-4: 54652 03/05/2017 TRIAMCINOLONE ACET INJ NOS CPT-4: J3301 03/05/2017 Vital Signs Date Vital 10/04/2017 Blood Pressure 1: 120/80 Code : 8480-6 BMI: 39.9 Code : 04673-6 Heart Rate 1 : 73 bpm Height: 5'1" SpO2: 99% Weight: 211 lbs 07/19/2017 Blood Pressure 1: 180/110 Code: 8480-6 Blood Pressure 1: 172/100 Code: 8480-6 BMI: 41.9 Code: 96349-7 Heart Rate 1: 102 bpm Height: 5'1" SpO2: 99% Weight: 222 lbs 05/18/2017 Blood Pressure 1: 122/74 Code : 8480-6 BMI: 42.7 Code : 99918-7 Heart Rate 1 : 72 bpm Height: 5'1" SpO2: 99% Weight: 226 lbs 03/09/2017 Blood Pressure 1: 144/72 Code : 8480-6 BMI: 42.5 Code : 79206-1 Heart Rate 1 : 95 bpm Height: 5'1" SpO2: 98% Weight: 225 lbs 03/05/2017 BMI: 42.5 Code: 63821-2 Heart Rate 1: 90 bpm Height: 5'1" Weight: 225 lbs 02/28/2017 Blood Pressure 1: 138/90 Code : 8480-6 BMI: 42.5 Code : 24383-8 Heart Rate 1 : 79 bpm Height: 5'1" SpO2: 99% Weight: 225 lbs 01/17/2017 Blood Pressure 1: 138/74 Code : 8480-6 BMI: 44.0 Code : 44297-3 Heart Rate 1 : 74 bpm Height: 5'1" SpO2: 98% Weight: 233 lbs 01/11/2017 Blood Pressure 1: 152/90 Code : 8480-6 BMI: 42.1 Code : 99242-8 Heart Rate 1 : 83 bpm Height: 5'1" Weight: 223 lbs 11/03/2016 Blood Pressure 1: 146/80 Code : 8480-6 BMI: 42.3 Code : 71626-9 Heart Rate 1 : 89 bpm Height: 5'1" SpO2: 98% Weight: 224 lbs 10/24/2016 Blood Pressure 1: 166/88 Code : 8480-6 BMI: 42.3 Code : 76022-3 Heart Rate 1 : 92 bpm Height: 5'1" SpO2: 99% Weight: 224 lbs 08/16/2016 Blood Pressure 1: 138/80 Code : 8480-6 BMI: 41.9 Code : 47586-4 Heart Rate 1 : 77 bpm Height: 5'1" SpO2: 97% Weight: 222 lbs 07/06/2016 Blood Pressure 1: 128/86 Code : 8480-6 BMI: 41.6 Code : 24665-5 Heart Rate 1 : 101 bpm Height: 5'1" SpO2: 98% Temperature: 36.5 (C) / 97.7 (F) Weight: 220 lbs 06/15/2016 Blood Pressure 1: 138/76 Code : 8480-6 BMI: 41.6 Code : 87707-3 Heart Rate 1 : 99 bpm Height: [...] data Encounters Encounter Performer Location Codes Date 02554 EST. PATIENT, LEVEL III Diagnosis: Other pulmonary embolism without acute cor pulmonale[ICD10: I26.99] Reva Huggins MD, [facility] CPT-4: 66113 10/04/2017 58568 EST. PATIENT, LEVEL IV Diagnosis: Essential (primary) hypertension[ICD10: I10] Diagnosis: Other chest pain[ICD10: R07.89] Diagnosis: Other specified abnormal findings of blood chemistry[ICD10: R79.89] Reva Huggins MD, [facility] CPT-4: 93857 08/07/2017 40267 EST. PATIENT, LEVEL IV Diagnosis: Essential (primary) hypertension[ICD10: I10] Diagnosis: Gastro-esophageal reflux disease without esophagitis[ICD10: K21.9] Diagnosis: Cervicalgia[ICD10: M54.2] Diagnosis: Muscle spasm of back[ICD10: M62.830] Reva Huggins MD, [facility] CPT-4: 76714 07/19/2017 (94480) 37142 EST. PATIENT, LEVEL III Diagnosis: Cervicalgia[ICD10: M54.2] Diagnosis: Headache[ICD10: R51] Aleja Huggins MD, [facility] CPT-4: 14635 05/18/2017 99755 EST. PATIENT, LEVEL III Diagnosis: Left lower quadrant pain[ICD10: R10.32] Diagnosis: Pelvic and perineal pain[ICD10: R10.2] Reva Huggins MD, [facility] CPT-4: 30297 03/09/2017 29146 EST. PATIENT, LEVEL IV Diagnosis: Low back pain[ICD10: M54.5] Diagnosis: Sacroiliitis, not elsewhere classified[ICD10: M46.1] Diagnosis: Pelvic and perineal pain[ICD10: R10.2] Reva Huggins MD, [facility] CPT-4: 54525 03/05/2017 87051 EST. PATIENT, LEVEL III Diagnosis: Cervicalgia[ICD10: M54.2] Diagnosis: Other muscle spasm[ICD10: M62.838] Reva Huggins MD, [facility] CPT-4: 90378 02/28/2017 95950 EST. PATIENT, LEVEL III Diagnosis: Pain in left shoulder[ICD10: M25.512] Diagnosis: Other obesity due to excess calories[ICD10: E66.09] Reva Huggins MD, [facility] CPT-4: 46802 01/17/2017 24644 EST. PATIENT, LEVEL III Diagnosis: Pain in left shoulder[ICD10: M25.512] Diagnosis: Other obesity due to excess calories[ICD10: E66.09] Reva Huggins MD, [facility] CPT-4: 35479 01/11/2017 47577 EST. PATIENT, LEVEL III Diagnosis: Acute vulvitis[ICD10: N76.2] Reva Huggins MD, [facility] CPT-4 : 46845 11/03/2016 52864 EST. PATIENT, LEVEL III Diagnosis: Encounter for gynecological examination (general) (routine) without abnormal findings[ICD10: Z01.419] Diagnosis: Acute vaginitis[ICD10: N76.0] Diagnosis: Contact with and (suspected) exposure to infections with a predominantly sexual mode of transmission[ICD10: Z20.2] Reva Huggins MD, [facility] CPT-4: 23534 10/24/2016 20238 EST. PATIENT, LEVEL III Diagnosis: Pain in right shoulder[ICD10: M25.511] Reva Huggins MD, [facility] CPT-4: 89799 08/16/2016 24971 EST. 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 10/04/2017 Appointment: Reva Godinez WPtel: [address] [place], [place] [phone] (30 min) Complex 10/04/2017 Patient Education: Patient Medication Summary Completed 10/04/2017 Referral: Andrew Miller WPtel: [address] [place], [place] [phone] Referral Initiated 08/28/2017 Referral: External, Ordering Provider Referral Initiated 08/24/2017 Appointment: Reva Godinez WPtel: [address] [place], [place] [phone] (30 min) Complex 08/16/2017 Care Plan: Referral Order SNOMED-CT : 649883748 Pending 08/13/2017 Care Plan: Referral Order SNOMED-CT : 967499978 Pending 08/13/2017 Visit Plan: ER follow up - chest pain, hypertension, elevated D-dimer - will refer to Pressure Tank Operator and floor worker transfer bay for follow up - pt is to notify clinic if symptoms return, or with any acute changes, questions , or concerns. 08/07/2017 Appointment: Reva Godinez WPtel: [address] [place], [place] [phone] (30 min) Complex 08/07/2017 Patient Education: Patient [...] not improving. 07/19/2017 Appointment: Reva Godinez WPtel: [phone] [facility] [place] (30 min) Complex 07/19/2017 Patient Education: Patient Medication Summary Completed 07/19/2017 Patient Education: Obesity Completed 07/19/2017 Patient Education: .Cervicalgia Neck Pain Completed 07/19/2017 Visit Plan: Neck Pain- pt to start with aspercreme or biofreeze to neck three times daily and start neck exercises daily. Headache- nausea-toradol and phenergan injections today in the office 05/18/2017 Appointment: Aleja Vidal WPtel: [phone] [phone] [place] (30 min) Complex 05/18/2017 Patient Education: Patient Medication Summary Completed 05/18/2017 Visit Plan: Ongoing LLQ and Suprapubic pain - Pt is to continue RX as prescribed - will order pelvic US and treat as indicated - pt is to notify clinic if symptoms do not improve, if they worsen, or with any changes or concerns. 03/09/2017 [phone] [facility] [place] ([facility] Complex 03/09/2017 Patient Education: [...] or concerns. 03/05/2017 Appointment: Reva Godinez WPtel: [phone] [facility] (15 min) Moderate 03/05/2017 Patient Education: Patient [...] not improve. 02/28/2017 [facility]ment: [facility] [phone] [facility] [place] ([facility] min) Complex 02/28/2017 Patient Education: [...] 01/17/2017 Care Plan: Referral Order SNOMED-CT : 367711397 Pending 01/17/2017 Care Plan: BMI Above normal [...] weight check. 01/11/2017 Appointment: Reva Godinez WPtel: [phone] [facility] (30 min) Complex 01/11/2017 Patient Education: Patient Medication Summary Completed 01/11/2017 Patient Education: Obesity Completed 01/11/2017 Visit Plan: Vulvitis - continue with oral antibiotics as previously directed, return to clinic as previously directed, call for acute change in symptoms, worsening redness, warmth, discharge. 11/03/2016 App[facility]ment: [facility] [phone] [phone] ([facility] Complex 11/03/2016 Patient Education: Patient [...] RTC yearly or prn. 10/24/2016 [facility]ment: [facility] [phone] [facility] ([facility]) Complex 10/24/2016 Patient Education: Patient Medication Summary Completed 10/24/2016 Care Plan: C WET VT Pending 10/24/2016 Care Plan: PAP Pending 10/24/2016 Care Plan: GC/CHL PRB Pending 10/24/2016 Visit Plan: Right shoulder pain - muscle spasms in the right shoulder and along the thoracic spine - The pt is to use prn antiinflammatories to manage acute pain. The patient is to call the office if the pain is worsening or does not improve. 08/16/2016 App[facility]ment: [facility] [phone] [phone] (15 min) Moderate 08/16/2016 Patient Education: Patient [...] of plan. 07/06/2016 App[facility]ment: [facility] [phone] [phone] (10 min) Simple 07/06/2016 Patient Education: Patient [...] upper quadrant pain - will order gallbladder , will refer to Dr. Bravo. 06/15/2016 Patient Education: Patient Medication Summary Completed 06/15/2016 Care Plan: Referral Order SNOMED-CT : 183200337 Pending 06/15/2016 Referral: Rene Hawkins Referral Completed Referral: Andrew Miller [facility]Ptel[facility] [address] [facility] [place] Referral Initiated Referral: Lawrence Referral Initiated [...] Pt is to follow up with her forensic artist and notify clinic with any changes in [...] discharge. FOLLOW UP APPT WITH DR BRAVO BACTPHILIPPEAN [...] elevated D- dimer - will refer to Pressure Tank Operator and floor worker transfer bay for follow up - pt is to [...] times daily and start neck exercises daily. Egdirqym-tomcqt-qkhsefv and phenergan injections today in the office
--- OUTSIDE RECORDS SUMMARY | 2018-02-25 16:03 | XMS REPORT | CCD ---
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 Name Role Phone PP Unavailable CCM Unavailable Summary Purpose Interface Exchange Insurance Providers Payer name Policy type / Coverage type Covered republican ID Effective Begin Date Effective End Date [facility] Commercial Insurance [id number] Unknown Unknown [employer] Commercial Insurance [id number] Unknown Unknown Family history Runs in the [...] Currently employed 06/15/[address]: [id number] Never smoker 06/15/2016 Alcohol history Unknown occasionally [...] 03/09/2017 Unknown Pelvic and perineal pain ICD-9: [id number] ICD-10: R10.2 Active 03/05/2017 Unknown Low back [...] 03/09/2017 Active Pelvic and perineal pain ICD-9: [id number] ICD-10: R10.2 03/05/2017 Active Low back pain [...] hydrocodone 5 mg-acetaminophen 325 mg tablet RxNorm: 658858 1 Tablet(s) PO QID as needed 10/24/2017 No Stop Date Active omeprazole 20 mg capsule,delayed release RxNorm: 136508 1 Capsule(s) PO BID 09/06/2017 08/31/2018 Active hydrocodone 5 mg-acetaminophen 325 mg tablet RxNorm: 705336 1 Tablet(s) PO QID as needed 09/06/2017 10/23/2017 Inactive tizanidine 4 mg tablet RxNorm: 300995 1 Tablet(s) PO TID as needed 07/19/2017 11/15/2017 Active omeprazole 20 mg capsule,delayed release RxNorm: 209566 1 Capsule(s) PO daily 07/19/2017 09/05/2017 Inactive lisinopril 10 mg tablet RxNorm: 371864 1 Tablet(s) PO daily 02/201710/03/2017 Inactive hydrocodone 5 mg-acetaminophen 325 mg tablet RxNorm: 995294 1 Tablet(s) PO QID as needed 06/18/2017 09/05/2017 Inactive tizanidine 4 mg tablet RxNorm: 764484 1 Tablet(s) PO TID PRN TAKE 1 TABLET BY MOUTH THREE TIMES DAILY NEEDED 05/18/2017 06/26/2017 Inactive promethazine 25 mg/mL injection solution RxNorm: 869343 Milliliter(s) Inj 05/18/2017 05/18/2017 Inactive ketorolac 60 mg/2 mL intramuscular solution RxNorm: 329032 Milliliter(s) IM 05/18/2017 05/18/2017 Inactive hydrocodone 5 mg-acetaminophen 325 mg tablet RxNorm: 904843 1 Tablet(s) PO QID as needed 05/18/2017 06/17/2017 Inactive gabapentin 100 mg capsule RxNorm: 876189 TAKE 1 CAPSULE BY MOUTH THREE TIMES DAILY 04/23/2017 06/21/2017 Inactive hydrocodone 5 mg-acetaminophen 325 mg tablet RxNorm: 598303 1 Tablet(s) PO QID as needed 04/19/2017 05/17/2017 Inactive tizanidine 2 mg tablet RxNorm: 492556 TAKE 1 TABLET BY MOUTH THREE TIMES DAILY NEEDED 04/09/2017 05/17/2017 Inactive tizanidine 2 mg tablet RxNorm: 699952 1 Tablet(s) PO TID as needed 03/16/2017 03/25/2017 Inactive hydrocodone 5 mg-acetaminophen 325 mg tablet RxNorm: 010575 1 Tablet(s) PO QID as needed 03/16/2017 04/18/2017 Inactive Kenalog 40 mg/mL suspension for injection RxNorm: 0375847 1 Milliliter(s) Inj 03/05/2017 03/05/2017 Inactive Cipro 500 mg tablet RxNorm: 017495 1 Tablet(s) PO BID 201603/14/2017 Inactive Flagyl 500 mg tablet RxNorm: 490145 1 Tablet(s) PO TID 201603/14/2017 Inactive tizanidine 2 mg tablet RxNorm: 274841 1 Tablet(s) PO TID as needed 02/28/2017 03/09/2017 Inactive gabapentin 100 mg capsule RxNorm: 034141 1 Capsule(s) PO TID 04/22/2017 Inactive gabapentin 100 mg capsule RxNorm: 752195 1 Capsule(s) PO QHS 01/31/2017 Inactive cyclobenzaprine 5 mg tablet RxNorm: 691118 1-2 Tablet(s) PO TID as needed muscle spasms 01/11/2017 01/20/2017 Inactive Bactrim DS 800 mg-160 mg tablet RxNorm: 396044 1 Tablet(s) PO BID 11/03/2016 11/12/2016 Inactive hydrocodone 5 mg-acetaminophen 325 mg tablet RxNorm: 295268 1 Tablet(s) PO QID as needed 11/03/2016 03/15/2017 Inactive lisinopril 10 mg tablet RxNorm: 831573 1 Tablet(s) PO daily 12/02/2016 Inactive metronidazole 500 mg tablet RxNorm: 795375 1 Tablet(s) PO TID 10/30/2016 11/08/2016 Inactive metronidazole 500 mg tablet RxNorm: 329356 1 Tablet(s) PO TID 10/30/2016 10/29/2016 Inactive Zithromax Z-Nicolas 250 mg tablet RxNorm: 592193 1 Tablet(s) PO UD 10/24/2016 04/18/2017 Inactive Diflucan 150 mg tablet RxNorm: 665358 1 Tablet(s) PO daily 03/201711/06/2016 Inactive cyclobenzaprine 5 mg tablet RxNorm: 227753 1-2 Tablet(s) PO TID as needed muscle spasms 10/12/2016 10/21/2016 Inactive prednisone 20 mg tablet RxNorm: 586346 2 Tablet(s) PO daily 08/20/2016 Inactive Lamisil 250 mg tablet RxNorm: 680260 1 Tablet(s) PO daily If cleared after 1 week stop pill and use cream 08/16/20162015 Inactive cyclobenzaprine 5 mg tablet RxNorm: 028944 2 Tablet(s) PO TID as needed muscle spasms 08/16/2016 08/20/2016 Inactive Keflex 500 mg capsule RxNorm: 007125 1 Capsule(s) PO TID 201507/12/2016 Inactive mupirocin 2 % topical ointment RxNorm: 456374 1 Application TOP BID 07/06/2016 07/12/2016 Inactive Phenergan 25 mg tablet RxNorm: 487037 1 Tablet(s) PO TID as needed for nausea 06/19/2016 06/28/2016 Inactive hyoscyamine 0.125 mg sublingual tablet RxNorm: 4630551 1 Tablet(s) SL Q6 for pain 06/19/2016 06/18/2016 Inactive hyoscyamine 0.125 mg sublingual tablet RxNorm: 7134893 1 Tablet(s) SL Q6 for pain 06/19/2016 06/23/2016 Inactive Phenergan 25 mg tablet RxNorm: 740967 1 Tablet(s) PO TID as needed for nausea 06/19/2016 06/18/2016 Inactive Diflucan 150 mg tablet RxNorm: 846619 1 Tablet(s) PO daily 06/21/2016 Inactive amlodipine 5 mg tablet RxNorm: 153588 1 Tablet(s) PO QAM No Start Date Active lisinopril 40 mg tablet RxNorm: 716524 1 Tablet(s) PO QAM No Start Date Active Xarelto 20 mg tablet RxNorm: 7160811 1 Tablet(s) PO daily -Pt will start after she finishes 21 days of 15 mg BID No Start Date Active Maxzide-25mg 37.5 mg-25 mg tablet RxNorm: 67530 1 Tablet(s) PO QAM No Start Date Active Nexium 24HR 20 mg tablet,delayed release RxNorm: 8282780 1 Tablet(s) PO daily No Start Date 02/27/2017 Inactive aspirin 81 mg chewable tablet RxNorm: 654834 1 Tablet(s) PO daily No Start Date 02/27/2017 Inactive Medication Administered Medication Codes Instructions Start Date Status promethazine 25 mg/mL injection solution RxNorm: 346180 Milliliter 05/18/2017 No longer Active ketorolac 60 mg/2 mL intramuscular solution RxNorm: 625212 Milliliter 05/18/2017 No longer Active Kenalog 40 mg/mL suspension for injection RxNorm: 1302679 1Milliliter 03/05/2017 No longer Active Immunizations No [...] Pelvic and perineal pain ICD-10: R10.2 ICD-9: [id number] 03/09/2017 Sacroiliitis, not elsewhere classified ICD-10: M46.1 [...] Item Item Code Result Date Culture Urine [id number] URINE CULTURE SEE NOTES 03/08/2017 Urine Culture Ucult Complete Growth of aerobe sent to ref lab 03/07/2017 GC/CHL PRB [id number] Chl trach DNA Negative 10/25/2016 GC/CHL PRB [id number] GC PROBE Negative 10/25/2016 Wet Prep [id number] Yeast Vaginal None 10/24/2016 Wet Prep [id number] Trichomonas None 10/24/2016 Comp Metabolic Skr431 NA 136 mEq/L 06/16/2016 Comp Metabolic Chg919 K 4.3 mEq/L 06/16/2016 Comp Metabolic Hrs616 CL 103 mEq/L 06/16/2016 Comp Metabolic Tql934 CO2 26.0 mEq/L 06/16/2016 Comp Metabolic Whi311 ANION GAP 11 06/16/2016 Comp Metabolic Esj178 GLUCOSE 115 mg/dL 06/16/2016 Comp Metabolic Qwr518 Creat 0.7 mg/dL 06/16/2016 Comp Metabolic Jzy861 eGFR 106 ml/min/1.73m2 06/16/2016 Comp Metabolic Cuo516 BUN 11 mg/dL 06/16/2016 Comp Metabolic Mxn401 B/C Ratio 16.7 Ratio 06/16/2016 Comp Metabolic Aup126 CALCIUM 9.0 mg/dL 06/16/2016 Comp Metabolic Zzk572 ALK PHOS 89 U/L 06/16/2016 Comp Metabolic Xmo536 AST(SGOT) 14 U/L 06/16/2016 Comp Metabolic Eel078 ALT(SGPT) 20 U/L 06/16/2016 Comp Metabolic Bzo128 BILI T 0.5 mg/dL 06/16/2016 Comp Metabolic Izy844 ALBUMIN 3.6 g/dL 06/16/2016 Comp Metabolic Ars831 TPRO 5.9 g/dL 06/16/2016 Comp Metabolic Tuc022 GLOB 2.3 g/dL 06/16/2016 Comp Metabolic Mzf141 A/G Ratio 1.6 Ratio 06/16/2016 Comp Metabolic Imn583 Osmo 272 mOsmo 06/16/2016 Cbc With Differential [...] 80.3 fl 06/16/2016 Cbc With Differential Ord2 [place]% 8.1 % 06/16/2016 Cbc With Differential Ord2 [...] 3.38 K/ul 06/16/2016 Cbc With Differential Ord2 [place] ABS# 0.8 K/ul 06/16/2016 Cbc With Differential [...] affect 07/19/2017 None Full Exam - General 1995 Psychiatric appearance Overall: well-groomed, good eye contact [...] INJECTION CPT-4: J2550 05/18/2017 DRAIN/INJECT JOINT/BURSA CPT-4: 00556 03/05/2017 TRIAMCINOLONE ACET INJ NOS CPT-4: J3301 03/05/2017 Vital Signs Date Vital 10/04/2017 Blood Pressure 1: 120/80 Code : 8480-6 BMI: 39.9 Code : 92799-8 Heart Rate 1 : 73 bpm Height: 5'1" SpO2: 99% Weight: 211 lbs 07/19/2017 Blood Pressure 1: 180/110 Code: 8480-6 Blood Pressure 1: 172/100 Code: 8480-6 BMI: 41.9 Code: 37507-0 Heart Rate 1: 102 bpm Height: 5'1" SpO2: 99% Weight: 222 lbs 05/18/2017 Blood Pressure 1: 122/74 Code : 8480-6 BMI: 42.7 Code : 18753-4 Heart Rate 1 : 72 bpm Height: 5'1" SpO2: 99% Weight: 226 lbs 03/09/2017 Blood Pressure 1: 144/72 Code : 8480-6 BMI: 42.5 Code : 49578-0 Heart Rate 1 : 95 bpm Height: 5'1" SpO2: 98% Weight: 225 lbs 03/05/2017 BMI: 42.5 Code: 25598-6 Heart Rate 1: 90 bpm Height: 5'1" Weight: 225 lbs 02/28/2017 Blood Pressure 1: 138/90 Code : 8480-6 BMI: 42.5 Code : 47632-0 Heart Rate 1 : 79 bpm Height: 5'1" SpO2: 99% Weight: 225 lbs 01/17/2017 Blood Pressure 1: 138/74 Code : 8480-6 BMI: 44.0 Code : 86771-2 Heart Rate 1 : 74 bpm Height: 5'1" SpO2: 98% Weight: 233 lbs 01/11/2017 Blood Pressure 1: 152/90 Code : 8480-6 BMI: 42.1 Code : 09752-8 Heart Rate 1 : 83 bpm Height: 5'1" Weight: 223 lbs 11/03/2016 Blood Pressure 1: 146/80 Code : 8480-6 BMI: 42.3 Code : 79817-1 Heart Rate 1 : 89 bpm Height: 5'1" SpO2: 98% Weight: 224 lbs 10/24/2016 Blood Pressure 1: 166/88 Code : 8480-6 BMI: 42.3 Code : 34939-3 Heart Rate 1 : 92 bpm Height: 5'1" SpO2: 99% Weight: 224 lbs 08/16/2016 Blood Pressure 1: 138/80 Code : 8480-6 BMI: 41.9 Code : 56331-4 Heart Rate 1 : 77 bpm Height: 5'1" SpO2: 97% Weight: 222 lbs 07/06/2016 Blood Pressure 1: 128/86 Code : 8480-6 BMI: 41.6 Code : 41931-4 Heart Rate 1 : 101 bpm Height: 5'1" SpO2: 98% Temperature: 36.5 (C) / 97.7 (F) Weight: 220 lbs 06/15/2016 Blood Pressure 1: 138/76 Code : 8480-6 BMI: 41.6 Code : 06630-8 Heart Rate 1 : 99 bpm Height: [...] data Encounters Encounter Performer Location Codes Date EST. PATIENT, LEVEL III Diagnosis: Other pulmonary embolism without acute cor pulmonale[ICD10: I26.99] Reva Huggins MD, [facility] CPT-4: 79790 10/04/2017 11953 EST. PATIENT, LEVEL IV Diagnosis: Essential (primary) hypertension[ICD10: I10] Diagnosis: Other chest pain[ICD10: R07.89] Diagnosis: Other specified abnormal findings of blood chemistry[ICD10: R79.89] Reva Huggins MD, [facility] CPT-4: 21149 08/07/2017 32419 EST. PATIENT, LEVEL IV Diagnosis: Essential (primary) hypertension[ICD10: I10] Diagnosis: Gastro-esophageal reflux disease without esophagitis[ICD10: K21.9] Diagnosis: Cervicalgia[ICD10: M54.2] Diagnosis: Muscle spasm of back[ICD10: M62.830] Reva Huggins MD, [facility] CPT-4: 92247 07/19/2017 ([id number]) 03824 EST. PATIENT, LEVEL III Diagnosis: Cervicalgia[ICD10: M54.2] Diagnosis: Headache[ICD10: R51] Aleja Huggins MD, [facility] CPT-4: 48812 05/18/2017 35397 EST. PATIENT, LEVEL III Diagnosis: Left lower quadrant pain[ICD10: R10.32] Diagnosis: Pelvic and perineal pain[ICD10: R10.2] Reva Huggins MD, [facility] CPT-4: 94888 03/09/2017 46563 EST. PATIENT, LEVEL IV Diagnosis: Low back pain[ICD10: M54.5] Diagnosis: Sacroiliitis, not elsewhere classified[ICD10: M46.1] Diagnosis: Pelvic and perineal pain[ICD10: R10.2] Reva Huggins MD, [facility] CPT-4: 74504 03/05/2017 37334 EST. PATIENT, LEVEL III Diagnosis: Cervicalgia[ICD10: M54.2] Diagnosis: Other muscle spasm[ICD10: M62.838] Reva Huggins MD, [facility] CPT-4: 59377 02/28/2017 70619 EST. PATIENT, LEVEL III Diagnosis: Pain in left shoulder[ICD10: M25.512] Diagnosis: Other obesity due to excess calories[ICD10: E66.09] Reva Huggins MD, [facility] CPT-4: 12028 01/17/2017 52409 EST. PATIENT, LEVEL III Diagnosis: Pain in left shoulder[ICD10: M25.512] Diagnosis: Other obesity due to excess calories[ICD10: E66.09] Reva Huggins MD, [facility] CPT-4: 13123 01/11/2017 97700 EST. PATIENT, LEVEL III Diagnosis: Acute vulvitis[ICD10: N76.2] Reva Huggins MD, [facility] CPT-4 : 89403 11/03/2016 15259 EST. PATIENT, LEVEL III Diagnosis: Encounter for gynecological examination (general) (routine) without abnormal findings[ICD10: Z01.419] Diagnosis: Acute vaginitis[ICD10: N76.0] Diagnosis: Contact with and (suspected) exposure to infections with a predominantly sexual mode of transmission[ICD10: Z20.2] Reva Huggins MD, [facility] CPT-4: 92940 10/24/2016 76014 EST. PATIENT, LEVEL III Diagnosis: Pain in right shoulder[ICD10: M25.511] Reva Huggins MD, [facility] CPT-4: 25091 08/16/2016 69321 EST. PATIENT, LEVEL II Diagnosis: Cellulitis of abdominal wall[ICD10: L03.311] [facility] CPT-4: 20032 07/06/2016 ([id number]) OFFICE VISIT, NEW - LEVEL 4 Diagnosis: Right upper quadrant pain[ICD10: R10.11] Diagnosis: Other allergic rhinitis[ICD10: J30.89] Diagnosis: Gastro-esophageal reflux disease without esophagitis[ICD10: K21.9] [facility] CPT-4: 50750 06/15/2016 Plan of Care Planned Activity Notes Codes Status Date Appointment: Reva Godinez WPtel: [facility] (30 min) Complex 10/04/2017 Patient Education: Patient Medication Summary Completed 10/04/2017 Referral: Andrew Miller WPtel: 1 [facility] Referral Initiated 08/28/2017 Referral: External, Ordering Provider Referral Initiated 08/24/2017 Appointment: Reva Godinez WPtel: [address] [place], [place] [phone] (30 min) Complex 08/16/2017 Care Plan: Referral Order SNOMED-CT : [id number] Pending 08/13/2017 Care Plan: Referral Order SNOMED-CT : 689610676 Pending 08/13/2017 Appointment: Reva Godinez WPtel: [address] [place], [place] [phone] (30 min) Complex 08/07/2017 Patient Education: Patient Medication Summary Completed 08/07/2017 Appointment: Reva Godinez WPtel: [address] [place], [place] [phone] [place] (30 min) Complex 07/19/2017 Patient Education: Patient Medication Summary Completed 07/19/2017 Patient Education: Obesity Completed 07/19/2017 Patient Education: .Cervicalgia Neck Pain Completed 07/19/2017 Appointment: Aleja Vidal WPtel: [phone] [place] (30 min) Complex 05/18/2017 Patient Education: Patient Medication Summary Completed 05/18/2017 Appointment: Rev[facility] Godinez [facility]Ptel[facility] ([facility]) Complex 03/09/2017 Patient Education: Patient Medication Summary Completed 03/09/2017 Patient Education: Obesity Completed 03/09/2017 Appointment: Reva Godinez WPtel: [facility] (15 min) Moderate 03/05/2017 Patient Education: Patient Medication Summary Completed 03/05/2017 Patient Education: Obesity Completed 03/05/2017 Appointment: Reva Godinez WPtel: [facility] [place] (30 min) Complex 02/28/2017 Patient Education: Patient Medication Summary Completed 02/28/2017 Patient Education: Obesity Completed 02/28/2017 Patient Education: .Cervicalgia Neck Pain Completed 02/28/2017 Care Plan: BMI Above normal followup SELF-MGMT EDUC & TRAIN 1 PT Pending 2016 Referral: Rene Hawkins Referral Completed 01/25/2017 Patient Education: Patient Medication Summary Completed 01/17/2017 Patient Education: Obesity Completed 01/17/2017 Care Plan: Referral Order SNOMED-CT : [id number] Pending 01/17/2017 Care Plan: BMI Above normal followup SELF-MGMT EDUC & TRAIN 1 PT Pending 2016 Appointment: Reva Godinez WPtel: [facility] ([facility] min) Complex 01/11/2017 Patient Education: Patient Medication Summary Completed 01/11/2017 Patient Education: Obesity Completed 01/11/2017 Appointment: Reva Godinez WPtel: [facility] [place] (30 min) Complex 11/03/2016 Patient Education: Patient Medication Summary Completed 11/03/2016 Appointment: Reva Godinez WPtel: [facility] [place] (30 min) Complex 10/24/2016 Patient Education: Patient Medication Summary Completed 10/24/2016 Care Plan: C WET [place] Pending 10/24/2016 Care Plan: PAP Pending 10/24/2016 Care Plan: GC/CHL PRB Pending 10/24/2016 Appointment: Aleja Vidal WPtel: [phone] [phone] (15 min) Moderate 08/16/2016 Patient Education: Patient Medication Summary Completed 08/16/2016 Patient Education: Obesity Completed 08/16/2016 Appointment: Aleja Vidal WPtel: [phone] [phone] (10 min) Simple 07/06/2016 Patient Education: Patient Medication Summary Completed 07/06/2016 Referral: Lawrence Referral Initiated 06/22/2016 Patient Education: Patient Medication Summary Completed 06/15/2016 Care Plan: Referral Order SNOMED-CT : [id number] Pending 06/15/2016 Referral: Rene Hawkins Referral Completed [facility] Referral Initiated Referral: Lawrence Referral Initiated Referral: External, Ordering Provider Referral Initiated Instructions No Instructions
[2018-02-25] MEDS ORDERED: NS IV 1000 ML 1,000 ML IV ONE (16:11)
[2018-02-25 16:25] LABS: BASOPHILS # (AUTO) 0.1 10^3/uL (0.0-0.1); BASOPHILS % (AUTO) 0 % (0-10); EOSINOPHILS # (AUTO) 0.2 10^3/uL (0.0-0.3); EOSINOPHILS % (AUTO) 1 % (0-10); HEMATOCRIT 38 % (35-52); HEMOGLOBIN 12.6 G/DL (11.5-16.0); LYMPHOCYTES # (AUTO) 4.7 X 10^3 (1.0-4.0); LYMPHOCYTES % (AUTO) 33 % (12-44); MEAN CORPUSCULAR HEMOGLOBIN 25 PG (25-34); MEAN CORPUSCULAR HGB CONC 33 G/DL (32-36); MEAN CORPUSCULAR VOLUME 75 FL (80-99); MONOCYTES % (AUTO) 7 % (0-12); NEUTROPHILS # (AUTO) 8.2 X 10^3 (1.8-7.8); NEUTROPHILS % (AUTO) 58 % (42-75); PLATELET COUNT 401 10^3/uL (130-400); RED BLOOD COUNT 5.03 10^6/uL (4.35-5.85); RED CELL DISTRIBUTION WIDTH 16.8 % (10.0-14.5); WHITE BLOOD COUNT 14.2 10^3/uL (4.3-11.0)
--- NOTE | 2018-02-25 16:40 | ED Chest Pain ---
General Chief Complaint: Chest Pain Stated Complaint: CP Source: patient Exam Limitations: no limitations History of Present Illness Date Seen by Provider: Feb 25, 2018 Time Seen by Provider: 16:27 Initial Comments Here with acute onset of central chest pain approximately one hour prior to arrival that she states is heavy and pressure that is nonradiating and fairly significant. Associated with palpitations. States it feels like when she got her blood clot proximal 6 months ago. She has been off her blood thinner because she could not afford it. Denies nausea or vomiting. Denies weakness, fever, chills or sweating. Timing/Duration: 1 hour Severity/Quality: moderate, severe, pressure Location: central Radiation: no radiation Activities at Onset: none Prior CP/Workup: pulmonary embolism Modifying Factors: worse with exercise; improves with rest ASA po HEALTH INFORMATION TECHNOLOGIST: No NTG SL HEALTH INFORMATION TECHNOLOGIST: No Associated Symptoms: No abdominal pain, No back pain, No diaphoresis, No dizziness, No fatigue, No nausea/vomiting; shortness of breath; No weakness Allergies and Home Medications Allergies Coded Allergies: codeine (Verified Allergy, Unknown, NAUSEA, 06/23/16) Home Medications Esomeprazole Magnesium 40 Mg Cap, 40 MG PO BID, (Reported) Hyoscyamine Sulfate 0.125 Mg Tablet, 0.125 MG PO Q6H PRN for PAIN, (Reported) Oxycodone HCl/Acetaminophen 1 Each Tablet, 1 EACH PO Q4H PRN for ABDOMINAL PAIN Prescribed by: BARRERA VAZQUEZ on 06/28/16 1208 Promethazine HCl 25 Mg Tablet, 25 MG PO TID PRN for NAUSEA/VOMITING, (Reported) Patient Home Medication List Home Medication List Reviewed: Yes Review of Systems Constitutional: see HPI; No chills, No fever EENTM: No Symptoms Reported Respiratory: Denies Cough; Shortness of Air, Wheezing Cardiovascular: Chest Pain; Denies Edema; Palpitations Gastrointestinal: Denies Abdominal Pain, Denies Diarrhea, Denies Nausea Genitourinary: No Symptoms Reported Musculoskeletal: no symptoms reported Skin: no symptoms reported All Other Systems Reviewed Negative Unless Noted: Yes Past Iiwtbbi-Dfwnil-Autgiu Hx Past Med/Social Hx: Reviewed Nursing Past Med/Soc Hx Patient Social History Alcohol Use: Denies Use Alcohol Beverage of Choice: Other Recreational Drug Use: Yes Drug of Choice: MARIJUANA Smoking Status: Never a Smoker 2nd Hand Smoke Exposure: Yes Recent Foreign Travel: No Contact w/Someone Who Travel: No Recent Hopitalizations: No Immunizations Up To Date Tetanus Booster (TDap): Less than 5yrs Date of Influenza Vaccine: Jun 17, 2011 Seasonal Allergies Seasonal Allergies: Yes Past Medical History Surgeries: Yes (LIPOMA REMOVED, WISDOM TEETH, RIGHT CTR, ) Appendectomy, Gallbladder, Orthopedic, Tubal Ligation Respiratory: Yes Pulmonary Embolism Cardiac: Yes Deep Vein Thrombosis, Hypertension Neurological: Yes (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; SPASMS) Reproductive Disorders: No Genitourinary: No Gastrointestinal: Yes Gastroesophageal Reflux, Gall Bladder Disease Musculoskeletal: Yes (abnormal curvature of the spine due to muscle spasm) Spasms Endocrine: No HEENT: No Cancer: No Psychosocial: Yes Depression Integumentary: No Blood Disorders: No Family Medical History Reviewed Nursing Family Hx Physical Exam Vital Signs Capillary Refill : General Appearance: WD/WN, Anxious, Mild Distress HEENT: PERRL/EOMI, Pharynx Normal Neck: Non Tender, Supple Respiratory: Lungs Clear, Normal Breath Sounds Cardiovascular: No Murmur, Tachycardia Gastrointestinal: Non Tender, Soft Extremity: Normal Range of Motion, Non Tender Neurologic/Psychiatric: Alert, Oriented x3 Skin: Normal Color, Warm/Dry Progress/Results/Core Measures Results/Orders Lab Results Laboratory Tests Test 02/25/18 16:15 Range/Units White Blood Count 14.2 H 4.3-11.0 10^3/uL Red Blood Count 5.03 4.35-5.85 10^6/uL Hemoglobin 12.6 11.5-16.0 G/DL Hematocrit 38 35-52 % Mean Corpuscular Volume 75 L 80-99 FL Mean Corpuscular Hemoglobin 25 25-34 PG Mean Corpuscular Hemoglobin Concent 33 32-36 G/DL Red Cell Distribution Width 16.8 H 10.0-14.5 % Platelet Count 401 H 130-400 10^3/uL Mean Platelet Volume 9.0 7.4-10.4 FL Neutrophils (%) (Auto) 58 42-75 % Lymphocytes (%) (Auto) 33 12-44 % Monocytes (%) (Auto) 7 0-12 % Eosinophils (%) (Auto) 1 0-10 % Basophils (%) (Auto) 0 0-10 % Neutrophils # (Auto) 8.2 H 1.8-7.8 X 10^3 Lymphocytes # (Auto) 4.7 H 1.0-4.0 X 10^3 Monocytes # (Auto) 1.0 0.0-1.0 X 10^3 Eosinophils # (Auto) 0.2 0.0-0.3 10^3/uL Basophils # (Auto) 0.1 0.0-0.1 10^3/uL Neutrophils % (Manual) 62 % Lymphocytes % (Manual) 24 % Monocytes % (Manual) 5 % Eosinophils % (Manual) 0 % Basophils % (Manual) 0 % Band Neutrophils 0 % Reactive Lymphocytes 9 % Anisocytosis SLIGHT Microcytosis SLIGHT Prothrombin Time 13.0 12.2-14.7 SEC INR Comment 1.0 0.8-1.4 Activated Partial Thromboplast Time 26 24-35 SEC Sodium Level 140 135-145 MMOL/L Potassium Level 3.7 3.6-5.0 MMOL/L Chloride Level 107 98-107 MMOL/L Carbon Dioxide Level 21 21-32 MMOL/L Anion Gap 12 5-14 MMOL/L Blood Urea Nitrogen 12 7-18 MG/DL Creatinine 0.82 0.60-1.30 MG/DL Estimat Glomerular Filtration Rate > 60 BUN/Creatinine Ratio 15 Glucose Level 96 70-105 MG/DL Calcium Level 9.7 8.5-10.1 MG/DL Magnesium Level 1.7 L 1.8-2.4 MG/DL Total Bilirubin 0.3 0.1-1.0 MG/DL Aspartate Amino Transf (AST/SGOT) 14 5-34 U/L Alanine Aminotransferase (ALT/SGPT) 20 0-55 U/L Alkaline Phosphatase 103 40-136 U/L Troponin I < 0.30 <0.30 NG/ML Total Protein 7.0 6.4-8.2 GM/DL Albumin 4.1 3.2-4.5 GM/DL My Orders Orders - NICKIE SELLERS MD Saline Lock/Iv-Start (02/25/18 16:11) Ns Iv 1000 Ml (Sodium Chloride 0.9%) (02/25/18 16:11) Ekg Tracing (02/25/18 16:11) O2 (02/25/18 16:11) Monitor-Rhythm Ecg Trace Only (02/25/18 16:11) Cbc With Automated Diff (02/25/18 16:11) Comprehensive Metabolic Panel (02/25/18 16:11) Magnesium (02/25/18 16:11) Protime With Inr (02/25/18 16:11) Partial Thromboplastin Time (02/25/18 16:11) Troponin I (02/25/18 16:11) Chest 1 View, Ap/Pa Only (02/25/18 16:11) Ct Angio Chest W (02/25/18 16:11) Manual Differential (02/25/18 16:15) Aspirin Chewable Tablet (Baby Aspirin Ch (02/25/18 17:03) Medications Given in ED Current Medications Medications Dose Ordered Sig/Kalyan Route Start Time Stop Time Status Last Admin Dose Admin Sodium Chloride 1,000 ml @ 0 mls/hr Q0M ONCE IV 02/25/18 16:11 02/25/18 16:14 DC 02/25/18 17:38 0 MLS/HR Progress Progress Note : Progress Note Seen and evaluated. IV, labs, EKG and chest x-ray ordered. Normal saline 1 L bolus. Greatest concern would be pulmonary embolism and we will evaluate for that. CT angiogram of the chest ordered. Monitor patient. ASA 324 mg by mouth ordered. Monitor patient. 1729: CT angiogram and labs are negative as well as chest x-ray. Patient's heart rate responded without fluids but fluids were given and evaluated due to CT with contrast. Chest pain-free shortly after arrival. I did discuss the case with Dr. Huggins. Patient has been off anticoagulants for almost a month now. Given the negative CT angiogram, it is reasonable to hold that at this point but we will start her on full dose aspirin for another month and then decreased to a baby aspirin daily thereafter. She should follow-up with Dr. Huggins. I did discuss this with the patient and family and they agree. Pending fluids to be completed. 1835: Fluids complete and patient remains chest pain-free. Discharged home with return precautions. Patient verbalize understanding instructions and agreement with plan. Initial ECG Impression Date: Feb 25, 2018 Initial ECG Impression Time: 16:06 Initial ECG Rate: 110 Initial ECG Rhythm: S.Tach Comment Sinus rhythm with tachycardic rate. Normal axis. No evidence of ST elevation [place]. Q waves noted in lead 3 with T-wave inversions. T-wave inversions also noted in aVF. This represents change from previous of October 2017. Interpreted by me. Diagnostic Imaging Diagonstic Imaging: CT Plain Films/CT/US/NM/MRI: chest Comments NAME: ADAM DE OLIVEIRA [facility] REC#: [id number] PT STATUS: REG ER : 1980 PHYSICIAN: NICKIE SELLERS MD ADMIT DATE: 02/25/18/ER Draft Date of Exam:02/25/18 CT ANGIO CHEST W INDICATION: Chest pain, previous history of pulmonary emboli. TECHNIQUE: The CTA chest was obtained with IV contrast bolus. COMPARISON: There are no prior studies for comparison. FINDINGS: The pulmonary parenchymal vessels are well opacified with no CT evidence of pulmonary emboli. There is no pleural or pericardial fluid. The thoracic aorta shows no evidence of dissection or aneurysm. The great vessel origins appear unremarkable. There are no enlarged mediastinal or hilar nodes. There are no enlarged axillary nodes or chest wall lesions seen. The lung windows are unremarkable. The visualized portions of the upper abdomen demonstrate fatty infiltration of the liver but no focal lesion. IMPRESSION: No CT evidence of pulmonary emboli or aortic dissection. No acute infiltrate or pleural fluid. Incidental note is made of fatty infiltration of the liver. Dictated on workstation # [id number] Dict: 02/25/18 1656 Trans: 02/25/18 1700 [id number] Interpreted by: CARLOS TROY MD Electronically signed by: Diagonstic Imaging: Xray Plain Films/CT/US/NM/MRI: chest Comments NAME: ADAM DE OLIVEIRA [facility] REC#: [id number] PT STATUS: REG ER : 1980 PHYSICIAN: NICKIE SELLERS MD ADMIT DATE: 02/25/18/ER Signed Date of Exam: 02/25/18 CHEST 1 VIEW, AP/PA ONLY INDICATION: Chest pain, shortness of breath, history of pulmonary emboli. COMPARISON STUDY: Chest from 10/02/2017. FINDINGS: A portable view of the chest demonstrates the lungs to be clear. The heart, mediastinum and pulmonary vascularity and the visualized bony thorax are normal. IMPRESSION: Normal chest. Dictated by: Dictated on workstation # [id number] Dict: 02/25/18 1636 Trans: 02/25/18 163 Interpreted by: ZACKARY HUMPHREY MD Electronically signed by: ZACKARY HUMPHREY MD 02/25/18 163 Departure Impression Primary Impression: Chest pain Qualified Codes: R07.9 - Chest pain, unspecified Additional Impression: Palpitations Disposition: 01 HOME, SELF-CARE Condition: Improved Departure-Patient Inst. Decision time for Depature: 18:40 Referrals: ARMIDA HUGGINS MD (PCP) Primary Care Physician CHRISTIANO DOWNING APRN (Family) Primary Care Physician Patient Instructions: Chest Pain (DC), Palpitations (DC) Add. Discharge Instructions: All discharge instructions reviewed with patient and/or family. Voiced understanding. You should take a full dose aspirin (325 mg) daily for 1 month and then decreased to 1 baby aspirin (81 mg) daily thereafter. Follow-up with Dr. Huggins this week for recheck and further evaluation. Return for worse pain, fever, vomiting, weakness, breathing problems or other concerns as needed. As you're taking aspirin and this can upset her stomach, you can take over-the- counter famotidine (Pepcid) or Zantac (ranitidine) to decrease stomach acid. Return for worsening, fever, vomiting, weakness, breathing problems or other concerns as needed. Copy Copies To 1: ARMIDA HUGGINS MD, TIMOTHY D MD Feb 25, 2018 16:40
[2018-02-25 16:46] LABS: BAND NEUTROPHILS 0 %; BASOPHILS % (MANUAL) 0 %; EOSINOPHILS % (MANUAL) 0 %; LYMPHOCYTES % (MANUAL) 24 %; MONOCYTES % (MANUAL) 5 %; NEUTROPHILS % (MANUAL) 62 %
[2018-02-25 16:47] LABS: ANISOCYTOSIS SLIGHT; MICROCYTOSIS SLIGHT; REACTIVE LYMPHOCYTES 9 %
[2018-02-25 16:50] LABS: ALANINE AMINOTRANSFERASE 20 U/L (0-55); ALBUMIN 4.1 GM/DL (3.2-4.5); ALKALINE PHOSPHATASE 103 U/L (40-136); BILIRUBIN,TOTAL 0.3 MG/DL (0.1-1.0); BUN/CREATININE RATIO 15; CALCIUM 9.7 MG/DL (8.5-10.1); CARBON DIOXIDE 21 MMOL/L (21-32); CHLORIDE 107 MMOL/L (98-107); CREATININE SERUM 0.82 MG/DL (0.60-1.30); GFR ESTIMATED > 60; GLUCOSE 96 MG/DL (70-105); MAGNESIUM 1.7 MG/DL (1.8-2.4); POTASSIUM 3.7 MMOL/L (3.6-5.0); SODIUM 140 MMOL/L (135-145)
--- NOTE | 2018-02-25 17:01 | Diagnostic Imaging Report ---
INDICATION: Chest pain, previous history of pulmonary emboli. TECHNIQUE: The CTA chest was obtained with IV contrast bolus. COMPARISON: There are no prior studies for comparison. FINDINGS: The pulmonary parenchymal vessels are well opacified with no CT evidence of pulmonary emboli. There is no pleural or pericardial fluid. The thoracic aorta shows no evidence of dissection or aneurysm. The great vessel origins appear unremarkable. There are no enlarged mediastinal or hilar nodes. There are no enlarged axillary nodes or chest wall lesions seen. The lung windows are unremarkable. The visualized portions of the upper abdomen demonstrate fatty infiltration of the liver but no focal lesion. IMPRESSION: No CT evidence of pulmonary emboli or aortic dissection. No acute infiltrate or pleural fluid. Incidental note is made of fatty infiltration of the liver. Dictated by: Dictated on workstation # [id number]
[2018-02-25] MEDS ORDERED: ASPIRIN 81 MG CHEW (CHILDREN'S ASA) PO STA (17:03)
[2018-02-25 18:54] VITALS: BP 134/90
== END 2018-02-25 18:54 | disposition home or self-care (01) ==
LOC: EDUNIT# 15:50 → ER 15:52
DX: R07.89 Other chest pain (principal); R00.2 Palpitations; I10 Essential (primary) hypertension; K21.9 Gastro-esophageal reflux disease without esophagitis; F32.9 Major depressive disorder, single episode, unspecified; Z77.22 Contact with and (suspected) exposure to environmental tobacco smoke (acute) (chronic); Z90.49 Acquired absence of other specified parts of digestive tract; Z98.51 Tubal ligation status; Z86.711 Personal history of pulmonary embolism; Z86.718 Personal history of other venous thrombosis and embolism; Z88.5 Allergy status to narcotic agent
CPT/HCPCS: 36415; 71045; 71275; 80053; 83735; 84484; 85007; 85027; 85610; 85730; 93005; 93041; 96360

== ENCOUNTER 2018-05-21 14:25 | Outpatient (CLI) | payer BC ==
[~2018-05-21 14:25] MED LIST changes: -OXYC-197 PO; +OXYC1TAB87 PO
== END 2018-05-21 14:40 | disposition home or self-care (01) ==
LOC: SLEEP 14:25
PROVIDERS: ATTEND Nurse Practitioner Family
DX: G47.33 Obstructive sleep apnea (adult) (pediatric) (principal)

== ENCOUNTER 2018-07-01 07:14 | Emergency (ER) | payer BC ==
[~2018-07-01] VITALS: Ht 154.9 cm; Wt 102.2 kg
--- OUTSIDE RECORDS SUMMARY | 2018-07-01 07:22 | XMS REPORT | CCD ---
Author Author Reva Godinez Organization [facility] Address [address] [place] [address] Phone Care Team Providers Care Data Modeler Name Role Phone PP Unavailable CCM Unavailable Summary Purpose Interface Exchange Insurance Providers Payer name Policy type / Coverage type Covered alliance party ID Effective Begin Date Effective End Date Blue Cross Blue [facility] Blue Cross/Blue Shield [id number] Unknown Family history Runs in the family [...] Currently employed 06/15/[address]: 939608159 Never smoker 06/15/2016 Alcohol history Unknown occasionally drinks alcohol 06/15/2016 Allergies, Adverse Reactions, Alerts Substance Reaction Codes Entered Date Inactivated Date Status CODEINE RxNorm: 2670 06/15/2016 No Inactive Date Active Past Medical History Illness Codes Condition Status Onset Date Resolved Date Hyperglycemia, unspecified ICD-9: 790.29 ICD-10: R73.9 Active 05/07/2018 Unknown 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.61 ICD-10: Z79.01 Active 11/05/2017 Unknown Other pulmonary embolism without acute cor pulmonale ICD-9: 415.19 ICD-10: I26.99 Active 10/04/2017 Unknown Other specified anemias ICD-9: 285.8 ICD-10: D64.89 Active 11/05/2017 Unknown Pulmonary Embolus Unknown Active 10/04/2017 Unknown Essential (primary) hypertension ICD-9: [...] 03/09/2017 Unknown Pelvic and perineal pain ICD-9: [id number] ICD-10: R10.2 Active 03/05/2017 Unknown Low back [...] Problems Condition Codes Effective Dates Condition Status Hyperglycemia, unspecified ICD-9: 790.29 ICD-10: R73.9 05/07/2018 Active 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.61 ICD-10: Z79.01 11/05/2017 Active Other pulmonary embolism without acute cor pulmonale ICD-9: 415.19 ICD-10: I26.99 10/04/2017 Active Other specified anemias ICD-9: 285.8 ICD-10: D64.89 11/05/2017 Active Pulmonary Embolus Unknown 10/04/2017 Active Essential (primary) hypertension ICD-9: 401.1 [...] 03/09/2017 Active Pelvic and perineal pain ICD-9: [id number] ICD-10: R10.2 03/05/2017 Active Low back pain [...] hydrocodone 5 mg-acetaminophen 325 mg tablet RxNorm: 821695 1 Tablet(s) PO QID as needed 05/07/2018 No Stop Date Active Toprol XL 25 mg tablet,extended release RxNorm: 051118 1 Tablet(s) PO daily 05/07/2018 06/05/2018 Active omeprazole 20 mg capsule,delayed release RxNorm: 338585 1 Capsule(s) PO BID 05/07/2018 05/01/2019 Active Diflucan 150 mg tablet RxNorm: 361280 1 Tablet(s) PO daily 05/13/2018 Active tizanidine 4 mg tablet RxNorm: 542022 Tablet(s) 1 TABLET(S) PO TID NEEDED 05/07/2018 07/05/2018 Active tizanidine 2 mg tablet RxNorm: 426733 1 Tablet(s) PO TID as needed 04/30/2018 04/30/2018 Inactive hydrocodone 5 mg-acetaminophen 325 mg tablet RxNorm: 559002 1 Tablet(s) PO QID as needed 03/07/2018 05/06/2018 Inactive tizanidine 4 mg tablet RxNorm: 850378 1 TABLET(S) PO TID NEEDED 02/21/2018 04/21/2018 Inactive Xarelto 20 mg tablet RxNorm: 5400298 1 Tablet(s) PO daily 12/2601/24/2018 Inactive hydrocodone 5 mg-acetaminophen 325 mg tablet RxNorm: 600632 1 Tablet(s) PO QID as needed 12/26/2017 03/06/2018 Inactive tizanidine 4 mg tablet RxNorm: 928705 1 TABLET(S) PO TID NEEDED 11/29/2017 01/27/2018 Inactive hydrocodone 5 mg-acetaminophen 325 mg tablet RxNorm: 820444 1 Tablet(s) PO QID as needed 10/24/2017 12/25/2017 Inactive hydrocodone 5 mg-acetaminophen 325 mg tablet RxNorm: 529093 1 Tablet(s) PO QID as needed 09/06/2017 10/23/2017 Inactive omeprazole 20 mg capsule,delayed release RxNorm: 039062 1 Capsule(s) PO BID 09/06/2017 05/06/2018 Inactive omeprazole 20 mg capsule,delayed release RxNorm: 880921 1 Capsule(s) PO daily 07/19/2017 09/05/2017 Inactive tizanidine 4 mg tablet RxNorm: 601804 1 Tablet(s) PO TID as needed 07/19/2017 11/15/2017 Inactive lisinopril 10 mg tablet RxNorm: 656123 1 Tablet(s) PO daily 02/201710/03/2017 Inactive hydrocodone 5 mg-acetaminophen 325 mg tablet RxNorm: 668792 1 Tablet(s) PO QID as needed 06/18/2017 09/05/2017 Inactive tizanidine 4 mg tablet RxNorm: 740789 1 Tablet(s) PO TID PRN TAKE 1 TABLET BY MOUTH THREE TIMES DAILY NEEDED 05/18/2017 06/26/2017 Inactive promethazine 25 mg/mL injection solution RxNorm: 907633 Milliliter(s) Inj 05/18/2017 05/18/2017 Inactive ketorolac 60 mg/2 mL intramuscular solution RxNorm: 252905 Milliliter(s) IM 05/18/2017 05/18/2017 Inactive hydrocodone 5 mg-acetaminophen 325 mg tablet RxNorm: 696078 1 Tablet(s) PO QID as needed 05/18/2017 06/17/2017 Inactive gabapentin 100 mg capsule RxNorm: 729021 TAKE 1 CAPSULE BY MOUTH THREE TIMES DAILY 04/23/2017 06/21/2017 Inactive hydrocodone 5 mg-acetaminophen 325 mg tablet RxNorm: 282959 1 Tablet(s) PO QID as needed 04/19/2017 05/17/2017 Inactive tizanidine 2 mg tablet RxNorm: 982860 TAKE 1 TABLET BY MOUTH THREE TIMES DAILY NEEDED 04/09/2017 05/17/2017 Inactive hydrocodone 5 mg-acetaminophen 325 mg tablet RxNorm: 503408 1 Tablet(s) PO QID as needed 03/16/2017 04/18/2017 Inactive tizanidine 2 mg tablet RxNorm: 096296 1 Tablet(s) PO TID as needed 03/16/2017 03/25/2017 Inactive Kenalog 40 mg/mL suspension for injection RxNorm: 6620279 1 Milliliter(s) Inj 03/05/2017 03/05/2017 Inactive Cipro 500 mg tablet RxNorm: 725170 1 Tablet(s) PO BID 201603/14/2017 Inactive Flagyl 500 mg tablet RxNorm: 150807 1 Tablet(s) PO TID 201603/14/2017 Inactive tizanidine 2 mg tablet RxNorm: 785274 1 Tablet(s) PO TID as needed 02/28/2017 03/09/2017 Inactive gabapentin 100 mg capsule RxNorm: 297225 1 Capsule(s) PO TID 04/22/2017 Inactive gabapentin 100 mg capsule RxNorm: 592877 1 Capsule(s) PO QHS 01/31/2017 Inactive cyclobenzaprine 5 mg tablet RxNorm: 503513 1-2 Tablet(s) PO TID as needed muscle spasms 01/11/2017 01/20/2017 Inactive Bactrim DS 800 mg-160 mg tablet RxNorm: 305568 1 Tablet(s) PO BID 11/03/2016 11/12/2016 Inactive hydrocodone 5 mg-acetaminophen 325 mg tablet RxNorm: 963580 1 Tablet(s) PO QID as needed 11/03/2016 03/15/2017 Inactive lisinopril 10 mg tablet RxNorm: 864979 1 Tablet(s) PO daily 12/02/2016 Inactive metronidazole 500 mg tablet RxNorm: 081278 1 Tablet(s) PO TID 10/30/2016 11/08/2016 Inactive metronidazole 500 mg tablet RxNorm: 554833 1 Tablet(s) PO TID 10/30/2016 10/29/2016 Inactive Zithromax Z-Nicolas 250 mg tablet RxNorm: 175635 1 Tablet(s) PO UD 10/24/2016 04/18/2017 Inactive Diflucan 150 mg tablet RxNorm: 229326 1 Tablet(s) PO daily 03/201711/06/2016 Inactive cyclobenzaprine 5 mg tablet RxNorm: 503237 1-2 Tablet(s) PO TID as needed muscle spasms 10/12/2016 10/21/2016 Inactive prednisone 20 mg tablet RxNorm: 964414 2 Tablet(s) PO daily 08/20/2016 Inactive Lamisil 250 mg tablet RxNorm: 908975 1 Tablet(s) PO daily If cleared after 1 week stop pill and use cream 08/16/20162015 Inactive cyclobenzaprine 5 mg tablet RxNorm: 073507 2 Tablet(s) PO TID as needed muscle spasms 08/16/2016 08/20/2016 Inactive Keflex 500 mg capsule RxNorm: 108432 1 Capsule(s) PO TID 201507/12/2016 Inactive mupirocin 2 % topical ointment RxNorm: 419677 1 Application TOP BID 07/06/2016 07/12/2016 Inactive Phenergan 25 mg tablet RxNorm: 990866 1 Tablet(s) PO TID as needed for nausea 06/19/2016 06/28/2016 Inactive hyoscyamine 0.125 mg sublingual tablet RxNorm: 3005415 1 Tablet(s) SL Q6 for pain 06/19/2016 06/18/2016 Inactive hyoscyamine 0.125 mg sublingual tablet RxNorm: 7560718 1 Tablet(s) SL Q6 for pain 06/19/2016 06/23/2016 Inactive Phenergan 25 mg tablet RxNorm: 233920 1 Tablet(s) PO TID as needed for nausea 06/19/2016 06/18/2016 Inactive Diflucan 150 mg tablet RxNorm: 807900 1 Tablet(s) PO daily 06/21/2016 Inactive amlodipine 5 mg tablet RxNorm: 198783 1 Tablet(s) PO QAM No Start Date Active lisinopril 40 mg tablet RxNorm: 784229 1 Tablet(s) PO QAM No Start Date Active Maxzide-25mg 37.5 mg-25 mg tablet RxNorm: 93998 1 Tablet(s) PO QAM No Start Date Active Nexium 24HR 20 mg tablet,delayed release RxNorm: 4710125 1 Tablet(s) PO daily No Start Date 02/27/2017 Inactive Xarelto 20 mg tablet RxNorm: 6635238 1 Tablet(s) PO daily -Pt will start after she finishes 21 days of 15 mg BID No Start Date 12/25/2017 Inactive aspirin 81 mg chewable tablet RxNorm: 454530 1 Tablet(s) PO daily No Start Date 02/27/2017 Inactive Medication Administered Medication Codes Instructions Start Date Status promethazine 25 mg/mL injection solution RxNorm: 212517 Milliliter 05/18/2017 No longer Active ketorolac 60 mg/2 mL intramuscular solution RxNorm: 882168 Milliliter 05/18/2017 No longer Active Kenalog 40 mg/mL suspension for injection RxNorm: 9151106 1Milliliter 03/05/2017 No longer Active Immunizations No Immunization data Assessments Condition Codes Effective Dates Other pulmonary embolism without acute cor pulmonale ICD-10 : I26.99 ICD-9: 415.19 11/05/2017 [facility] (current) use of anticoagulants ICD-10: Z79.01 ICD-9: V58.61 11/05/2017 Other specified anemias ICD-10: D64.89 ICD-9: 285.8 11/05/2017 Other specified abnormal findings of blood chemistry [...] Pelvic and perineal pain ICD-10: R10.2 ICD-9: TEJ9915 03/09/2017 Sacroiliitis, not elsewhere classified ICD-10: M46.1 [...] Visit Effective Dates Notes Hospital Follow Up 11/05/2017 Hospital Follow Up 10/04/2017 hypertension 08/07/2017 back pain 07/19/2017 medication follow up 05/18/2017 abdominal pain 03/09/2017 back pain 03/05/2017 neck pain 02/28/2017 shoulder pain 01/17/2017 shoulder pain 01/11/2017 skin lesion 11/03/2016 vaginal discharge 10/24/2016 shoulder pain 08/16/2016 cellulitis 07/06/2016 abdominal pain 06/15/2016 Results Observation Observation Code Item Item Code Result Date Culture Urine [id number] URINE CULTURE SEE NOTES 03/08/2017 Urine Culture Ucult Complete Growth of aerobe sent to ref lab 03/07/2017 GC/CHL PRB [id number] Chl trach DNA Negative 10/25/2016 GC/CHL PRB [id number] GC PROBE Negative 10/25/2016 Wet Prep [id number] Yeast Vaginal None 10/24/2016 Wet Prep [id number] Trichomonas None 10/24/2016 Comp Metabolic Alm112 NA 136 mEq/L 06/16/2016 Comp Metabolic Jaf652 K 4.3 mEq/L 06/16/2016 Comp Metabolic Ibn749 CL 103 mEq/L 06/16/2016 Comp Metabolic Znw496 CO2 26.0 mEq/L 06/16/2016 Comp Metabolic Qwd133 ANION GAP 11 06/16/2016 Comp Metabolic Vqx228 GLUCOSE 115 mg/dL 06/16/2016 Comp Metabolic Sec239 Creat 0.7 mg/dL 06/16/2016 Comp Metabolic Hyu018 eGFR 106 ml/min/1.73m2 06/16/2016 Comp Metabolic Yau392 BUN 11 mg/dL 06/16/2016 Comp Metabolic Aft631 B/C Ratio 16.7 Ratio 06/16/2016 Comp Metabolic Boz764 CALCIUM 9.0 mg/dL 06/16/2016 Comp Metabolic Ygk190 ALK PHOS 89 U/L 06/16/2016 Comp Metabolic Pmq737 AST(SGOT) 14 U/L 06/16/2016 Comp Metabolic Ahx314 ALT(SGPT) 20 U/L 06/16/2016 Comp Metabolic Inl753 BILI T 0.5 mg/dL 06/16/2016 Comp Metabolic Trp281 ALBUMIN 3.6 g/dL 06/16/2016 Comp Metabolic Blt182 TPRO 5.9 g/dL 06/16/2016 Comp Metabolic Jcv956 GLOB 2.3 g/dL 06/16/2016 Comp Metabolic Oof857 A/G Ratio 1.6 Ratio 06/16/2016 Comp Metabolic Lxk578 Osmo 272 mOsmo 06/16/2016 Cbc With Differential [...] 80.3 fl 06/16/2016 Cbc With Differential Ord2 Braxton% 8.1 % 06/16/2016 Cbc With Differential Ord2 [...] 3.38 K/ul 06/16/2016 Cbc With Differential Ord2 Braxton ABS# 0.8 K/ul 06/16/2016 Cbc With Differential [...] of Systems System Result Effective Dates Constitutional recent illness 11/05/2017 Constitutional No chills 11/05/2017 Constitutional No diaphoresis 11/05/2017 Constitutional No fever 11/05/2017 Eyes No eye erythema 11/05/2017 Ears/Nose/Throat/Neck No nasal allergies 11/05/2017 Ears/Nose/Throat/Neck No nasal discharge 11/05/2017 Cardiovascular No chest pain/pressure Respiratory No cough 11/05/2017 Respiratory No chest congestion 2017 Gastrointestinal No abdominal pain 2017 Gastrointestinal No constipation 2017 Gastrointestinal diarrhea 11/05/2017 Gastrointestinal No vomiting 11/05/2017 Gastrointestinal No nausea 11/05/2017 Gastrointestinal No melena 11/05/2017 Gastrointestinal No hematochezia 2017 Neurologic No alteration of consciousness 11/05/2017 Neurologic No mental status change 2017 Constitutional No recent illness 2017 Constitutional No [...] 1994 Constitutional general appearance Overall: well developed 11/05/2017 None Full Exam - General 1994 Constitutional general appearance Overall: in no acute distress 11/05/2017 None Full Exam - General 1994 Constitutional general appearance Overall: well nourished 11/05/2017 None Full Exam - General 1994 Eyes conjunctiva /eyelids Overall: conjunctiva clear 11/05/2017 None Full Exam - General 1994 Eyes conjunctiva /eyelids Overall: cornea clear 11/05/2017 None Full Exam - General 1994 Eyes conjunctiva /eyelids Overall: eyelids normal 11/05/2017 None Full Exam - General 1994 Eyes pupils and irises Overall: pupils equal, round, reactive to light and accomodation 11/05/2017 None Full Exam - General 1994 Ears/Nose/Throat oral cavity/pharynx/larynx Overall: oral mucosa clear 11/05/2017 None Full Exam - General 1994 Ears/Nose/Throat lips/teeth/gingiva Overall: benign lips 11/05/2017 None Full Exam - General 1994 Respiratory respiratory effort/rhythm Overall: no retractions 11/05/2017 None Full Exam - General 1994 Respiratory respiratory effort/rhythm Overall: normal rate 11/05/2017 None Full Exam - General 1994 Respiratory auscultation Overall: breath sounds clear bilaterally 11/05/2017 None Full Exam - General 1994 Cardiovascular auscultation of heart Overall: regular rate 11/05/2017 None Full Exam - General 1994 Cardiovascular auscultation of heart Overall: normal heart sounds 11/05/2017 None Full Exam - General 1994 Abdomen abdominal exam Overall: normal bowel sounds 11/05/2017 None Full Exam - General 1994 Abdomen abdominal exam Overall: no tenderness 11/05/2017 None Full Exam - General 1994 Musculoskeletal head and neck Overall: head atraumatic 11/05/2017 None Full Exam - General 1994 Musculoskeletal gait and station Overall: normal station 11/05/2017 None Full Exam - General 1994 Musculoskeletal gait and station Overall: normal gait 11/05/2017 None Full Exam - General 1994 Neurologic cranial nerves Overall: crainial nerves 2 - 12 grossly intact 11/05/2017 None Full Exam - General 1994 Psychiatric orientation/consciousness Overall: oriented to person, place and time 11/05/2017 None Full Exam - General 1994 Psychiatric mood and affect Overall: normal mood and affect 11/05/2017 None Full Exam - General 1994 Psychiatric appearance Overall: well-groomed, good eye contact 11/05/2017 None Full Exam - General 1994 Constitutional [...] INJECTION CPT-4: J2550 05/18/2017 DRAIN/INJECT JOINT/BURSA CPT-4: 98710 03/05/2017 TRIAMCINOLONE ACET INJ NOS CPT-4: J3301 03/05/2017 Vital Signs Date Vital 11/05/2017 Blood Pressure 1: 132/74 Code : 8480-6 BMI: 40.4 Code : 98185-8 Heart Rate 1 : 85 bpm Height: 5'1" SpO2: 98% Weight: 214 lbs 10/04/2017 Blood Pressure 1: 120/80 Code : 8480-6 BMI: 39.9 Code : 06493-5 Heart Rate 1 : 73 bpm Height: 5'1" SpO2: 99% Weight: 211 lbs 07/19/2017 Blood Pressure 1: 180/110 Code: 8480-6 Blood Pressure 1: 172/100 Code: 8480-6 BMI: 41.9 Code: 81315-8 Heart Rate 1: 102 bpm Height: 5'1" SpO2: 99% Weight: 222 lbs 05/18/2017 Blood Pressure 1: 122/74 Code : 8480-6 BMI: 42.7 Code : 53680-3 Heart Rate 1 : 72 bpm Height: 5'1" SpO2: 99% Weight: 226 lbs 03/09/2017 Blood Pressure 1: 144/72 Code : 8480-6 BMI: 42.5 Code : 89573-5 Heart Rate 1 : 95 bpm Height: 5'1" SpO2: 98% Weight: 225 lbs 03/05/2017 BMI: 42.5 Code: 31565-1 Heart Rate 1: 90 bpm Height: 5'1" Weight: 225 lbs 02/28/2017 Blood Pressure 1: 138/90 Code : 8480-6 BMI: 42.5 Code : 22185-8 Heart Rate 1 : 79 bpm Height: 5'1" SpO2: 99% Weight: 225 lbs 01/17/2017 Blood Pressure 1: 138/74 Code : 8480-6 BMI: 44.0 Code : 58245-1 Heart Rate 1 : 74 bpm Height: 5'1" SpO2: 98% Weight: 233 lbs 01/11/2017 Blood Pressure 1: 152/90 Code : 8480-6 BMI: 42.1 Code : 63751-4 Heart Rate 1 : 83 bpm Height: 5'1" Weight: 223 lbs 11/03/2016 Blood Pressure 1: 146/80 Code : 8480-6 BMI: 42.3 Code : 85499-4 Heart Rate 1 : 89 bpm Height: 5'1" SpO2: 98% Weight: 224 lbs 10/24/2016 Blood Pressure 1: 166/88 Code : 8480-6 BMI: 42.3 Code : 30944-9 Heart Rate 1 : 92 bpm Height: 5'1" SpO2: 99% Weight: 224 lbs 08/16/2016 Blood Pressure 1: 138/80 Code : 8480-6 BMI: 41.9 Code : 05887-7 Heart Rate 1 : 77 bpm Height: 5'1" SpO2: 97% Weight: 222 lbs 07/06/2016 Blood Pressure 1: 128/86 Code : 8480-6 BMI: 41.6 Code : 48604-4 Heart Rate 1 : 101 bpm Height: 5'1" SpO2: 98% Temperature: 36.5 (C) / 97.7 (F) Weight: 220 lbs 06/15/2016 Blood Pressure 1: 138/76 Code : 8480-6 BMI: 41.6 Code : 33559-6 Heart Rate 1 : 99 bpm Height: 5'1" SpO2: 99% Weight: 220 lbs Functional Status No Functional Status data History of Present Illness Symptom Name Status Result Effective Date Notes Hospital Follow Up _ Other: bleeding 11/05/2017 None Hospital Follow Up Quality constant 11/05/2017 None Hospital Follow Up Onset and Resolution sudden in onset 11/05/2017 None Hospital Follow Up Onset of Symptom 12 weeks ago 11/05/2017 None Hospital Follow Up _ Other: pulmonary embolism [...] pulmonary embolism without acute cor pulmonale[ICD10: I26.99] Diagnosis: Other specified anemias[ICD10: D64.89] 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 PATIENT, LEVEL III Diagnosis: Other pulmonary embolism without acute cor pulmonale[ICD10: I26.99] Reva Huggins MD, [facility] CPT-4: 76252 10/04/2017 11634 EST. PATIENT, LEVEL IV Diagnosis: Essential (primary) hypertension[ICD10: I10] Diagnosis: Other chest pain[ICD10: R07.89] Diagnosis: Other specified abnormal findings of blood chemistry[ICD10: R79.89] Reva Huggins MD, [facility] CPT-4: 33112 08/07/2017 45242 EST. PATIENT, LEVEL IV Diagnosis: Essential (primary) hypertension[ICD10: I10] Diagnosis: Gastro-esophageal reflux disease without esophagitis[ICD10: K21.9] Diagnosis: Cervicalgia[ICD10: M54.2] Diagnosis: Muscle spasm of back[ICD10: M62.830] Reva Huggins MD, [facility] CPT-4: 16570 07/19/2017 ([id number]) 41747 EST. PATIENT, LEVEL III Diagnosis: Cervicalgia[ICD10: M54.2] Diagnosis: Headache[ICD10: R51] Aleja Huggins MD, [facility] CPT-4: 98153 05/18/2017 79698 EST. PATIENT, LEVEL III Diagnosis: Left lower quadrant pain[ICD10: R10.32] Diagnosis: Pelvic and perineal pain[ICD10: R10.2] Reva Huggins MD, [facility] CPT-4: 07930 03/09/2017 70114 EST. PATIENT, LEVEL IV Diagnosis: Low back pain[ICD10: M54.5] Diagnosis: Sacroiliitis, not elsewhere classified[ICD10: M46.1] Diagnosis: Pelvic and perineal pain[ICD10: R10.2] Reva Huggins MD, [facility] CPT-4: 17415 03/05/2017 62279 EST. PATIENT, LEVEL III Diagnosis: Cervicalgia[ICD10: M54.2] Diagnosis: Other muscle spasm[ICD10: M62.838] Reva Huggins MD, [facility] CPT-4: 31450 02/28/2017 15453 EST. PATIENT, LEVEL III Diagnosis: Pain in left shoulder[ICD10: M25.512] Diagnosis: Other obesity due to excess calories[ICD10: E66.09] Reva Huggins MD, [facility] CPT-4: 78372 01/17/2017 38519 EST. PATIENT, LEVEL III Diagnosis: Pain in left shoulder[ICD10: M25.512] Diagnosis: Other obesity due to excess calories[ICD10: E66.09] Reva Huggins MD, [facility] CPT-4: 13292 01/11/2017 73192 EST. PATIENT, LEVEL III Diagnosis: Acute vulvitis[ICD10: N76.2] Reva Huggins MD, [facility] CPT-4 : 53223 11/03/2016 96707 EST. PATIENT, LEVEL III Diagnosis: Encounter for gynecological examination (general) (routine) without abnormal findings[ICD10: Z01.419] Diagnosis: Acute vaginitis[ICD10: N76.0] Diagnosis: Contact with and (suspected) exposure to infections with a predominantly sexual mode of transmission[ICD10: Z20.2] Reva Huggins MD, [facility] CPT-4: 59304 10/24/2016 92220 EST. PATIENT, LEVEL III Diagnosis: Pain in right shoulder[ICD10: M25.511] Reva Huggins MD, [facility] CPT-4: 65334 08/16/2016 17631 EST. PATIENT, LEVEL II Diagnosis: Cellulitis of abdominal wall[ICD10: L03.311] [facility] CPT-4: 95770 07/06/2016 (67523) OFFICE VISIT, NEW - LEVEL 4 Diagnosis: Right upper quadrant pain[ICD10: R10.11] Diagnosis: Other allergic rhinitis[ICD10: J30.89] Diagnosis: Gastro-esophageal reflux disease without esophagitis[ICD10: K21.9] [facility] CPT-4: 46670 06/15/2016 Plan of Care Planned Activity Notes Codes Status Date Visit Plan: PE, Chronic Anticoagulant use - Defer to cardiology - Pt has been counseled about the anticoagulant, need for serial monitoring, and need for the pt to alert the physician as to any new bruising, or acute bleeding. Therapeutic goal for INR is between 2.0 and 3.5. Anemia, uterine fibroids - defer to OB - pt is to update clinic with any changes to the current treatment plan. Pt is to notify clinic of any acute changes, questions, or concerns. 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 10/04/2017 Appointment: Reva Godinez WPtel: [address] [place], [place] [id number] (30 min) Complex 10/04/2017 Patient Education: Patient Medication Summary Completed 10/04/2017 Ref[facility]: [facility] Referral Initiated 08/28/2017 Referral: External, Ordering Provider Referral Initiated 08/24/2017 Appointment: Reva Godinez WPtel: [address] [place], [place] [id number] (30 min) Complex 08/16/2017 Care Plan: Referral Order SNOMED-CT : 947301689 Pending 08/13/2017 Care Plan: Referral Order SNOMED-CT : 579258769 Pending 08/13/2017 Visit Plan: ER follow up - chest pain, hypertension, elevated D-dimer - will refer to Human Capital Manager and bilingual hr generalist for follow up - pt is to notify clinic if symptoms return, or with any acute changes, questions , or concerns. 08/07/2017 Appointment: Reva Godinez WPtel: [phone] [facility] (30 min) Complex 08/07/2017 Patient Education: Patient [...] improving. 07/19/2017 [facility] [phone] [facility] ([facility] 07/19/2017 Patient Education: Patient Medication Summary Completed 07/19/2017 Patient Education: Obesity Completed 07/19/2017 Patient Education: .Cervicalgia Neck Pain Completed 07/19/2017 Visit Plan: Neck Pain- pt to start with aspercreme or biofreeze to neck three times daily and start neck exercises daily. Headache- nausea-toradol and phenergan injections today in the office 05/18/2017 Appointment: [facility]idal [facility] [phone] [phone] [place] (30 min) Complex 05/18/2017 Patient Education: Patient Medication Summary Completed 05/18/2017 Visit Plan: Ongoing LLQ and Suprapubic pain - Pt is to continue RX as prescribed - will order pelvic US and treat as indicated - pt is to notify clinic if symptoms do not improve, if they worsen, or with any changes or concerns. 03/09/2017 Appointment: [facility] [phone] [facility] [place] (30 min) Complex 03/09/2017 Patient [...] or concerns. 03/05/2017 Appointment: [facility] [phone] [facility] [place] (15 min) Moderate 03/05/2017 Patient Education: [...] not improve. 02/28/2017 Appointment: [facility]el[facility] [phone] [facility] [place] (30 min) Complex 02/28/2017 Patient [...] 01/17/2017 Care Plan: Referral Order SNOMED-CT : [id number] Pending 01/17/2017 Care Plan: BMI Above normal [...] weight check. 01/11/2017 Appointment: Reva Godinez WPtel: [facility] ([facility] min) Complex 01/11/2017 Patient Education: Patient Medication Summary Completed 01/11/2017 Patient Education: Obesity Completed 01/11/2017 Visit Plan: Vulvitis - continue with oral antibiotics as previously directed, return to clinic as previously directed, call for acute change in symptoms, worsening redness, warmth, discharge. 11/03/2016 Appointment: Reva Godinez WPtel: [facility] [id number] ([facility] 11/03/2016 Patient Education: [...] or prn. 10/24/2016 Appointment: Reva Godinez [facility]Ptel: [phone] [facility] [place] ([facility] [place]) Complex 10/24/2016 Patient Education: Patient Medication Summary Completed 10/24/2016 Care Plan: C WET LA Pending 10/24/2016 Care Plan: PAP Pending 10/24/2016 Care Plan: GC/CHL PRB Pending 10/24/2016 Visit Plan: Right shoulder pain - muscle spasms in the right shoulder and along the thoracic spine - The pt is to use prn antiinflammatories to manage acute pain. The patient is to call the office if the pain is worsening or does not improve. 08/16/2016 Appointment: Aleja Vidal [facility]Ptel: [phone] [id number] [place] (15 min) Moderate 08/16/2016 Patient Education: Patient [...] plan. 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 . Right shoulder pain - muscle spasms in the right shoulder and along the thoracic spine - The pt is to use prn antiinflammatories to manage acute pain. The patient is to call the office if the pain is worsening or does not improve. . PE, Chronic Anticoagulant use - Defer to cardiology - Pt has been counseled about the anticoagulant, need for serial monitoring, and need for the pt to alert the physician as to any new bruising, or acute bleeding. Therapeutic goal for INR is between 2.0 and 3.5. Anemia, uterine fibroids - defer to OB - pt is to update clinic with any changes to the current treatment plan. Pt is to notify clinic of any acute changes, questions, or concerns. . Left shoulder pain - The pt [...] of plan. FOLLOW UP APPT WITH DR TAYLOR IYERAN OINTMENT TO WOUND KEFLEX IF SYMPTOMS WORSEN [...] elevated D- dimer - will refer to Human Capital Manager and bilingual hr generalist for follow up - pt is to [...] times daily and start neck exercises daily. Szxrgaib-uqqsun-dzotsrp and phenergan injections today in the office
--- NOTE | 2018-07-01 07:28 | ED Chest Pain ---
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 NO RADIATION OF PAIN + SWEATS + SHORTNESS OF BREATH + LIGHTHEADEDNESS FEELS LIKE HEART IS BEATING HARD, BUT NOT IRREGULAR OR FAST NO CHANGE IN CHRONIC LEG SWELLING PT HAS HISTORY OF BILATERAL LOWER LEG SUPERFICIAL THROMBOPHLEBITIS PT HAD P.E. 09/2017, THEN HAD ANOTHER BLOOD CLOT THAT WENT TO HER HEART 04/2018 PT HAS BEEN ON COUMADIN, BUT HAS BEEN HAVING DOSE ADJUSTED BECAUSE HER BLOOD HAS BEEN TOO THIN--NOW TAKING 1/2 OF 5 MG TABLET 4 TIMES A WEEK. LAST DOSE WAS 2 NIGHTS AGO. PT HAD TRIP TO [place] 1 1/2 WEEKS AGO. HAD STRESS TEST IN NOVEMBER--NORMAL PER PT HAS BEEN SEEING DR. MCKEON FOR CARDIOLOGY--LAST VISIT IN THE LAST 2-3 MONTHS. PCP: DR. 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: CASSIE CARRILLO Allergies and Home Medications Allergies Coded Allergies: codeine (Verified Allergy, Unknown, NAUSEA, 06/23/16) morphine (Verified Allergy, Unknown, 07/01/18) Home Medications Esomeprazole Magnesium 40 Mg Cap, 40 MG PO BID, (Reported) Hyoscyamine Sulfate 0.125 Mg Tablet, 0.125 MG PO Q6H PRN for PAIN, (Reported) Oxycodone HCl/Acetaminophen 1 Each Tablet, 1 EACH PO Q4H PRN for ABDOMINAL PAIN Prescribed by: BARRERA VAZQUEZ on 06/28/16 1208 Promethazine HCl 25 Mg Tablet, 25 MG PO TID PRN for NAUSEA/VOMITING, (Reported) Patient Home Medication List Home Medication List Reviewed: Yes Review of Systems Review of Systems Constitutional: dizziness EENTM: No Symptoms Reported Respiratory: See HPI, Shortness of Air, SOA With Exertion, SOA at Rest Cardiovascular: See HPI, Chest Pain; Denies Edema; Lightheadedness, Palpitations; Denies Syncope Gastrointestinal: No Symptoms Reported Genitourinary: No Symptoms Reported Musculoskeletal: no symptoms reported Skin: no symptoms reported Psychiatric/Neurological: Anxiety Endocrine: No Symptoms Reported Hematologic/Lymphatic: Blood Clots Past Bmbptdr-Zpjbtz-Sirhcj Hx Patient Social History Alcohol Use: Occasionally Uses Alcohol Beverage of Choice: Other Recreational Drug Use: Yes (THC ON REGULAR BASIS) Drug of Choice: MARIJUANA Smoking Status: Never a Smoker 2nd Hand Smoke Exposure: Yes Recent Hopitalizations: No Immunizations Up To Date Tetanus Booster (TDap): Less than 5yrs Date of Influenza Vaccine: Jun 17, 2011 Seasonal Allergies Seasonal Allergies: Yes Past Medical History Surgeries: Yes (LIPOMA REMOVED FROM LEFT THIGH, WISDOM TEETH, RIGHT CARPAL TUNNEL; HYST/OVARIES INTACT, ) Appendectomy, Gallbladder, Hysterectomy, Orthopedic, Tubal Ligation Respiratory: Yes Pulmonary Embolism Cardiac: Yes Deep Vein Thrombosis, Hypertension Neurological: Yes (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; SPASMS) Reproductive Disorders: No 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 09/2017; BLOOD CLOT TO HEART 04/2018. ) Adverse Reaction/Blood Tranf: No (never had reaction) Physical Exam Vital Signs Capillary Refill : Height, Weight, BMI Height: 5'1.00" Weight: 210lbs. 5.0oz. 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) Neurologic/Psychiatric: Alert, Oriented x3, No Motor/Sensory Deficits, 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 Norm as Tested Skin: Normal Color, Warm/Dry Progress/Results/Core Measures Results/Orders Lab Results Laboratory Tests Test 07/01/18 07:25 Range/Units White Blood Count 12.7 H 4.3-11.0 10^3/uL Red Blood Count 4.90 4.35-5.85 10^6/uL Hemoglobin 12.7 11.5-16.0 G/DL Hematocrit 37 35-52 % Mean Corpuscular Volume 76 L 80-99 FL Mean Corpuscular Hemoglobin 26 25-34 PG Mean Corpuscular Hemoglobin Concent 34 32-36 G/DL Red Cell Distribution Width 18.4 H 10.0-14.5 % Platelet Count 443 H 130-400 10^3/uL Mean Platelet Volume 9.1 7.4-10.4 FL Neutrophils (%) (Auto) 47 42-75 % Lymphocytes (%) (Auto) 41 12-44 % Monocytes (%) (Auto) 8 0-12 % Eosinophils (%) (Auto) 3 0-10 % Basophils (%) (Auto) 0 0-10 % Neutrophils # (Auto) 6.0 1.8-7.8 X 10^3 Lymphocytes # (Auto) 5.3 H 1.0-4.0 X 10^3 Monocytes # (Auto) 1.0 0.0-1.0 X 10^3 Eosinophils # (Auto) 0.4 H 0.0-0.3 10^3/uL Basophils # (Auto) 0.0 0.0-0.1 10^3/uL Prothrombin Time 13.0 12.2-14.7 SEC INR Comment 1.0 0.8-1.4 Activated Partial Thromboplast Time 28 24-35 SEC Sodium Level 141 135-145 MMOL/L Potassium Level 3.5 L 3.6-5.0 MMOL/L Chloride Level 109 H 98-107 MMOL/L Carbon Dioxide Level 17 L 21-32 MMOL/L Anion Gap 15 H 5-14 MMOL/L Blood Urea Nitrogen 11 7-18 MG/DL Creatinine 0.82 0.60-1.30 MG/DL Estimat Glomerular Filtration Rate > 60 BUN/Creatinine Ratio 13 Glucose Level 131 H 70-105 MG/DL Calcium Level 9.5 8.5-10.1 MG/DL Corrected Calcium 9.5 8.5-10.1 MG/DL Magnesium Level 1.9 1.8-2.4 MG/DL Total Bilirubin 0.3 0.1-1.0 MG/DL Aspartate Amino Transf (AST/SGOT) 18 5-34 U/L Alanine Aminotransferase (ALT/SGPT) 24 0-55 U/L Alkaline Phosphatase 97 40-136 U/L Total Creatine Kinase 70 29-168 U/L Creatine Kinase MB 0.5 <6.6 NG/ML Myoglobin 22.5 10.0-92.0 NG/ML Troponin I < 0.30 <0.30 NG/ML B-Type Natriuretic Peptide 21.9 <100.0 PG/ML Total Protein 6.9 6.4-8.2 GM/DL Albumin 4.0 3.2-4.5 GM/DL Amylase Level 39 25-125 U/L Lipase 28 8-78 U/L My Orders Orders - ASTER FARRIS DO Cbc With Automated Diff (07/01/18:) Magnesium (07/01/18:) Chest 1 View, Ap/Pa Only (07/01/18:) Ekg Tracing (07/01/18:) Cardiac Profile 1 (07/01/18:) Comprehensive Metabolic Panel (07/01/18:) Myoglobin Serum (07/01/18:) Protime With Inr (07/01/18:) Partial Thromboplastin Time (07/01/18:) O2 (07/01/18:) Monitor-Rhythm Ecg Trace Only (07/01/18:) Aspirin Chewable Tablet (Baby Aspirin Ch (07/01/18 07:30) Nitroglycerin 0.4 Mg Btl 25's (Nitrostat (07/01/18:30) Saline Lock/Iv-Start (07/01/18:) Creatine Kinase (07/01/18:) Creatine Kinase Mb (07/01/18:) Lipase (07/01/18:) Amylase (07/01/18:) BNP (07/01/18:) Ct Angio Chest W (07/01/18:) Iohexol Injection (Omnipaque 350 Mg/Ml 1 (07/01/18 07:45) Ns (Ivpb) (Sodium Chloride 0.9%) (07/01/18 07:45) Pharmacy Communication (Pharmacy Communi (07/01/18 07:39) Ondansetron Injection (Zofran Injectio (07/01/18 08:15) Ondansetron Injection (Zofran Injectio (07/01/18 08:00) Iv Push Bottom Turning Lathe Turner Ed (07/01/18 ) Medications Given in ED Vital Signs/I&O Progress Progress Note : Progress Note PAIN FREE WITH NTG X 2 UNEVENTFUL ER STAY Initial ECG Impression Date: Jul 01, 2018 Initial ECG Impression Time: 07:17 Initial ECG Rate: 103 Initial ECG Rhythm: Normal Sinus Diagnostic Imaging Comments CXR--NO ACUTE PROCESS CT CHEST ANGIOGRAM--NO PE OR ACUTE PROCESS PER RADIOLOGIST REPORTS @ [address]: [address] Departure Communication (Admissions) 0837--SPOKE WITH DR. GUERRERO, SHE ADVISES TO CALL DR. MCKEON. 0848--CALLED CASSIE, PAGING DR. MCKEON 0850--SPOKE WITH DR. MCKEON, ACCEPTS PT FOR ADMIT. Impression Primary Impression: Chest pain Disposition: 02 XFER SHT-TRM HOSP Condition: Improved Departure-Patient Inst. Referrals: ARMIDA GUERRERO MD (PCP/Family) Primary Care Physician ASTER FARRIS DO Jul 01, 2018 07:28
[2018-07-01] MEDS ORDERED: NITROGLYCERIN 0.4 MG SL TABS BTL 25'S SL PRN (07:30)
[2018-07-01] MEDS ORDERED: ASPIRIN 81 MG CHEW (CHILDREN'S ASA) PO ONE (07:30)
[2018-07-01 07:34] LABS: BASOPHILS % (AUTO) 0 % (0-10); EOSINOPHILS # (AUTO) 0.4 10^3/uL (0.0-0.3); EOSINOPHILS % (AUTO) 3 % (0-10); HEMATOCRIT 37 % (35-52); HEMOGLOBIN 12.7 G/DL (11.5-16.0); LYMPHOCYTES # (AUTO) 5.3 X 10^3 (1.0-4.0); LYMPHOCYTES % (AUTO) 41 % (12-44); MEAN CORPUSCULAR HEMOGLOBIN 26 PG (25-34); MEAN CORPUSCULAR HGB CONC 34 G/DL (32-36); MEAN CORPUSCULAR VOLUME 76 FL (80-99); MEAN PLATELET VOLUME 9.1 FL (7.4-10.4); MONOCYTES % (AUTO) 8 % (0-12); NEUTROPHILS % (AUTO) 47 % (42-75); PLATELET COUNT 443 10^3/uL (130-400); RED CELL DISTRIBUTION WIDTH 18.4 % (10.0-14.5); WHITE BLOOD COUNT 12.7 10^3/uL (4.3-11.0)
[2018-07-01] MEDS ORDERED: IOHEXOL 350 MG/ML 150 ML (OMNIPAQUE 350) VIAL IV ONE (07:45)
[2018-07-01] MEDS ORDERED: NS 250 ML (IVPB) BAG IV ONE (07:45)
[2018-07-01 07:53] LABS: ALANINE AMINOTRANSFERASE 24 U/L (0-55); ALKALINE PHOSPHATASE 97 U/L (40-136); AMYLASE 39 U/L (25-125); BILIRUBIN,TOTAL 0.3 MG/DL (0.1-1.0); BUN/CREATININE RATIO 13; CALCIUM 9.5 MG/DL (8.5-10.1); CARBON DIOXIDE 17 MMOL/L (21-32); CHLORIDE 109 MMOL/L (98-107); CREATINE KINASE 70 U/L (29-168); CREATININE SERUM 0.82 MG/DL (0.60-1.30); GFR ESTIMATED > 60; GLUCOSE 131 MG/DL (70-105); LIPASE 28 U/L (8-78); MAGNESIUM 1.9 MG/DL (1.8-2.4); POTASSIUM 3.5 MMOL/L (3.6-5.0); SODIUM 141 MMOL/L (135-145); TOTAL PROTEIN 6.9 GM/DL (6.4-8.2)
[2018-07-01] MEDS ORDERED: ONDANSETRON 4 MG/2 ML (SDV) Z0FRAN ONE (08:00)
[2018-07-01 08:01] LABS: CREATINE KINASE MB 0.5 NG/ML (<6.6); MYOGLOBIN SERUM 22.5 NG/ML (10.0-92.0)
--- NOTE | 2018-07-01 08:01 | Diagnostic Imaging Report ---
INDICATION: Chest pain COMPARISON: 02/25/2018 FINDINGS: Frontal and lateral views of the chest demonstrate normal heart size and pulmonary vascularity. The lungs are clear. There are no signs of infiltrate, pleural effusions or pneumothoraces. The visualized osseous structures show no acute abnormalities. IMPRESSION: 1. No acute process. No signs of infiltrates, effusions or pneumothoraces. Dictated by: Dictated on workstation # [id number]
[2018-07-01] MEDS ORDERED: ONDANSETRON 4 MG/2 ML (SDV) Z0FRAN IVP ONE (08:15)
--- NOTE | 2018-07-01 08:18 | Diagnostic Imaging Report ---
PROCEDURE: CT angiography of the chest with contrast. TECHNIQUE: Multiple contiguous axial images were obtained through the chest after uneventful bolus administration of intravenous contrast. 2D reconstructed CTA MIP acquisitions were also performed. INDICATION: Chest pain. Shortness of air. COMPARISON: 02/25/2018 FINDINGS: There is no evidence of acute pulmonary embolus to the first subsegmental division of the pulmonary arteries. Thoracic aorta is normal in course and caliber. Heart size is within normal limits. There is no large pericardial effusion. No pathologically enlarged or morphologically abnormal adenopathy is seen within the mediastinum, marixa, nor axilla. Evaluation of the lung windows demonstrates no focal consolidation, pleural effusion, nor pneumothorax. No suspicious pulmonary nodules or masses are identified. Bony structures show no acute abnormalities. No lytic or blastic bony lesions are seen. Included portions of the upper abdomen are unremarkable. IMPRESSION: 1. No CT evidence of acute pulmonary embolus. 2. No other acute cardiopulmonary process. Dictated by: Dictated on workstation # [id number]
[2018-07-01 10:18] VITALS: BP 122/83
== END 2018-07-01 10:20 | disposition short-term general hospital (02) ==
LOC: EDUNIT# 07:14 → ER 07:15
DX: R07.9 Chest pain, unspecified (principal); I10 Essential (primary) hypertension; K21.9 Gastro-esophageal reflux disease without esophagitis; F32.9 Major depressive disorder, single episode, unspecified; F12.10 Cannabis abuse, uncomplicated; F17.210 Nicotine dependence, cigarettes, uncomplicated; Z98.51 Tubal ligation status; Z87.448 Personal history of other diseases of urinary system; Z86.711 Personal history of pulmonary embolism; Z86.718 Personal history of other venous thrombosis and embolism; Z90.89 Acquired absence of other organs; Z88.5 Allergy status to narcotic agent; Z79.01 Long term (current) use of anticoagulants
CPT/HCPCS: 36415; 71045; 71275; 80053; 82150; 82550; 82553; 83690; 83735; 83874; 83880; 84484; 85025; 85610; 85730; 93005; 93041; 96374

== ENCOUNTER 2018-07-19 06:52 | Outpatient (CLI) | payer BC ==
[~2018-07-19] VITALS: Ht 154.9 cm; Wt 102.2 kg
[2018-07-23] MEDS ORDERED: AMLO5TAB7 PO (16:07)
[2018-07-23] MEDS ORDERED: PANT40TA3 PO (16:07)
[2018-07-23] MEDS ORDERED: HYDR-3816 PO (16:07)
[2018-07-23] MEDS ORDERED: TIZA4CAP8 PO (16:07)
[2018-07-23] MEDS ORDERED: TRIA1CAP4 PO (16:07)
[2018-07-23] MEDS ORDERED: RIVA20TA PO (16:07)
[2018-07-23] MEDS ORDERED: METO-387 PO (16:07)
[2018-07-23] MEDS ORDERED: CETI10TA17 PO (16:07)
== END 2018-07-23 16:12 | disposition home or self-care (01) ==
LOC: PREOP 06:52
PROVIDERS: ATTEND Surgery
DX: Z01.818 Encounter for other preprocedural examination (principal)

== ENCOUNTER → 2018-07-24 | Day surgery (SDC) | payer BC ==
[~2018-07-24] VITALS: Ht 154.9 cm; Wt 102.2 kg
[~2018-07-24] MED LIST changes: +AMLO5TAB7 PO; +CETI10TA17 PO; +HURRICAINE EXT TUBE (BENZOCAINE) XX PRN; +HYDR-3816 PO; +LACTATED RINGERS 1,000 ML IV ONE; +LACTATED RINGERS 1,000 ML IV STA; +METO-387 PO; +MIDAZOLAM 5 MG/5 ML (VERSED) VIAL ONE; +PANT40TA3 PO; +RIVA20TA PO; +TIZA4CAP8 PO; +TRIA1CAP4 PO; +proPOfol 200 MG/20 ML (DIPRIVAN) VIAL IV ONE
[2018-07-24 08:12] VITALS: BP 127/82
--- NOTE | 2018-07-24 08:46 | Progress Note-Pre Operative ---
Pre-Operative Progress Note H&P Reviewed The H&P was reviewed, patient examined and no changes noted. Time Seen by Provider: 08:43 Date H&P Reviewed: Jul 24, 2018 Time H&P Reviewed: 08:44 Pre-Operative Diagnosis: Chronic Gastritis TASHA BARKLEY DO Jul 24, 2018 08:46
--- NOTE | 2018-07-24 09:09 | Progress Note-Post Operative ---
Post-Operative Progess Note Surgeon (s)/Supervisor Adult Education (s) Surgeon TASHA BARKLEY DO Supervisor Adult Education: none Pre-Operative Diagnosis Chronic Gastritis, Chest pain Post-Operative Diagnosis Chonic Gastritis Bile Reflux ?? Barretts's Esophagus Gastric Polyp ?? small Hiatal hernia Chest pain Procedure & Operative Findings Date of Procedure 07/24/18 Procedure Performed/Findings EGD with polyp removal EGD with biopsy Anesthesia Type IV sedation by OUTSOLE TACKER Estimated Blood Loss Estimated blood loss (mL): scant Specimens/Packing Specimens Removed Antral bx Fundal polyp and bx GE jxn bx TASHA BARKLEY DO Jul 24, 2018 09:09
--- NOTE | 2018-07-24 09:10 | Endoscopy Discharge Instruct ---
Endo Procedure/Findings Findings 1.: Gastritis 2.: Polyp 3.: Beard's Esophagus 4.: Hiatal Hernia Discharge Instructions - Activity: You might feel a little sleepy until tomorrow. This is due to the medicine you received to relax you. Until tomorrow, you should: NOT drive a car, operate machinery or power tools. NOT drink any alcoholic beverages. NOT make any important decisions or sign importortant papers. Do not return to work until tomorrow, unless otherwise instructed. Resume previous activities tomorrow. Diet: Start by taking liquids. If you tolerate liquids, advance to solid food. make appointment for one week Notify Physician - If you experience excessive bleeding, unusual abdominal pain, fever, or chest pain, contact your doctor immediately. Follow-Up: - I have received and understand the above instructions and will call my doctor if I have any further questions. Patient Signature Date Nurse Signature Other (Relationship) TASHA BARKLEY DO Jul 24, 2018 09:10
[2018-07-24 09:20] VITALS: BP 106/63
[2018-07-24 09:50] VITALS: BP 106/63
[2018-07-24 10:16] VITALS: BP 106/63
--- NOTE | 2018-07-24 11:55 | Anesthesia-General Post-Op ---
MAC Patient Condition Mental Status/LOC: Same as Preop Cardiovascular: Satisfactory Nausea/Vomiting: Absent Respiratory: Satisfactory Pain: Controlled Complications: Absent Post Op Complications Complications None Follow Up Care/Instructions Patient Instructions None needed. Anesthesiology Discharge Order Discharge Order Patient is doing well, no complaints, stable vital signs, no apparent adverse anesthesia problems. No complications reported per nursing. JONES NORMAN CRNA Jul 24, 2018 11:55
--- NOTE | 2018-07-24 11:59 | OPERATIVE REPORT ---
DATE OF SERVICE: 07/24/2018 PREOPERATIVE DIAGNOSES: 1. Chest pain. 2. Chronic gastritis. 3. Possible small hiatal hernia. POSTOPERATIVE DIAGNOSES: 1. Chronic gastritis. 2. Bile reflux. 3. Questionable Beard's. 4. Gastric polyp. 5. Chest pain. 6. Possible small hiatal hernia. PROCEDURES: 1. EGD with polyp removal. 2. EGD with biopsy. SURGEON: Main Bro DO DOLLY OPERATOR: None. ANESTHESIA: IV sedation by the MEDICAL ASSISTANT INSTRUCTOR. SPECIMENS: One biopsy from the antrum, one biopsy from the fundus, which removed a polyp at the same time and then the third was a biopsy from the GE junction. BLOOD LOSS: Scant. FLUIDS: Per anesthesia. POSTOPERATIVE CONDITION: Stable. INDICATION FOR PROCEDURE: The patient is a 38-year-old female, who has been having some chest pain. A full cardiac workup was negative for the heart being the cause of the chest pain and she had some heartburn symptoms, chronic gastritis and needed an EGD. FINDINGS: The patient had some inflammation throughout the stomach. The duodenum looked fine. Biopsy was done at the antrum. She had a little bit of creeping up of the GE junction and she had some polyps. PROCEDURE NOTE: After informed consent was obtained, the patient was brought to the endoscopy suite, placed in the bed in left lateral decubitus position. She was administered IV sedation by the MEDICAL ASSISTANT INSTRUCTOR, who then monitored her vitals the entire time, heart rate, blood pressure, pulse ox and the scope was inserted down the mouth through the esophagus and into the stomach. Upon entering the stomach, I noted some inflammation and redness, I took a picture of this, pushed into the duodenum. First and second portion of the duodenum looked normal. Pictures were taken. Pulled back into the antrum, did a biopsy of the antrum, some what looked like a polyp down and towards the antrum and then looked back in the fundus and on the probable lesser curvature saw a polyp and some more redness, able to remove the polyp and get a good port biopsy of the fundus in one bite. This was removed and sent to pathology. Retroflexed, I saw what looked like a possible small hiatal hernia. No ulcers. No other obvious pathology. Pulled the scope back up into the GE junction. There was some creeping up of the GE junction and Z-line, looked like possible early Beard's esophagus, did a biopsy here, got a good biopsy of the esophageal and gastric portion, then suctioned out this air in the stomach and then pulled the scope up the esophagus. Rest of the esophagus looked fine and then out the mouth. The patient tolerated the procedure and recovered in the endoscopy suite. Job ID: [id number] DocumentID: [id number] Dictated Date: 07/24/2018 09:06:47 Fuels Engineer Date: 07/24/2018 11:58:40 Dictated By: MAIN BRO DO
== END | disposition home or self-care (01) ==
LOC: ENDO 07:28
PROVIDERS: ATTEND Surgery
DX: K31.7 Polyp of stomach and duodenum (principal); K29.50 Unspecified chronic gastritis without bleeding; K21.9 Gastro-esophageal reflux disease without esophagitis; R07.9 Chest pain, unspecified; R79.1 Abnormal coagulation profile; Z86.718 Personal history of other venous thrombosis and embolism; Z80.3 Family history of malignant neoplasm of breast; Z79.01 Long term (current) use of anticoagulants; I10 Essential (primary) hypertension; I20.9 Angina pectoris, unspecified; Z86.711 Personal history of pulmonary embolism
CPT/HCPCS: 88305

== ENCOUNTER 2018-08-07 14:50 | Outpatient (RCR) | payer BC, OTHER ==
[2018-07-10 14:45] LABS: BASOPHILS # (AUTO) 0.1 10^3/uL (0.0-0.1); BASOPHILS % (AUTO) 1 % (0-10); EOSINOPHILS # (AUTO) 0.3 10^3/uL (0.0-0.3); EOSINOPHILS % (AUTO) 3 % (0-10); HEMATOCRIT 38 % (35-52); HEMOGLOBIN 13.1 G/DL (11.5-16.0); LYMPHOCYTES # (AUTO) 4.1 X 10^3 (1.0-4.0); LYMPHOCYTES % (AUTO) 33 % (12-44); MEAN CORPUSCULAR HEMOGLOBIN 26 PG (25-34); MEAN CORPUSCULAR HGB CONC 34 G/DL (32-36); MEAN CORPUSCULAR VOLUME 75 FL (80-99); MEAN PLATELET VOLUME 8.9 FL (7.4-10.4); MONOCYTES # (AUTO) 1.2 X 10^3 (0.0-1.0); MONOCYTES % (AUTO) 9 % (0-12); NEUTROPHILS # (AUTO) 6.8 X 10^3 (1.8-7.8); NEUTROPHILS % (AUTO) 54 % (42-75); PLATELET COUNT 430 10^3/uL (130-400); RED BLOOD COUNT 5.07 10^6/uL (4.35-5.85); RED CELL DISTRIBUTION WIDTH 17.4 % (10.0-14.5); WHITE BLOOD COUNT 12.4 10^3/uL (4.3-11.0)
[2018-07-10 15:10] LABS: ALANINE AMINOTRANSFERASE 38 U/L (0-55); ALBUMIN 4.2 GM/DL (3.2-4.5); ALKALINE PHOSPHATASE 107 U/L (40-136); BILIRUBIN,TOTAL 0.3 MG/DL (0.1-1.0); BUN/CREATININE RATIO 24; CALCIUM 9.8 MG/DL (8.5-10.1); CARBON DIOXIDE 25 MMOL/L (21-32); CHLORIDE 103 MMOL/L (98-107); CREATININE SERUM 0.83 MG/DL (0.60-1.30); GFR ESTIMATED > 60; GLUCOSE 95 MG/DL (70-105); POTASSIUM 3.3 MMOL/L (3.6-5.0); SODIUM 141 MMOL/L (135-145); TOTAL PROTEIN 7.3 GM/DL (6.4-8.2)
[2018-07-10 16:22] LABS: RED BLOOD COUNT 5.33 10^6/uL (4.35-5.85)
[2018-07-10 16:35] LABS: ABSOLUTE RETIC # 37 10e9/L (24-90); INR 3.8 (0.8-1.4); PROTHROMBIN TIME PATIENT 37.4 SEC (12.2-14.7); RETICULOCYTE % 0.69 % (0.50-2.40)
[2018-07-10 17:52] LABS: BASOPHILS % (AUTO) 0 % (0-10); EOSINOPHILS % (AUTO) 3 % (0-10); HEMATOCRIT 40 % (35-52); HEMOGLOBIN 13.6 G/DL (11.5-16.0); LYMPHOCYTES # (AUTO) 3.6 X 10^3 (1.0-4.0); LYMPHOCYTES % (AUTO) 26 % (12-44); MEAN CORPUSCULAR HEMOGLOBIN 26 PG (25-34); MEAN CORPUSCULAR HGB CONC 34 G/DL (32-36); MEAN CORPUSCULAR VOLUME 75 FL (80-99); MEAN PLATELET VOLUME 9.3 FL (7.4-10.4); MONOCYTES % (AUTO) 10 % (0-12); NEUTROPHILS # (AUTO) 8.3 X 10^3 (1.8-7.8); NEUTROPHILS % (AUTO) 60 % (42-75); PLATELET COUNT 444 10^3/uL (130-400); RED CELL DISTRIBUTION WIDTH 17.4 % (10.0-14.5); WHITE BLOOD COUNT 13.8 10^3/uL (4.3-11.0)
[2018-07-10 17:53] LABS: ANISOCYTOSIS SLIGHT; BASOPHILS # (AUTO) 0.1 10^3/uL (0.0-0.1); EOSINOPHILS # (AUTO) 0.4 10^3/uL (0.0-0.3); EOSINOPHILS % (MANUAL) 1 %; LYMPHOCYTES % (MANUAL) 29 %; MICROCYTOSIS SLIGHT; MONOCYTES # (AUTO) 1.4 X 10^3 (0.0-1.0); MONOCYTES % (MANUAL) 9 %; NEUTROPHILS % (MANUAL) 61 %; TOXIC GRANULATION/VACUOLAZATIO 1+
[~2018-08-07 14:50] MED LIST changes: -AMLO5TAB7 PO; +AMLO5TAB9 PO; -HURRICAINE EXT TUBE (BENZOCAINE) XX PRN; -LACTATED RINGERS 1,000 ML IV ONE; -LACTATED RINGERS 1,000 ML IV STA; -MIDAZOLAM 5 MG/5 ML (VERSED) VIAL ONE; -proPOfol 200 MG/20 ML (DIPRIVAN) VIAL IV ONE
[2018-08-07 14:59] LABS: BASOPHILS % (AUTO) 0 % (0-10); EOSINOPHILS # (AUTO) 0.5 10^3/uL (0.0-0.3); EOSINOPHILS % (AUTO) 5 % (0-10); HEMATOCRIT 39 % (35-52); HEMOGLOBIN 12.7 G/DL (11.5-16.0); LYMPHOCYTES # (AUTO) 3.7 X 10^3 (1.0-4.0); LYMPHOCYTES % (AUTO) 34 % (12-44); MEAN CORPUSCULAR HEMOGLOBIN 25 PG (25-34); MEAN CORPUSCULAR HGB CONC 32 G/DL (32-36); MEAN CORPUSCULAR VOLUME 78 FL (80-99); MEAN PLATELET VOLUME 8.9 FL (7.4-10.4); MONOCYTES % (AUTO) 9 % (0-12); NEUTROPHILS # (AUTO) 5.6 X 10^3 (1.8-7.8); NEUTROPHILS % (AUTO) 52 % (42-75); PLATELET COUNT 367 10^3/uL (130-400); RED BLOOD COUNT 5.04 10^6/uL (4.35-5.85); WHITE BLOOD COUNT 10.8 10^3/uL (4.3-11.0)
[2018-08-07 15:19] LABS: ALANINE AMINOTRANSFERASE 20 U/L (0-55); ALKALINE PHOSPHATASE 97 U/L (40-136); BILIRUBIN,TOTAL 0.5 MG/DL (0.1-1.0); BUN/CREATININE RATIO 14; CALCIUM 9.8 MG/DL (8.5-10.1); CARBON DIOXIDE 26 MMOL/L (21-32); CHLORIDE 105 MMOL/L (98-107); CREATININE SERUM 0.84 MG/DL (0.60-1.30); GFR ESTIMATED > 60; GLUCOSE 91 MG/DL (70-105); POTASSIUM 3.9 MMOL/L (3.6-5.0); SODIUM 140 MMOL/L (135-145); TOTAL PROTEIN 6.9 GM/DL (6.4-8.2)
== END 2018-10-08 | disposition home or self-care (01) ==
LOC: ONC 14:50
PROVIDERS: ATTEND Internal Medicine Hematology & Oncology
DX: Z86.718 Personal history of other venous thrombosis and embolism (principal); I10 Essential (primary) hypertension; F12.90 Cannabis use, unspecified, uncomplicated; Z79.82 Long term (current) use of aspirin; Z79.899 Other long term (current) drug therapy
CPT/HCPCS: 36415; 80053; 81270; 82728; 83540; 85007; 85025; 85027; 85045; 85610; 85730; 99213

== ENCOUNTER 2018-12-05 14:59 | Outpatient (RCR) | payer BC ==
[2018-11-08 14:44] LABS: BASOPHILS # (AUTO) 0.1 10^3/uL (0.0-0.1); BASOPHILS % (AUTO) 1 % (0-10); EOSINOPHILS # (AUTO) 0.4 10^3/uL (0.0-0.3); EOSINOPHILS % (AUTO) 3 % (0-10); HEMATOCRIT 40 % (35-52); HEMOGLOBIN 13.3 G/DL (11.5-16.0); LYMPHOCYTES # (AUTO) 3.5 X 10^3 (1.0-4.0); LYMPHOCYTES % (AUTO) 27 % (12-44); MEAN CORPUSCULAR HEMOGLOBIN 26 PG (25-34); MEAN CORPUSCULAR HGB CONC 33 G/DL (32-36); MEAN CORPUSCULAR VOLUME 78 FL (80-99); MEAN PLATELET VOLUME 8.9 FL (7.4-10.4); MONOCYTES # (AUTO) 1.1 X 10^3 (0.0-1.0); MONOCYTES % (AUTO) 9 % (0-12); NEUTROPHILS # (AUTO) 7.5 X 10^3 (1.8-7.8); NEUTROPHILS % (AUTO) 60 % (42-75); PLATELET COUNT 380 10^3/uL (130-400); RED CELL DISTRIBUTION WIDTH 16.3 % (10.0-14.5); WHITE BLOOD COUNT 12.6 10^3/uL (4.3-11.0)
[2018-11-08 15:00] LABS: ALANINE AMINOTRANSFERASE 27 U/L (0-55); ALBUMIN 4.1 GM/DL (3.2-4.5); ALKALINE PHOSPHATASE 96 U/L (40-136); BILIRUBIN,TOTAL 0.3 MG/DL (0.1-1.0); BUN/CREATININE RATIO 18; CALCIUM 9.7 MG/DL (8.5-10.1); CARBON DIOXIDE 26 MMOL/L (21-32); CHLORIDE 105 MMOL/L (98-107); CREATININE SERUM 0.87 MG/DL (0.60-1.30); GFR ESTIMATED > 60; GLUCOSE 93 MG/DL (70-105); POTASSIUM 3.5 MMOL/L (3.6-5.0); SODIUM 139 MMOL/L (135-145)
[~2018-12-05 14:59] MED LIST changes: +FERRIC CARBOXYMALTOSE (CANCER) 750 MG in NS (IVPB) CANCER CENTER 250 ML IV SCH; -RIVA20TA PO; +RIVA20TA2 PO
== END 2019-02-06 | disposition home or self-care (01) ==
LOC: ONC 14:59
PROVIDERS: ATTEND Internal Medicine Hematology & Oncology
DX: Z86.718 Personal history of other venous thrombosis and embolism (principal); I10 Essential (primary) hypertension; F12.90 Cannabis use, unspecified, uncomplicated; Z79.82 Long term (current) use of aspirin; Z79.899 Other long term (current) drug therapy
CPT/HCPCS: 36415; 80053; 82232; 82728; 83540; 85025; 85597; 85610; 85613; 85670; 85705; 85730; 96365; 99213